=== PATIENT | male | born 1935 | race Caucasian/White ===

== ENCOUNTER 2021-12-12 21:02 | Emergency (ER) | payer OTHER, MEDICARE, SELFPAY ==
--- NOTE | 2021-12-12 21:16 | ED.RN ---
Pt stated he emergently needed to go to the bathroom for a BM. Up to bathroom w/steady gait. RN stayed with pt. Pt then got up and starting vomiting a large amount of brown emesis and having diarrhea. Pt able to cleanse self. Gown placed and pt back to ED room.
[2021-12-12 21:18] VITALS: BP 140/82; PULSE 76; RESP 18; TEMP 36; O2SAT 96; BMI 27.2
[2021-12-12 21:29] VITALS: BP 129/82; PULSE 72; RESP 18; O2SAT 97
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
[2021-12-12 22:37] VITALS: BP 129/70; PULSE 72; RESP 18; O2SAT 98
== END 2021-12-12 22:38 | disposition home or self-care (01) ==
PROVIDERS: Emergency Provider Emergency Medicine; PCP Family Medicine; Visit Provider Emergency Medicine
DX: S80.12XA Contusion of left lower leg, initial encounter (principal); N40.0 Benign prostatic hyperplasia without lower urinary tract symptoms; V48.5XXA Car driver injured in noncollision transport accident in traffic accident, initial encounter
CPT/HCPCS: 99285

== ENCOUNTER 2021-12-14 13:47 | Emergency (ER) | payer OTHER, MEDICARE, SELFPAY ==
[2021-12-14 13:48] VITALS: BP 109/77; PULSE 72; RESP 16; TEMP 36.4; O2SAT 98; BMI 25.1
--- NOTE | 2021-12-14 14:38 | CT_ITS ---
STUDY: CT BRAIN WITHOUT CONTRAST REASON FOR EXAM: Male, 86 years old. HEADACHE Trauma TECHNIQUE: Transaxial CT imaging of the brain was performed without administration of intravenous contrast material. Individualized dose optimization techniques were used for this CT. COMPARISON: 06-30-10 no images. report only. FINDINGS: Normal calvarium. Normal soft tissues. Normal size ventricles and extra-axial spaces for the patient''s age. Normal white matter tracts of the cerebral hemispheres. Normal basal ganglia and thalami. Normal brainstem. Normal cerebellum. There is no intracranial hemorrhage. There are no findings of an acute ischemic infarction. There are calcifications around the carotid artery. These are noted in the cavernous carotid arteries. Normal visualized paranasal sinuses. ASPECTS 10 CT/Brain/Head without Contrast IMPRESSION: There are no acute intracranial findings. Electronically Signed: Deny Hughes MD at 15:08 EDT ,
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
[2021-12-14 15:16] LABS: Absolute Lymphocyte Count 6.09 X10^3/uL (0.83-4.51); Basophil# 0.01 X10^3/uL; Basophil% 0.1 % (0-1); Eosinophil# 0.02 X10^3/uL; Eosinophils% 0.2 % (0-5); Hematocrit 40.8 % (40-54); Hemoglobin 13.4 g/dL (13.0-16.5); Lymphocyte # 6.09 X10^3/ul (0.83-4.51); Lymphocyte % 64.2 % (19-41); Mean Corp Hgb Conc 32.8 g/dL (32-36); Mean Corpuscular Hgb 32.1 pg (27.0-32.0); Mean Corpuscular Volume 97.8 fL (80-94); Mean Platelet Vol. 10.8 fl (6.2-12.0); Monocyte# 0.33 X10^3/uL; Monocyte% 3.5 % (0-10); NRBC Flagged by Analyzer 0 % (0-5); Neutrophil # 3.01 X10^3/uL (2.7-7.7); Neutrophil % 31.8 % (47-70); POSITIVE DIFFERENTIAL YES; POSITIVE MORPHOLOGY YES; Platelet Count 105 K/mm3 (150-450); RBC Distribution Width CV 13.1 % (11.6-14.6); RBC Distribution Width SD 46.6 fl (35.1-43.9); Red Blood Count 4.17 M/mm3 (4.6-6.2); White Blood Count 9.5 K/mm3 (4.4-11.0)
[2021-12-14 15:21] LABS: Differential Indicated SCAN CRITERIA MET
[2021-12-14 15:33] LABS: Anion Gap 4 (5-15); BUN 21 mg/dL (7-18); BUN/Creat Ratio 20.6 RATIO (10-20); Calcium,Total 9.4 mg/dL (8.5-10.1); Chloride 107 mmol/L (98-107); Creatinine, Serum 1.02 mg/dL (0.70-1.30); EST Glomerular Filtration Rate 74 mL/min (>60); Est Glom Filt Rate - Afr Amer 89 mL/min (>60); Estimated Creatinine Clearance 55.37 ml/min; Glucose 93 mg/dL (74-106); Potassium 4.3 mmol/L (3.5-5.1); Sodium Level 139 mmol/L (136-145)
[2021-12-14 15:36] LABS: Differential Comment SCANNED; Reactive Lymphocyte 2+
[2021-12-14 15:45] VITALS: BP 152/95; PULSE 64; RESP 16; O2SAT 96
== END 2021-12-14 15:48 | disposition home or self-care (01) ==
PROVIDERS: Emergency Provider Emergency Medicine; PCP Family Medicine; Visit Provider Emergency Medicine
DX: S80.10XA Contusion of unspecified lower leg, initial encounter (principal); V43.52XA Car driver injured in collision with other type car in traffic accident, initial encounter; H93.299 Other abnormal auditory perceptions, unspecified ear
CPT/HCPCS: 70450; 80048; 85025; 99282

== ENCOUNTER 2022-06-07 14:19 | Emergency (ER) | payer MEDICARE, OTHER, SELFPAY ==
[2022-06-07 14:21] VITALS: BP 116/87; PULSE 75; RESP 16; TEMP 35.9; O2SAT 96; BMI 27.3
--- NOTE | 2022-06-07 15:08 | EDS_ITS ---
HPI History of Present Illness Chief Complaint: Abd Pain Informant: patient and spouse/S.O. Narrative Narrative: Patient presents with significant other evaluation intermittent right-sided chest pains that would come and go states is superficial. Denies trauma denies any heavy lifting. Symptoms more significant earlier that resolved. Very mild symptoms currently. Denies recent cough denies dyspnea. Denies left-sided or substernal chest symptoms. Denies pain with movement. Triage reports abdominal pain however denies abdominal pain denies nausea or vomiting or any diarrhea. No history of shingles he has a vaccine, chickenpox as a child.Denies any ca rdiac history. Prior similar symptoms: No PFSH PFSH Medical History History of kidney stones Retraction of blood clot Home Medications pantoprazole 40 mg tablet,delayed release 40 mg PO DAILY 12/12/21 [History Last Taken Unknown] tamsulosin 0.4 mg capsule 0.4 mg PO DAILY 12/12/21 [History Last Taken Unknown] Allergy/AdvReac Type Severity Reaction Status Date / Time No Known Allergies Allergy Verified 12/14/21 13:48 Surgical History History of back surgery Hx of knee surgery Social History Smoking Status: Never smoker ROS ROS ED Constitutional Constitutional ED: Denies chills, fever(s) or sweats Eyes Eyes: Denies change in vision ENT ENT ED: Denies dysphagia or sore throat Cardiovascular Cardiovascular: Reports chest pain; Denies leg edema, palpitations or racing heartbeat Respiratory/Chest Respiratory/Chest: Denies cough, dyspnea or dyspnea on exertion Gastrointestinal Gastrointestinal: Denies abdominal pain, diarrhea, nausea or vomiting Genitourinary Genitourinary ED: Denies dysuria, hematuria or urinary frequency Musculoskeletal Musculoskeletal: Denies back pain, extremity pain or neck pain Integumentary Denies rash or wounds Neurologic Neurologic: Denies headache(s), paresthesias or weakness EXAM Physical Exam Const Vital Signs: 06/07/22 14:21 06/07/22 14:21 Temperature 96.7 F L 96.7 F L Temperature Source Temporal Temporal Pulse Rate 75 75 Respiratory Rate 16 16 Blood Pressure 116/87 H 116/87 H Blood Pressure Mean 96 96 Pulse Ox 96 96 Oxygen Delivery Method Room Air Room Air Positive well nourished and well developed General Appearance ED: well developed and NAD HEENT Reports moist mucous membranes normocephalic and atraumatic Eyes PERRL, EOMs intact bilaterally and conjunctivae normal General Eye ED: Yes normal appearance of both eyes Neck no lymphadenopathy and supple General: Negative for tenderness Chest Wall inspection of chest normal and palpation of chest normal Chest Narrative: Currently not reproduce pain symptoms, there is no current rash of the chest wall. Chest: Negative for tenderness Resp normal respiratory effort and normal air movement Resp Narrative: Symmetric breath sounds Effort and Inspection: symmetric chest movement; Negative for respiratory distress Cardio regular rate, regular rhythm and no murmurs Peripheral Pulses: pulses 2+ throughout GI normal to inspection, nondistended, normoactive bowel sounds and non-tender Palpation: Negative for guarding or rebound tenderness present Back/Spine no CVA tenderness and no thoracic nor lumbar tenderness Extremity normal to inspection General Extremety ED: Negative for edema or tenderness General Extremity: Negative for edema Neuro oriented x3 and no sensory deficits noted Sensorium / Orientation: awake and alert Skin no rashes or lesions noted and no wounds MDM MDM MDM Narrative Medical decision making narrative: Interventions / MDM: Differential diagnosis: Musculoskeletal chest wall pain, shingles Diagnosis considered but do not suspect: Pneumothorax however normal breath sounds bilaterally. ACS however EKG with no ischemic findings and right-sided chest pain. My EKG interpretation: Sinus rate of 69, no ST or T wave changes QTc 409 PVC noted. Imaging independently reviewed and interpreted by myself: N/A External documents reviewed: N/A Test considered but not ordered:N/A ED course: Nonreproducible symptoms this time. EKG normal. Atypical right- sided symptoms. Discussed monitoring for rash discussion contact PCP or return for treatment if develops. Also discussed if any recurrent worsening or new sy mptoms of the chest to return for reevaluation. All questions were answered. Re-evaluation: stable Disposition discussed with patient/family/significant other: Patient and significant other Case discussed with consulting clinician: N/A Discharge Plan Triage Chief Complaint: Abd Pain ED Provider: Chris Catherine Dx/Rx/DC Orders Clinical Impression: Atypical chest pain Instructions: ED Chest Pain, Uncertain Cause Prescriptions: No Action tamsulosin 0.4 mg capsule 0.4 mg PO DAILY pantoprazole 40 mg tablet,delayed release (DR/EC) 40 mg PO DAILY Primary Care Provider: Kishor Coleman Referrals: Kishor Coleman MD [Primary Care Provider] - 3-5 Days Activity Restrictions/Additional Instructions: Atypical right-sided chest pain. Normal EKG. Monitor for any rash with for possible shingles that may develop. If noted rash contact your PCP or return for treatment. If any recurrent or worsening symptoms return for reevaluation. Otherwise follow-up with your doctor. Disposition Disposition: Home, Self Care Discharge Date/Time: 06/07/22 15:59
--- NOTE | 2022-06-07 15:10 | NURSING ---
NO OLD EKGS
== END 2022-06-07 15:59 | disposition home or self-care (01) ==
PROVIDERS: Emergency Provider Emergency Medicine; PCP Family Medicine; Visit Provider Emergency Medicine
DX: R10.9 Unspecified abdominal pain (principal); R07.89 Other chest pain
CPT/HCPCS: 93005; 99282

== ENCOUNTER → 2022-06-23 | Outpatient (CLI) | payer MEDICARE, SELFPAY ==
--- NOTE | 2022-06-23 11:00 | PET_ITS ---
EXAMINATION: FDG PET/CT INDICATIONS: 87-year-old male with a history of carcinoma of the lung, presenting for restaging examination. COMPARISON EXAMINATION: None available. INDEX LESION SIZE SUV INTERPRETATION Right lower thyroid gland, right anterior neck, level retroclavicular region 30.1 mm, largest 4.1 max Fulfills quantitative criteria for viable neoplasm ? Right hemithorax pulmonary parenchyma, multiple 74.8 mm 6.0 Fulfills quantitative criteria for viable neoplasm ? Right axilla 23.1 mm 3.9 Fulfills quantitative criteria for viable neoplasm ? Abdominal-pelvic mesentery 9.2 cm 5.5 Fulfills quantitative criteria for viable neoplasm ? Spleen-splenic parenchyma 13.3 mm 3.2 Fulfills quantitative criteria for viable neoplasm ? Subcutaneous nodules 44.1 mm 5.3 max Fulfills quantitative criteria for viable neoplasm ? Right posterior ninth-eleventh ribs ? 4.8 max Most consistent with trauma-fracture ? NON-INDEX LESION ? ? ? Anterior, middle mediastinum ? 2.9 max Quantitative criteria for viable neoplasm are not fulfilled ? TECHNIQUE: Following the intravenous administration of 14.98 mCi of F-18 deoxyglucose via the right antecubital fossa, multiplanar image acquisitions of the head, neck, chest, abdomen and pelvis to the level of the midthigh, obtained at one-hour post radiopharmaceutical administration contemporaneously interpreted with the current CT of the head, neck, chest, abdomen and pelvis dated 06/23/2022 via coregistration reveal: SERUM GLUCOSE LEVEL: 126 mg/dL HEIGHT: 71 inches WEIGHT: 196 pounds FINDINGS: HEAD/NECK: Increased radiopharmaceutical concentration is defined in the right anterior neck involving level , right lower thyroid colloid, the right retroclavicular region. The calculated maximum standard uptake value 4.1. The maximum axial diameter of the largest metabolic, morphologic abnormality is 30.1 mm. The visualized portion of the cerebral cortical-subcortical structures demonstrate symmetric and preserved glucose metabolism. CHEST: Enhanced FDG concentration is defined in the right lower anterior and posterior lung zone, right upper, right lower and right middle lobes. The calculated standard uptake value is 6.0. The largest corresponding mass density is 74.8 mm. Facilitated radiopharmaceutical concentration is defined in the anterior mediastinum, the upper middle mediastinum involving lymph node station 2R-L. The calculated standard uptake value is 2.9. Strict quantitative criteria for viable neoplasm are not fulfilled. An increase in radiopharmaceutical concentration is noted in the right axilla in two separate locations with a calculated standard uptake value of 3.9, and the largest corresponding soft tissue density measuring 23.[address] of the chest demonstrates the following anatomic characteristics: A right hemithorax pleural effusion is nonglucose avid. Left and additional right axillary soft tissue densities are nonglucose avid. Calcified and non-calcified additional mediastinal and thoracic perihilar soft tissue densities reveal no evidence of increased tracer uptake. Atherosclerotic calcification is defined in the thoracic aorta without evidence of dilatation, aneurysm formation. Bilateral axillary soft tissue densities are nonglucose avid. ABDOMEN/PELVIS: Multifocal increased radiopharmaceutical concentration is manifest in the abdominal and pelvic mesentery, right abdominal retroperitoneum in the posterior pararenal space, corresponding to soft tissue mass density. The calculated maximum standard uptake value is 5.5. The maximum axial diameter of the largest corresponding metabolic, morphologic abnormality is 9.2 cm. Facilitated FDG uptake is noted within a single nodular focus within the splenic parenchyma, with a calculated standard uptake value of 3.2 > the hepatic reference. The maximum axial diameter of the metabolic, morphologic abnormality is 13.[address] of the abdomen and pelvis is remarkable for the following: Calcified granuloma formation is noted within the hepatic and splenic parenchyma. Multiple cyst formation is noted in the bilateral kidneys. Calcification is defined in the bilateral renal units. Retained oral contrast material is noted within the visualized intestinal tract. Calcified phlebolith formation is identified. Calcification is noted within an enlarged prostate gland. SKELETAL/INTEGUMENTARY: Multiple subcutaneous nodules are defined on inspection of whole-body acquisitions, generating a calculated standard uptake value of 5.3. The maximum axial diameter of the metabolic, morphologic abnormality is 44.1 mm. Increased tracer uptake appears evident in the region of the right posteromedial chest wall, the ninth-eleventh bridge. The calculated standard uptake value 4.8. PET/PET/CT Tumor Base -Thigh Init IMPRESSION: 1. ABNORMAL EXAMINATION INDICATIVE OF MALIGNANT-PROBABLY NEOPLASM. 2. Increased radiopharmaceutical concentration defined in the right lower thyroid gland, anterior neck involving level , and right retroclavicular lymph node distributions fulfills quantitative criteria for viable neoplasm. 3. Enhanced tracer uptake noted in the right hemithorax pulmonary parenchyma to include the right upper, right middle, and right lower lobes, fulfills quantitative criteria for malignant transformation. 3. Facilitated FDG visualized in the right axilla fulfills quantitative criteria for malignant transformation. 4. The abdominal and pelvic mesentery hypermetabolic foci fulfill quantitative criteria for neoplastic infiltration. 5. The splenic focus glucose hypermetabolism fulfills quantitative criteria for viable splenic neoplasm. (Anitha et al., Journal of Nuclear Medicine 44:1072, 2004). 6. Subcutaneous nodular hypermetabolic foci fulfill quantitative criteria for malignancy. 7. The increase in radiopharmaceutical concentration defined in the ninth-eleventh posterior ribs, linear in presentation, likely represents a component of trauma-fracture. Histopathologic analysis may be indicated. 8. Enhanced tracer uptake noted in the mediastinal structures do not fulfill quantitative criteria for viable neoplastic infiltration. (Edwin et al, Journal of Clinical Oncology, 16:2142, 1998). Electronic Signature Max Joseph D.O. Accurate Quantification of SUVs for this report are calculated using the exclusive [employer]. (U.S. Patent No. 10, 674, 983 B2 [phone] [place] patent [phone]). Standardization and correction of the FDG SUV metric via [employer] technology allow for vendor non-specific objective quantitative examination comparison and optimization of the sensitivity and specificity of the FDG PET-CT examination. . Electronically Signed: Max Joseph, at 7:28 EDT ,
== END | disposition home or self-care (01) ==
PROVIDERS: PCP Family Medicine
DX: D49.1 Neoplasm of unspecified behavior of respiratory system (principal)
CPT/HCPCS: 78815; A9552

== ENCOUNTER → 2022-06-29 | Outpatient (CLI) | payer MEDICARE, SELFPAY ==
--- NOTE | 2022-06-29 | FLU_PTH ---
PATIENT: PIOTR PARKS LOC: [facility] U#:[id number] AGE/SX: 87/M ROOM: RE06/29/[address]: Dr. Dustin Elizondo MD : 1935 BED: DIS: 06/29/2022 SPEC #: [id number] RECD: 06/29/22 17:14 STATUS: SHERWIN REChelly #: [id number] ANDIE: 06/29/22 00:[address]: Dustin Elizondo DEPT: CYTOLOGY RECD BY: Sabiha Byrnes ENTERED: 06/30/22 07:52 SP TYPE: Fluid OTHR DR: Dr. Kishor Coleman MD Tissues: A - Thyroid gland, NOS B - Thyroid gland, NOS C - Neck, NOS D - Neck, NOS Procedures: Special Stain Group II Surgery Specimen Level IV Cytospin Fluid Cytology Other HEADER OPERATION: Fine needle aspiration right thyroid PRE-OP DIAGNOSIS: Abnormal thyroid ultrasound/PET scan TISSUE SUBMITTED: A - FNA right thyroid fluid, B - FNA right thyroid x12 slides, C - FNA right neck mass fluid, D - FNA right neck mass x12 slides DIAGNOSIS CYTOLOGY A. Fine needle aspiration, right thyroid nodule (cytospin and cell block): Consistent with B-cell lymphoma of centrocytic origin. See comment. B. Fine needle aspiration, right thyroid nodule (smears): Consistent with lymphoproliferative disorder/lymphoma. See Comment. C. Fine needle aspiration, right neck mass (cytospin and cell block): Consistent with B-cell lymphoma of centrocytic origin. See comment. D. Fine needle aspiration, right neck mass (smears): Consistent with lymphoproliferative disorder/lymphoma. See comment. AM:temo 07/01/2022 COMMENT A & C. Immunohistochemistry ([id number]) supports the above diagnosis and reveals a B-cell lymphocyte population of centrocytic origin with high proliferation index (Ki67 (80%). A biopsy is recommended for definitive classification. B & D. Smears show a mixed small, medium sized and large cell lymphocyte population consistent with a lymphoproliferative disorder. Follicle cells of thyroid origin are not identified. Clinical correlation is suggested. Case has been reviewed in consultation with Dr. Powell who concurs with the above diagnosis. IDC:SJ CYTOLOGY STUDY Slides are reviewed. CYTOLOGY GROSS A - Received is 30 ml of campoverde cloudy fluid labeled with the patient's name and and designated per the requisition as right thyroid. Submitted for cytology preparation including cell block. B - Received are 12 smears labeled with the patient's name and designated per the requisition as right thyroid. Submitted for staining. C - Received is 30 ml of light campoverde cloudy fluid labeled with the patient's name and and designated per the requisition as right neck mass. Submitted for cytology preparation including cell block. D - Received are 12 smears labeled with the patient's name and designated per the requisition as right neck mass. Submitted for staining. / temo 06/30/2022 TC:5 CPT: 99013 x4, 03858 x2
--- NOTE | 2022-06-29 | IMM_PTH ---
PATIENT: PIOTR PARKS LOC: [facility] U#:[id number] AGE/SX: 87/M ROOM: RE06/29/[address]: Dr. Dustin Elizondo MD : 1935 BED: DIS: 06/29/2022 SPEC #: [id number] RECD: 07/01/22 12:59 STATUS: SHERWIN REQ #: [id number] ANDIE: 06/29/22 00:[address]: Dustin Elizondo DEPT: IMMUNOHISTOCHEMISTRY RECD BY: Lindsey Mccullough ENTERED: 07/01/22 13:02 SP TYPE: IMMUNO OTHR DR: Dr. Kishor Coleman MD Tissues: A - Thyroid gland, NOS C - Thyroid gland, NOS Procedures: BCL-2 (add) BCL-6 (add) CD10 (add) CD15 (add) CD20 (add) CD23 (add) CD30 (add) CD43 (add) CD45 (add) CD5 (add) CD79A (add) CYCLIN (add) KI-67 (add) P53 (add) TTF1 (add) MUM1 (add) C-MYC (add) CD3 (initial) PHYSICIAN & INSTITUTION [facility] [id number] SPECIMEN INFORMATION: Tissue Source: A ? FNA, right thyroid, C ? FNA right neck mass Clinical Info: Abnormal thyroid ultrasound/PET scan Specimen Number: [id number] A & C CPT code: 36361 x2, 32132 x34 METHODOLOGY: Deparaffinized sections of prefer/formalin-fixed tissue or PAP/DQ stained slides are incubated with monoclonal/polyclonal antibodies/oligonucleotide probes. Localization is made via biotin free immunoperoxidase method. Appropriate controls are performed and reacted as expected. Results on target cell population are indicated in the following table: RESULTS: ANTIBODY / CLONE RESULT Block A CD3 (PS1) positive, small population of T-cells CD5 (SP10) positive, small population of T-cells CD20 (L26) positive CD45 (RP2/18) positive CD79a (11E3) positive BCL-2 (bcl-2/100/D5) positive TTF-1 (8G7G3/1) negative P53 (DO-7) positive, rare Ki-67 (30-9) positive, high CD10 (56C6) positive CD43 (L60) positive CD23 (1B12) negative CD15 (MMA) negative CD30 (Andreas-H2) negative BCL-6 (JV098Y/A8) positive Cyclin D1/BCL-1 (SP4) negative MUM1 (MRQ-43) * C-MYC (Y69) negative Block C CD3 (PS1) positive CD5 (SP10) positive CD20 (L26) positive CD45 (RP2/18) positive CD79a (11E3) positive BCL-2 (bcl-2/100/D5) positive TTF-1 (8G7G3/1) negative P53 (DO-7) positive, rare Ki-67 (30-9) positive, high CD10 (56C6) positive CD43 (L60) positive CD23 (1B12) negative CD15 (MMA) negative CD30 (Andreas-H2) negative BCL-6 (YU726X/A8) positive Cyclin D1/BCL-1 (SP4) negative MUM1 (MRQ-43) * C-MYC (Y69) negative *?equivocal These tests were developed and their performance characteristics determined by [facility]. They may not have been cleared or approved by the U.S. Food and Drug Administration. The FDA has determined that such clearance or approval is not necessary. The above immunohistochemical/dualISH markers are ordered and reviewed by the Pathologist. INTERPRETATION: A. Fine needle aspiration, right thyroid (cell block): Consistent with B-cell lymphoma of centrocytic origin. C. Fine needle aspiration, right neck mass (cell block): Consistent with B-cell lymphoma of centrocytic origin. AM:temo 07/03/2022 Case has been reviewed in consultation with Dr. Powell who concurs with the above diagnosis. IDC:KEYON
== END | disposition home or self-care (01) ==
PROVIDERS: PCP Family Medicine; Visit Provider Surgery
DX: R93.89 Abnormal findings on diagnostic imaging of other specified body structures (principal)
CPT/HCPCS: 88108; 88161; 88305; 88313; 88341; 88342

== ENCOUNTER → 2022-11-03 | Outpatient (CLI) | payer MEDICARE, SELFPAY ==
--- NOTE | 2022-11-03 09:30 | PET_ITS ---
EXAMINATION: FDG PET-CT INDICATIONS: An 87-year-old male with a history of lymphoma presenting for restaging examination. COMPARISON EXAMINATION: Prior FDG PET CT study dated 06/23/22. INDEX LESION SIZE SUV LUGANO SCORE INTERPRETATION PERSISTENT: Right axilla 2.3 comp to 3.9, 06/23/22 3 comp to 5 Quantitative criteria for viable neoplasm are not fulfilled, interim metabolic improvement-quantitative complete metabolic response. PREVIOUS: all additional prior defined hypermetabolic foci Demonstrate metabolic resolution on the current examination. TECHNIQUE: Following the intravenous administration of 13.53 mCi of F-18 deoxyglucose via the right hand, multiplanar image acquisitions of the head, neck, chest, abdomen and pelvis to level of mid-thigh, lower extremities obtained at one hour post radiopharmaceutical administration contemporaneously interpreted with the current CT of the head, neck, chest, abdomen and pelvis to level of mid-thigh, lower extremities dated 11/03/22 via coregistration and prior FDG PET CT study dated 06/23/22 reveal: SERUM GLUCOSE LEVEL: 123 mg/dl. HEIGHT: 71 inches. WEIGHT: 201 lbs. FINDINGS: Head/Neck: There is no evidence of abnormal increased glucose metabolism in the pharyngeal mucosal space, parapharyngeal space, bilateral-lateral and anterior neck, hypopharynx and distribution of the laryngeal structures. The visualized portion of the cerebral cortical-subcortical structures demonstrate symmetric and preserved glucose metabolism. CHEST: Facilitated uptake is noted in the right axilla in a single nodular focus. The calculated maximum standard uptake value is 2.3 compared to 3.9 defined on the examination dated 06/23/22. The Lugano-Deauville score is 3 compared to 5. There is no quantitative scintigraphic evidence of abnormal increased glucose metabolism within the context of the bilateral hemithorax pulmonary parenchyma, right and left hemithoracic pleural interface, mediastinal structures and thoracic perihilum.? There is visualization of the Eiyjsnft-Nzpp-W-Cath. The previously defined morphologic-anatomic changes described on the prior FDG PET-CT report dated 06/23/22, are essentially unchanged on the current examination. Abdomen/Pelvis: Normal physiologic distribution of the radiopharmaceutical is apparent in the hepatic (4.2) and splenic parenchyma, both renal units, bladder and visualized intestinal tract. Diffuse radiopharmaceutical concentration is noted in all four quadrants of the abdomen and pelvis. Anatomic changes described on the prior FDG PET-CT report dated 06/23/22, are unchanged on the current examination. The previously identified abdominal-pelvic mesenteric-splenic parenchymal hypermetabolic foci are not apparent on the current examination. Skeletal/INTEGUMENTARY: Degenerative changes are noted in the cervical, thoracic and lumbar spine. There is interval resolution of the ninth-eleventh rib and subcutaneous nodularity previously described. PET/PET/CT Tumor Base -Thigh Subs IMPRESSION: 1. NEGATIVE EXAMINATION. There is no definitive quantitative scintigraphic evidence of recurrent-viable neoplasm. 2. Mild increased radiopharmaceutical concentration presumably redefined in the right axilla does not fulfill quantitative criteria for malignant transformation. 3. There is interim resolution of all prior defined hypermetabolic foci as defined above. 4. Overall, compared to the prior FDG PET CT study dated 06/23/22, there is current absence of defined viable neoplastic disease. Electronic Signature Max Joseph D.O. Accurate Quantification of SUVs and standardized [place] scores for this report are calculated using the exclusive [employer] Technology, (U.S. Patent No. 10, 674, 983 B2 [phone] [place] patent [phone] ). Standardization and correction of the FDG SUV metric exclusively available with [employer] intellectual property, allow for vendor non-specific objective quantitative sequential FDG PET-CT comparison and otherwise unobtainable optimization of the sensitivity and specificity of the examination. [email or web address] Electronically Signed: Max Joseph DO at 9:09 EDT ,
== END | disposition home or self-care (01) ==
LOC: ONC 09:20
PROVIDERS: PCP Family Medicine; Referring Provider Internal Medicine Hematology & Oncology; Visit Provider Internal Medicine Hematology & Oncology
DX: C83.38 Diffuse large B-cell lymphoma, lymph nodes of multiple sites (principal); K92.2 Gastrointestinal hemorrhage, unspecified; D64.9 Anemia, unspecified; R06.09 Other forms of dyspnea
CPT/HCPCS: 78815; A9552

== ENCOUNTER 2022-11-27 19:17 | Observation (INO) | payer MEDICARE, SELFPAY ==
[2022-11-27 19:18] VITALS: BP 124/109; PULSE 81; RESP 18; TEMP 36.5; O2SAT 94; BMI 29.7
--- NOTE | 2022-11-27 19:45 | RAD_ITS ---
EXAM: XR CHEST, 1 VIEW CLINICAL INDICATION: chest pain TECHNIQUE: Frontal view of the chest. COMPARISON: No relevant prior studies available. FINDINGS: LUNGS AND PLEURAL SPACES: Unremarkable. No consolidation or edema. No pneumothorax. No effusion. HEART: Unremarkable. Cardiac silhouette not enlarged. MEDIASTINUM: Central airways and mediastinal contour are unremarkable. BONES/JOINTS: Unremarkable. SOFT TISSUES: Unremarkable. TUBES, LINES AND DEVICES: Right-sided Port-A-Cath is in place with the distal tip overlying the superior vena cava. RAD/Chest 1 View (Portable) IMPRESSION: No acute findings in the chest. Electronically Signed: Barry Rojas MD at 20:11 EDT ,
[2022-11-27 19:56] LABS: Absolute Lymphocyte Count 0.89 X10^3/uL (0.83-4.51); Absolute Neutrophil Count 3.2 X10^3/uL (2.0-7.7); Basophil# 0.01 X10^3/uL; Basophil% 0.2 % (0-1); Eosinophil# 0.05 X10^3/uL; Eosinophils% 1.1 % (0-5); Hematocrit 33.3 % (40-54); Hemoglobin 10.1 g/dL (13.0-16.5); Lymphocyte # 0.89 X10^3/ul (0.83-4.51); Lymphocyte % 19.6 % (19-41); Mean Corp Hgb Conc 30.3 g/dL (32-36); Mean Corpuscular Hgb 26.1 pg (27.0-32.0); Mean Platelet Vol. 11.1 fl (6.2-12.0); Monocyte# 0.41 X10^3/uL; Monocyte% 9.1 % (0-10); NRBC Flagged by Analyzer 0 % (0-5); Neutrophil # 3.15 X10^3/uL (2.7-7.7); Neutrophil % 69.6 % (47-70); Platelet Count 134 K/mm3 (150-450); RBC Distribution Width SD 59.8 fl (35.1-43.9); Red Blood Count 3.87 M/mm3 (4.6-6.2); White Blood Count 4.5 K/mm3 (4.4-11.0)
--- NOTE | 2022-11-27 20:12 | EDS_ITS ---
HPI History of Present Illness Chief Complaint: Syncope Narrative Narrative: 87-year-old male presenting with his daughter for evaluation. Apparently they were at [employer] and had just eaten and he sat on a bench and the patient started holding his head and slumped over forward. His daughter states he did not fall and she caught him and set him back. He states he recalls most of this but thinks he might of been unconscious for a little while. Daughter states is at least 5 minutes. EMS was called. By the time EMS arrived the patient was at his baseline. Denies any chest pain or shortness of breath. He states that during the episode he felt blah. He had been otherwise healthy prior to this. 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 He states that he is in remission currently after a negative PET scan. 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% History of kidney stones Pulmonary embolism Retraction of blood clot Home Medications pantoprazole 40 mg tablet,delayed release 40 mg PO DAILY 12/12/21 [History Last Taken Unknown] tamsulosin 0.4 mg capsule 0.4 mg PO DAILY 12/12/21 [History Last Taken Unknown] Allergy/AdvReac Type Severity Reaction Status Date / Time No Known Allergies Allergy Verified 11/27/22 19:21 Surgical History History of back surgery Hx of knee surgery Social History Smoking Status: Never smoker ROS ROS ED Constitutional Constitutional ED: Denies chills, fever(s) or sweats Eyes Eyes: Denies blurry vision or change in vision ENT ENT ED: Denies ear pain or sore throat Cardiovascular Cardiovascular: Denies chest pain, palpitations or racing heartbeat Respiratory/Chest Respiratory/Chest: Denies cough, dyspnea or sputum Gastrointestinal Gastrointestinal: Denies abdominal pain, constipation, diarrhea, nausea or vomiting Genitourinary Genitourinary ED: Denies dysuria, hematuria or urinary frequency Musculoskeletal Musculoskeletal: Denies arthralgias, myalgias or neck pain Integumentary Denies abscess, Abrasions or rash Neurologic Neurologic: Denies headache(s), paresthesias or weakness Psychiatric Psychiatric: Denies anxiety, depression, suicidal ideation or suicidal thoughts Endocrine Endocrinology: Denies polydipsia or polyuria EXAM Physical Exam Const Vital Signs: 11/27/22 19:18 11/27/22 20:12 11/27/22 21:03 Temperature 97.7 F L Temperature Source Oral Pulse Rate 81 Pulse Rate [Lying] 78 Pulse Rate [Sitting (for 1 minute prior to obtaining)] 79 Pulse Rate [Standing (for 1 minute prior to obtaining)] 93 Respiratory Rate 18 Blood Pressure 124/109 H Blood Pressure [Lying] 136/79 H Blood Pressure [Sitting (for 1 minute prior to obtaining)] 135/84 H Blood Pressure [Standing (for 1 minute prior to obtaining)] 141/79 H Blood Pressure Mean 114 Blood Pressure Mean [Lying] 98 Blood Pressure Mean [Sitting (for 1 minute prior to obtaining)] 101 Blood Pressure Mean [Standing (for 1 minute prior to obtaining)] 99 Pulse Ox 94 Oxygen Delivery Method Room Air Room Air 11/27/22 21:31 Temperature Temperature Source Pulse Rate 77 Pulse Rate [Lying] Pulse Rate [Sitting (for 1 minute prior to obtaining)] Pulse Rate [Standing (for 1 minute prior to obtaining)] Respiratory Rate 18 Blood Pressure 131/82 H Blood Pressure [Lying] Blood Pressure [Sitting (for 1 minute prior to obtaining)] Blood Pressure [Standing (for 1 minute prior to obtaining)] Blood Pressure Mean 98 Blood Pressure Mean [Lying] Blood Pressure Mean [Sitting (for 1 minute prior to obtaining)] Blood Pressure Mean [Standing (for 1 minute prior to obtaining)] Pulse Ox 95 Oxygen Delivery Method Room Air Positive well nourished General Appearance ED: NAD; Negative for pallor HEENT Reports moist mucous membranes Eyes PERRL and EOMs intact bilaterally General Eye ED: Negative for pale conjunctiva Chest Wall inspection of chest normal Resp normal respiratory effort and clear to auscultation bilaterally Auscultation: Negative for rales, rhonchi or wheezes Cardio regular rate and regular rhythm GI normal to inspection, nondistended, normoactive bowel sounds Neuro oriented x3 and CN's II-XII intact bilaterally Sensorium / Orientation: alert Motor Exam: strength 5/5 throughout Psych mental status grossly normal Skin no rashes or lesions noted General Skin Exam: Negative for jaundice or pallor MDM MDM MDM Narrative Medical decision making narrative: Patient presenting with an episode of altered mental status. His daughter feels like he might have fainted. He does not recall that he probably lost consciousness. He feels like he is at his baseline now. No history of fainting. He did not have any chest pain or shortness of breath. Patient is in remission from B-cell lymphoma. Differential includes acute coronary syndrome, syncope, CHF, dehydration, electrode normalities, anemia, GI bleed, arrhythmia. Patient is on Eliquis with history of PEs. He does deny black or bloody stools. He has not been ill recently. BC will be obtained to assess white blood cell count hemoglobin, platelets. BMP to assess renal function electrolytes. EKG and high-sensitivity troponin to assess for ischemia and dysrhythmia. Chest pain rule out pneumonia or CHF. Is normal with a white blood cell count of 4.5. Hemoglobin 10.1. Recently this was checked it was 10.5. The daughter knows that his hemoglobin has been low. No black or bloody stools. Renal function and electrolytes within normal limits. High-sensitivity troponin initially 79. Troponin 83. Orthostatic vital signs show normal blood pressures however his heart rate goes from the 70s to the 90s. EKG shows a normal sinus rhythm with a ventricular rate 98 bpm without sign of ischemic change or ectopy. Patient been stable on the heart monitor. Chest x-ray on my interpretation shows no acute process. Radiologist interprets this and agrees. Discussed with hospitalist for admission given the extensive length of syncope and unprovoked syncopal episode. Patient minimal to admission. Impression: 1. Syncope 2. Elevated troponin Lab Data Labs: Laboratory Results - last 24 hr 11/27/22 11/27/22 19:50 21:55 WBC 4.5 RBC 3.87 L Hgb 10.1 L Hct 33.3 L MCV 86.0 MCH 26.1 L MCHC 30.3 L RDW Std Deviation 59.8 H RDW Coeff of Omer 19.0 H Plt Count 134 L MPV 11.1 Immature Gran % (Auto) 0.400 Neut % (Auto) 69.6 Lymph % (Auto) 19.6 [place] % (Auto) 9.1 Eos % (Auto) 1.1 Baso % (Auto) 0.2 Absolute Neuts (auto) 3.2 Absolute Lymphs (auto) 0.89 Nucleated RBC % 0 Sodium 139 Potassium 3.6 Chloride 110 H Carbon Dioxide 25.0 Anion Gap 4 L BUN 23 H Creatinine 1.13 Estim Creat Clear Calc 49.05 Est GFR (MDRD) Af Amer 79 Est GFR (MDRD) Non-Af 65 BUN/Creatinine Ratio 20.4 H Glucose 126 H Calcium 8.9 Troponin I High Sens 79 H 83 H Radiography Diagnostic Testing: Clinical Impression(s) from Imaging Studies Chest X-Ray 11/27/22 19:45 IMPRESSION: No acute findings in the chest. Electronically Signed: Barry Rojas MD at 20:11 EDT , Discharge Plan Triage Chief Complaint: Syncope ED Provider: Everton Boo Dx/Rx/DC Orders Prescriptions: No Action tamsulosin 0.4 mg capsule 0.4 mg PO DAILY pantoprazole 40 mg tablet,delayed release (DR/EC) 40 mg PO DAILY Primary Care Provider: Kishor Coleman Referrals: Kishor Coleman MD [Primary Care Provider] -
[2022-11-27 20:59] LABS: Anion Gap 4 (5-15); BUN 23 mg/dL (7-18); BUN/Creat Ratio 20.4 RATIO (10-20); Calcium,Total 8.9 mg/dL (8.5-10.1); Chloride 110 mmol/L (98-107); Creatinine, Serum 1.13 mg/dL (0.70-1.30); EST Glomerular Filtration Rate 65 mL/min (>60); Est Glom Filt Rate - Afr Amer 79 mL/min (>60); Estimated Creatinine Clearance 49.05 ml/min; Glucose 126 mg/dL (74-106); Potassium 3.6 mmol/L (3.5-5.1); Sodium Level 139 mmol/L (136-145); Troponin-I HS (w/2H Reflex) 79 pg/mL (3.0-78.0)
[2022-11-27 21:03] VITALS: BP 135/84; BP 136/79; BP 141/79; PULSE 78; PULSE 79; PULSE 93
[2022-11-27 21:31] VITALS: BP 131/82; PULSE 77; RESP 18; O2SAT 95
[2022-11-27 21:52] LABS: Reflex Troponin-HS? (from REC) Y
[2022-11-27 22:21] LABS: Troponin-I HS 83 pg/mL (3.0-78.0)
--- NOTE | 2022-11-27 22:59 | HP.PCM.HOS_ITS ---
HPI - General General Date of Admission: 11/27/22 Date of Service: 11/27/22 Chief Complaint: Syncope HPI Narrative PIOTR PARKS, is a 87 M with a significant history of B cell lymphoma in remission with last chemotherapy in September 2022 presents emergency department with syncope. Patient and her daughter went to [facility] [place]. They brought some food and sat down to eat it. Patient was in the sitting position after eating. He bent over. He then became unresponsive and started to lose his postural tone. His daughter held him and prevented him from falling. Patient was then brought to the emergency department. Syncopal episode lasted for about 5 minutes. Of note patient had a chemotherapy on November 06, 2022. The chemotherapy showed mildly reduced ejection fraction. 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% History of kidney stones Pulmonary embolism Retraction of blood clot Home Medications pantoprazole 40 mg tablet,delayed release 40 mg PO DAILY 12/12/21 [History Last Taken Unknown] tamsulosin 0.4 mg capsule 0.4 mg PO DAILY 12/12/21 [History Last Taken Unknown] acyclovir 400 mg tablet 400 mg PO Q12H 11/27/22 [History Last Taken Unknown] allopurinol 100 mg tablet 100 mg PO DAILY 11/27/22 [History Last Taken Unknown] apixaban 5 mg tablet (Eliquis) 5 mg PO Q12H 11/27/22 [History Last Taken Unknown] Allergy/AdvReac Type Severity Reaction Status Date / Time No Known Allergies Allergy Verified 11/27/22 19:21 Family History Other Heart disease Surgical History History of back surgery Hx of knee surgery Social History Smoking Status: Never smoker ROS ROS Narrative Pertinent positives and pertinent negatives as noted in HPI. All other systems were reviewed and are negative Vital Signs Vital Signs Vital Signs: 11/27/22 19:18 11/27/22 20:12 11/27/22 21:03 Temperature 97.7 F L Temperature Source Oral Pulse Rate 81 Pulse Rate [Lying] 78 Pulse Rate [Sitting (for 1 minute prior to obtaining)] 79 Pulse Rate [Standing (for 1 minute prior to obtaining)] 93 Respiratory Rate 18 Blood Pressure 124/109 H Blood Pressure [Lying] 136/79 H Blood Pressure [Sitting (for 1 minute prior to obtaining)] 135/84 H Blood Pressure [Standing (for 1 minute prior to obtaining)] 141/79 H Blood Pressure Mean 114 Blood Pressure Mean [Lying] 98 Blood Pressure Mean [Sitting (for 1 minute prior to obtaining)] 101 Blood Pressure Mean [Standing (for 1 minute prior to obtaining)] 99 Pulse Ox 94 Oxygen Delivery Method Room Air Room Air 11/27/22 21:31 Temperature Temperature Source Pulse Rate 77 Pulse Rate [Lying] Pulse Rate [Sitting (for 1 minute prior to obtaining)] Pulse Rate [Standing (for 1 minute prior to obtaining)] Respiratory Rate 18 Blood Pressure 131/82 H Blood Pressure [Lying] Blood Pressure [Sitting (for 1 minute prior to obtaining)] Blood Pressure [Standing (for 1 minute prior to obtaining)] Blood Pressure Mean 98 Blood Pressure Mean [Lying] Blood Pressure Mean [Sitting (for 1 minute prior to obtaining)] Blood Pressure Mean [Standing (for 1 minute prior to obtaining)] Pulse Ox 95 Oxygen Delivery Method Room Air Weight Weight: 96.5 kg Body Mass Index (BMI) 29.7 Physical Exam Narrative Physical exam: General: Well-nourished, well-developed. Head: Normocephalic, atraumatic, no tenderness Eyes: Vision is grossly intact. EOMI ENT, no trauma, moist mucous membranes, no rhinorrhea Neck: Nontender, No thyromegaly. CVS: Regular rate and rhythm. S1-S2 present. No murmur, gallop or rub. Respiratory : clear to auscultation bilaterally, chest wall nontender Abdomen: Soft, nontender, nondistended, normal bowel sounds, no masses : Deferred Back: Nontender, no CVA tenderness, Extremities: Nontender full range of motion, no trauma Skin: Normal color, no trauma, abrasions Neuro: Alert, oriented, cranial nerves II through XII grossly intact. Psychiatry: Normal mood. Normal affect. Not depressed. Not anxious. Results Lab / Micro Data 11/28/22 02:18 11/28/22 02:18 Labs: Laboratory Results - last 24 hr 11/27/22 19:50: WBC 4.5, RBC 3.87 L, Hgb 10.1 L, Hct 33.3 L, MCV 86.0, MCH 26.1 L, MCHC 30.3 L, RDW Std Deviation 59.8 H, RDW Coeff of Omer 19.0 H, Plt Count 134 L, MPV 11.1, Immature Gran % (Auto) 0.400, Neut % (Auto) 69.6, Lymph % (Auto) 19.6, [place] % (Auto) 9.1, Eos % (Auto) 1.1, Baso % (Auto) 0.2, Absolute Neuts (auto) 3.2, Absolute Lymphs (auto) 0.89, Nucleated RBC % 0, Sodium 139, Potassium 3.6, Chloride 110 H, Carbon Dioxide 25.0, Anion Gap 4 L, BUN 23 H, Creatinine 1.13, Estim Creat Clear Calc 49.05, Est GFR (MDRD) Af Amer 79, Est GFR (MDRD) Non-Af 65, BUN/Creatinine Ratio 20.4 H, Glucose 126 H, Calcium 8.9, Troponin I High Sens 79 H 11/27/22 21:55: Troponin I High Sens 83 H Radiology Impression Chest X-Ray 11/27/22 19:45 IMPRESSION: No acute findings in the chest. Electronically Signed: Barry Rojas MD at 20:11 EDT Reading Location ID and State: [address] [place] [address] Tel , Service support , Assessment & Plan Assessment/Plan (1) Syncope and collapse: PLAN: Plan Syncope and collapse EKG independently reviewed and it was unremarkable. Impression of chest x-ray by radiologist: No acute findings in the chest. Actual chest x-ray image was independently interpreted. I agree with the radiol ogist interpretation. Initial high sensitive troponin was 79. Trended to 83. Continue to trend. Trend troponin Orthostatic vitals per protocol DVT prophylaxis: Not indicated as patient is on Eliquis for history of PE and that has been continued. Time spent in the patient's overall evaluation,decision-making process, review of diagnostic data, adjustment of management, discussion with other providers, nursing nursing and ancillary staff involved in patient's care documentation, 50 minutes. Charges/Coding Visit Charges Inpatient E&M: 75340 Init Hosp L2
[2022-11-28] VITALS (7 sets, daily range): BP systolic 118–149; BP diastolic 75–99; PULSE 69–94; RESP 16–18; TEMP 36.3–36.6; O2SAT 90–98; BMI 28.6
[2022-11-28 02:43] LABS: Absolute Lymphocyte Count 0.74 X10^3/uL (0.83-4.51); Absolute Neutrophil Count 2.9 X10^3/uL (2.0-7.7); Basophil# 0.02 X10^3/uL; Basophil% 0.5 % (0-1); Eosinophil# 0.01 X10^3/uL; Eosinophils% 0.2 % (0-5); Hematocrit 33.4 % (40-54); Lymphocyte # 0.74 X10^3/ul (0.83-4.51); Lymphocyte % 18.3 % (19-41); Mean Corp Hgb Conc 29.9 g/dL (32-36); Mean Corpuscular Hgb 25.9 pg (27.0-32.0); Mean Corpuscular Volume 86.5 fL (80-94); Mean Platelet Vol. 11.1 fl (6.2-12.0); Monocyte# 0.34 X10^3/uL; Monocyte% 8.4 % (0-10); NRBC Flagged by Analyzer 0 % (0-5); Neutrophil # 2.92 X10^3/uL (2.7-7.7); Neutrophil % 72.4 % (47-70); Platelet Count 120 K/mm3 (150-450); RBC Distribution Width CV 18.9 % (11.6-14.6); RBC Distribution Width SD 59.7 fl (35.1-43.9); Red Blood Count 3.86 M/mm3 (4.6-6.2)
[2022-11-28 02:50] LABS: Anion Gap 2 (5-15); BUN 21 mg/dL (7-18); BUN/Creat Ratio 19.4 RATIO (10-20); Calcium,Total 8.7 mg/dL (8.5-10.1); Chloride 112 mmol/L (98-107); Creatinine, Serum 1.08 mg/dL (0.70-1.30); EST Glomerular Filtration Rate 69 mL/min (>60); Est Glom Filt Rate - Afr Amer 83 mL/min (>60); Estimated Creatinine Clearance 51.32 ml/min; Glucose 130 mg/dL (74-106); Potassium 3.9 mmol/L (3.5-5.1); Sodium Level 140 mmol/L (136-145)
[2022-11-28 02:51] LABS: Troponin-I HS 76 pg/mL (3.0-78.0)
[2022-11-28] MEDS: 0.9% Normal Saline (1000mL) 1,000 ML 100 ML IV (06:44)
--- NOTE | 2022-11-28 07:52 | PN.HOSP_ITS ---
Reason for Visit Reason for Visit: Diagnoses Syncope and collapse (11/27/22) Subjective Subjective Feels well. Denies complaints. Objective Data Objective Data Vital Signs: Vital Signs Temp Pulse Resp BP Pulse Ox O2 Del Method 36.6 C 80 18 118/75 95 Room Air 11/28/22 05:50 11/28/22 06:09 11/28/22 05:50 11/28/22 06:09 11/28/22 05:50 11/28/22 05:50 Oxygen Delivery Method Room Air Weight: 93.1 kg Body Mass Index (BMI) 28.6 Lab / Micro Data 11/28/22 02:18 11/28/22 02:18 Labs: Laboratory Results - last 24 hr 11/27/22 19:50: WBC 4.5, RBC 3.87 L, Hgb 10.1 L, Hct 33.3 L, MCV 86.0, MCH 26.1 L, MCHC 30.3 L, RDW Std Deviation 59.8 H, RDW Coeff of Omer 19.0 H, Plt Count 134 L, MPV 11.1, Immature Gran % (Auto) 0.400, Neut % (Auto) 69.6, Lymph % (Auto) 19.6, [place] % (Auto) 9.1, Eos % (Auto) 1.1, Baso % (Auto) 0.2, Absolute Neuts (auto) 3.2, Absolute Lymphs (auto) 0.89, Nucleated RBC % 0, Sodium 139, Potassium 3.6, Chloride 110 H, Carbon Dioxide 25.0, Anion Gap 4 L, BUN 23 H, Creatinine 1.13, Estim Creat Clear Calc 49.05, Est GFR (MDRD) Af Amer 79, Est GFR (MDRD) Non-Af 65, BUN/Creatinine Ratio 20.4 H, Glucose 126 H, Calcium 8.9, T roponin I High Sens 79 H 11/27/22 21:55: Troponin I High Sens 83 H 11/28/22 02:18: WBC 4.0 L, RBC 3.86 L, Hgb 10.0 L, Hct 33.4 L, MCV 86.5, MCH 25.9 L, MCHC 29.9 L, RDW Std Deviation 59.7 H, RDW Coeff of Omer 18.9 H, Plt Coun t 120 L, MPV 11.1, Immature Gran % (Auto) 0.200, Neut % (Auto) 72.4 H, Lymph % (Auto) 18.3 L, [place] % (Auto) 8.4, Eos % (Auto) 0.2, Baso % (Auto) 0.5, Absolute Neuts (auto) 2.9, Absolute Lymphs (auto) 0.74 L, Nucleated RBC % 0, Sodium 140, Potassium 3.9, Chloride 112 H, Carbon Dioxide 26.0, Anion Gap 2 L, BUN 21 H, Creatinine 1.08, Estim Creat Clear Calc 51.32, Est GFR (MDRD) Af Amer 83, Est GFR (MDRD) Non-Af 69, BUN/Creatinine Ratio 19.4, Glucose 130 H, Calcium 8.7, Troponin I High Sens 76 Radiography Diagnostic Testing: Radiology Impression Chest X-Ray 11/27/22 19:45 IMPRESSION: No acute findings in the chest. Electronically Signed: Barry Rojas MD at 20:11 EDT , Physical Exam Const alert and no apparent distress HEENT head/scalp atraumatic and moist oral mucous membranes Resp normal respiratory effort, no retractions, no use of accessory muscles and clear to auscultation bilaterally Cardio regular rate, regular rhythm, S1 normal heart sound and S2 normal heart sound GI normal to inspection, nondistended, normoactive bowel sounds, soft to palpation, non-tender and non-distended Neuro Sensorium / Orientation: awake and alert Assessment & Plan Assessment/Plan (1) Syncope and collapse: PLAN: Initial high sensitive troponin was 79. Trended to 83. Continue to trend. Troponins trending down Echo shows an LVEF of 55%. Stage II diastolic dysfunction. Mildly dilated right ventricle. Mild to moderate global right ventricular systolic dysfunction. Right ventricular systolic pressure at 45 mmHg. D-dimer is pending but likely elevated given the patient's known history of cancer We will check a CTA with PE protocol to see if there is new clot burden Patient likely just needs to be compliant with his apixaban. Patient did have some slightly elevated troponins. Cardiology recommending a 15-day event monitor. PLAN: Plan Chronic conditions * B-cell leukemia: Follow-up with oncology * History of pulmonary embolism: Continue with apixaban DVT prophylaxis: Not indicated as patient is on Eliquis for history of PE and t hat has been continued. Charges/Coding Visit Charges Inpatient E&M: 36836 Subs Hosp L2
--- NOTE | 2022-11-28 07:56 | ECHOD_ITS ---
Reason For Study: Syncope/Near Syncope Procedure This was a 2D Doppler, Color Flow transthoracic echocardiogram. Exam performed portable in patient room. Left Ventricle Normal LV size. Mild concentric left ventricular hypertrophy. The left ventricular ejection fraction is 55 %. Stage 2 diastolic dysfunction. Right Ventricle Moderately dilated right ventricle. Mild to moderate global right ventricular systolic dysfunction. Atria The left and right atria are normal. Mitral Valve Mild (1+) mitral valve insufficiency. Tricuspid Valve Mild tricuspid valve insufficiency. Right ventricular systolic pressure estimated to be 45 mmHg. Aortic Valve Trisinus/trileaflet aortic valve. Pulmonic Valve The pulmonic valve is not well visualized. Great Vessels Mildly dilated aortic root. Pericardium/Pleural Trivial pericardial effusion. MMode/2D Measurements & Calculations LVIDd: 5.0 cm IVSd: 1.4 cm Ao root diam: 3.8 cm LVIDs: 4.1 cm LVPWd: 1.4 cm RVDd: 4.9 cm FS: 18.3 % LAV(MOD-bp): 46.7 ml LVAd ap4: 33.4 cm2 SV(MOD-sp4): 51.4 ml LAV(MOD-bp) Indexed: 22.1 ml/m2 LVLd ap4: 9.0 cm LAV(MOD-sp2): 65.8 ml EDV(MOD-sp4): 103.0 ml LAV(MOD-sp4): 32.6 ml EDV(sp4-el): 104.7 ml LVAs ap4: 20.8 cm2 LVLs ap4: 7.4 cm ESV(MOD-sp4): 51.6 ml ESV(sp4-el): 49.9 ml EF(MOD-sp4): 49.9 % EF(sp4-el): 52.4 % SV(sp4-el): 54.9 ml LA A4 area: 14.9 cm2 LA dimension(2D): 4.0 cm RA A4 area: 20.9 cm2 TAPSE: 2.2 cm Time Measurements MV dec time: 0.09 sec Doppler Measurements & Calculations MV E max keo: 60.1 cm/sec Lat Peak E' Keo: 3.2 cm/sec Med Peak E' Keo: 2.2 cm/sec MV A max keo: 68.3 cm/sec E/E' lat: 19.0 E/E' med: 27.9 MV E/A: 0.88 Ao V2 max: 98.1 cm/sec LV V1 max: 79.1 cm/sec MV dec slope: 647.6 cm/sec2 Ao max P.9 mmHg LV V1 max P.5 mmHg Ao V2 mean: 80.4 cm/sec Ao mean P.7 mmHg Ao V2 VTI: 21.7 cm PA V2 max: 60.9 cm/sec TR max keo: 313.3 cm/sec TR max P.3 mmHg ECHO/Echo Complete Interpretation Summary Mild concentric left ventricular hypertrophy. The left ventricular ejection fraction is 55 %. Stage 2 diastolic dysfunction. Moderately dilated right ventricle. Mild to moderate global right ventricular systolic dysfunction. Mild (1+) mitral valve insufficiency. Mild tricuspid valve insufficiency. Right ventricular systolic pressure estimated to be 45 mmHg. Ordering Physician: Guillermo Ortega Referring Physician: Kishor Coleman Performed By: Rajni Cheema, ESPERANZACS, RVT
[2022-11-28] MEDS: Allopurinol 100 MG Tablet PO (10:01)
[2022-11-28] MEDS: APIXABAN 5 MG TABLET PO (10:01)
[2022-11-28] MEDS: Acyclovir 200 MG Capsule 400 MG PO (10:01)
--- NOTE | 2022-11-28 11:30 | CT_ITS ---
STUDY: CT BRAIN WITHOUT CONTRAST REASON FOR EXAM: Male, 87 years old. Syncope yesterday RADIATION DOSAGE (If Supplied By Facility): CTDIvol = ( 44.99 ) mGy, DLP = ( 863.60 ) mGycm TECHNIQUE: Transaxial CT imaging of the brain was performed without administration of intravenous contrast material. Individualized dose optimization techniques were used for this CT. COMPARISON: No relevant priors. FINDINGS: Normal soft tissue structures. Normal calvarium. There is mild cerebral atrophy with widening of the extra-axial spaces and ventricular dilatation. Normal white matter tracts of the cerebral hemispheres. Normal basal ganglia and thalami. Normal brainstem. Normal cerebellum. There is no intracranial hemorrhage. There are no findings of an acute ischemic infarction. Normal visualized paranasal sinuses. CT/Brain/Head without Contrast IMPRESSION: Chronic involutional changes of the brain. Electronically Signed: Amador Watkins MD at 13:15 EDT ,
--- NOTE | 2022-11-28 11:32 | CON.PCM.CA_ITS ---
Assessment & Plan Assessment/Plan (1) Syncope and collapse: PLAN: Etiology unclear at this point. Possibly vasovagal. Normal left ventr icular systolic function on echocardiogram. Moderate right ventricular dilatation with mild to moderate RV systolic dysfunction. Patient has history of pulmonary embolism. He has been prescribed apixaban but according to his daughter, he is not very regular with taking his apixaban. Check D-dimers. Check CT scan of the head. Recommend 15-day event monitoring upon discharge home. (2) History of pulmonary embolism: PLAN: Patient on apixaban. Mild pulmonary hypertension. Mild to moderate right ventricular dilatation with systolic dysfunction. (3) Right ventricular dilation: PLAN: Most likely secondary with history of pulmonary embolism. 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 HPI Consult Data Date of Consult: 11/28/22 HPI Narrative Reason for Consultation: Syncope HPI Narrative: This patient has past medical history significant for B-cell lymphoma, in remission on chemotherapy. Also history of pulmonary embolism on apixaban. He was with his daughter at the [facility] yesterday. He ate lunch. While sitting on the bench, he slumped forward. Per his daughter, he became unresponsive. He was prevented from falling down initially by his daughter and then by bystanders. Per his daughter, the patient became diaphoretic. He was unresponsive for about 5 minutes and then recovered. No seizure activity noted. No bladder or bowel incontinence. Patient denies any palpitations before or after the event. No chest pains. No shortness of breath. No history of syncope in the past. Per the patient's daughter, patient's last echocardiogram done showed ejection fraction of 47%. No history of coronary artery disease. [facility] Medical History (Updated 11/28/22 @ 11:[address] Morgan Neri MD) B-cell lymphoblastic leukemia Ejection fraction < 50% History of kidney stones Pulmonary embolism Retraction of blood clot Home Medications pantoprazole 40 mg tablet,delayed release 40 mg PO DAILY 12/12/21 [History Last Taken Unknown] tamsulosin 0.4 mg capsule 0.4 mg PO DAILY 12/12/21 [History Last Taken Unknown] acyclovir 400 mg tablet 400 mg PO Q12H 11/27/22 [History Last Taken Unknown] allopurinol 100 mg tablet 100 mg PO DAILY 11/27/22 [History Last Taken Unknown] apixaban 5 mg tablet (Eliquis) 5 mg PO Q12H 11/27/22 [History Last Taken Unknown] Allergy/AdvReac Type Severity Reaction Status Date / Time No Known Allergies Allergy Verified 11/27/22 19:21 Family History Other Heart disease Surgical History History of back surgery Hx of knee surgery Social History Smoking Status: Never smoker Physical Exam Narrative Comfortable. No apparent distress. Heart sounds 1 and 2 are normal. No murmurs or rubs are noted. Chest clear to auscultation bilaterally. Abdomen soft bowel sounds positive. Alert oriented x3. Trace bilateral ankle edema noted. Risk Stratification Risk Stratification Applicable: No Objective Data Vital Signs: Vital Signs Temp Pulse Resp BP Pulse Ox O2 Del Method 97.3 F L 70 16 131/96 H 97 Room Air 11/28/22 09:50 11/28/22 09:50 11/28/22 09:50 11/28/22 09:50 11/28/22 09:50 11/28/22 09:50 Oxygen Delivery Method Room Air Weight: 205 lb 4.006 oz Body Mass Index (BMI) 28.6 Lab / Micro Data Attestation: I reviewed the patient's lab results. 11/28/22 02:18 11/28/22 02:18 Labs: Laboratory Results - last 24 hr 11/27/22 19:50: WBC 4.5, RBC 3.87 L, Hgb 10.1 L, Hct 33.3 L, MCV 86.0, MCH 26.1 L, MCHC 30.3 L, RDW Std Deviation 59.8 H, RDW Coeff of Omer 19.0 H, Plt Count 134 L, MPV 11.1, Immature Gran % (Auto) 0.400, Neut % (Auto) 69.6, Lymph % (Auto) 19.6, Woods % (Auto) 9.1, Eos % (Auto) 1.1, Baso % (Auto) 0.2, Absolute Neuts (auto) 3.2, Absolute Lymphs (auto) 0.89, Nucleated RBC % 0, Sodium 139, Potas sium 3.6, Chloride 110 H, Carbon Dioxide 25.0, Anion Gap 4 L, BUN 23 H, Creatinine 1.13, Estim Creat Clear Calc 49.05, Est GFR (MDRD) Af Amer 79, Est GFR (MDRD) Non-Af 65, BUN/Creatinine Ratio 20.4 H, Glucose 126 H, Calcium 8.9, Troponin I High Sens 79 H 11/27/22 21:55: Troponin I High Sens 83 H 11/28/22 02:18: WBC 4.0 L, RBC 3.86 L, Hgb 10.0 L, Hct 33.4 L, MCV 86.5, MCH 25.9 L, MCHC 29.9 L, RDW Std Deviation 59.7 H, RDW Coeff of Omer 18.9 H, Plt Count 120 L, MPV 11.1, Immature Gran % (Auto) 0.200, Neut % (Auto) 72.4 H, Lymph % (Auto) 18.3 L, Woods % (Auto) 8.4, Eos % (Auto) 0.2, Baso % (Auto) 0.5, Absolute Neuts (auto) 2.9, Absolute Lymphs (auto) 0.74 L, Nucleated RBC % 0, Sodium 140, Potassium 3.9, Chloride 112 H, Carbon Dioxide 26.0, Anion Gap 2 L, BUN 21 H, Creatinine 1.08, Estim Creat Clear Calc 51.32, Est GFR (MDRD) Af Amer 83, Est GFR (MDRD) Non-Af 69, BUN/Creatinine Ratio 19.4, Glucose 130 H, Calcium 8.7, Troponin I High Sens 76 Rhythm Strip Rhythm Strip: Sinus Rhythm Cardiology Labs/Tests 11/27/22 19:50: WBC 4.5, RBC 3.87 L, Hgb 10.1 L, Hct 33.3 L, MCV 86.0, MCH 26.1 L, MCHC 30.3 L, Plt Count 134 L, MPV 11.1, Immature Gran % (Auto) 0.400, Neut % (Auto) 69.6, Lymph % (Auto) 19.6, Woods % (Auto) 9.1, Eos % (Auto) 1.1, Baso % (Auto) 0.2, Absolute Neuts (auto) 3.2, Nucleated RBC % 0, Sodium 139, Potassium 3.6, Chloride 110 H, Carbon Dioxide 25.0, Anion Gap 4 L, BUN 23 H, Creatinine 1.13, Est GFR (MDRD) Af Amer 79, Est GFR (MDRD) Non-Af 65, BUN/Creatinine Ratio 20.4 H, Glucose 126 H, Calcium 8.9 11/28/22 02:18: WBC 4.0 L, RBC 3.86 L, Hgb 10.0 L, Hct 33.4 L, MCV 86.5, MCH 25.9 L, MCHC 29.9 L, Plt Count 120 L, MPV 11.1, Immature Gran % (Auto) 0.200, Neut % (Auto) 72.4 H, Lymph % (Auto) 18.3 L, Woods % (Auto) 8.4, Eos % (Auto) 0.2, Baso % (Auto) 0.5, Absolute Neuts (auto) 2.9, Nucleated RBC % 0, Sodium 140, Potassium 3.9, Chloride 112 H, Carbon Dioxide 26.0, Anion Gap 2 L, BUN 21 H , Creatinine 1.08, Est GFR (MDRD) Af Amer 83, Est GFR (MDRD) Non-Af 69, BUN/Creatinine Ratio 19.4, Glucose 130 H, Calcium 8.7 Rhythm: EKG: Sinus rhythm with PACs. No ST-T wave changes. ECHO: Ejection fraction 55%. Moderate RV dilatation. Mild to moderate RV systolic dysfunction. Grade 2 left ventricular diastolic dysfunction. Stress Test: Cardiac Cath: PCI: CT Surgery: Holter monitor: EPS: PPM: CXR: Chest CT Scan: Radiography Diagnostic Testing: Radiology Impression Chest X-Ray 11/27/22 19:45 IMPRESSION: No acute findings in the chest. Electronically Signed: Barry Rojas MD at 20:11 EDT , Echocardiogram 11/28/22 07:56 Interpretation Summary Mild concentric left ventricular hypertrophy. The left ventricular ejection fraction is 55 %. Stage 2 diastolic dysfunction. Moderately dilated right ventricle. Mild to moderate global right ventricular systolic dysfunction. Mild (1+) mitral valve insufficiency. Mild tricuspid valve insufficiency. Right ventricular systolic pressure estimated to be 45 mmHg. Ordering Physician: Guillermo Ortega Referring Physician: Kishor Coleman Performed By: Rajni Cheema, LUIS, RVT
--- NOTE | 2022-11-28 12:18 | CT_ITS ---
STUDY: CTA CHEST REASON FOR EXAM: Male, 87 years old. Syncope yesterday RADIATION DOSAGE (If Supplied By Facility): CTDIvol = ( 15.14 ) mGy, DLP = ( 493.90 ) mGycm TECHNIQUE: The examination was performed with the intravenous administration of IV 100mL Isovue-370. Post-processing of the angiographic images was performed, with multiplanar reformation and 3D reconstruction. Individualized dose optimization techniques were used for this CT. COMPARISON: Chest x-ray November 27, 2022 FINDINGS: Normal enhancement of the main pulmonary artery and right and left pulmonary arteries. There is focal diminished enhancement involving peripheral (fifth order) left lower lung pulmonary artery consistent with embolism, series 2 images 116/265 through 131/265. There is atherosclerotic calcification of the aortic arch with tortuosity. There is no demonstrated aortic dissection. There are calcifications of the coronary arteries. There are calcified mediastinal lymph nodes. There are calcified left hilar lymph nodes. Normal visualized trachea and bronchi. The lungs are well expanded. There are fibrotic changes of the lower lungs. There are granulomatous calcifications. Normal pleura. Normal chest wall structures. Normal osseous structures. Normal visualized upper abdomen. CT/CTA Chest W/WO Contrast IMPRESSION: Abnormal CTA chest examination, with left lower lung pulmonary embolism. Electronically Signed: Amador Watkins MD at 13:29 EDT ,
[2022-11-28 12:38] LABS: D-Dimer Quantitative (DVT/PE) < 0.27 FEU/ug/m (0.27-0.49)
--- NOTE | 2022-11-28 13:12 | PCM.DC ---
Discharge Instructions Diet Discharge Diet: Low fat / Low cholesterol Dressing / Incision Call your doctor if you observe: Shortness of breath, Dizziness and Fainting spells Follow Up Care Test Results: Test results from this visit will be discussed in further detail at your follow-up appointment, if applicable. Discharge Plan Admission Admit Date/Time: 11/27/22 22:49 Primary Reason for Your Visit: Syncope Attending Provider: Guillermo Ortega Primary Care Provider: Kishor Coleman Consulting Providers: Angel Owusu; Morgan Neri Instructions Additional Instructions / Restrictions: You had a syncopal episode. You had a mild elevation of your cardiac markers. You will need to have a youth nutritional monitor. Also, follow up with cardiology. Please take your apixaban (Eliquis) twice daily, roughly 12 hours apart. Discharge Orders/Prescriptions Prescriptions: Continued tamsulosin 0.4 mg capsule 0.4 mg PO DAILY pantoprazole 40 mg tablet,delayed release (DR/EC) 40 mg PO DAILY allopurinol 100 mg tablet 100 mg PO DAILY Patient Comments: TAKE 1 TABLET BY MOUTH EVERY DAY Eliquis 5 mg tablet 5 mg PO Q12H Patient Comments: TAKE 1 TABLET BY MOUTH TWICE A DAY acyclovir 400 mg tablet 400 mg PO Q12H Patient Comments: TAKE 1 TABLET BY MOUTH TWICE A DAY Other Ambulatory Orders: 14 Day Event Recorder Preventi (Urgent) Timeframe: 1 Day Facility: [facility] - Location: Cardiovascular Services Ordered By: Dr. Guillermo Ortega Referrals / Follow Up: Kishor Coleman MD [Primary Care Provider] - Within 2 Weeks [facility] [Provider Group] - Within 2 Weeks Disposition Disposition (needs filled in before D/C Order can be placed): Home, Self Care
== END 2022-11-28 15:44 | disposition home or self-care (01) ==
LOC: ED 23:01 → PCU 23:52
PROVIDERS: Internal Medicine Cardiovascular Disease; Admitting Provider Hospitalist; Emergency Provider Student in an Organized Health Care Education/Training Program; PCP Family Medicine
DX: R55 Syncope and collapse (principal); C85.10 Unspecified B-cell lymphoma, unspecified site; Z92.21 Personal history of antineoplastic chemotherapy; R77.8 Other specified abnormalities of plasma proteins; Z86.711 Personal history of pulmonary embolism; Z79.01 Long term (current) use of anticoagulants; Z79.899 Other long term (current) drug therapy
CPT/HCPCS: 36415; 70450; 71045; 71275; 80048; 84484; 85025; 85379; 93005; 93306; 99221; 99285; J7030; Q9967; A4216; G0378

== ENCOUNTER → 2022-12-16 | Outpatient (CLI) | payer MEDICARE, SELFPAY | END | disposition home or self-care (01) | LOC: PSN 08:48 | PROVIDERS: PCP Family Medicine; Referring Provider Internal Medicine Cardiovascular Disease; Visit Provider Internal Medicine Cardiovascular Disease | DX: R55 Syncope and collapse (principal) | CPT/HCPCS: 93225; 93226 ==

== ENCOUNTER 2022-12-28 08:28 | Day surgery (SDC) | payer MEDICARE, SELFPAY ==
[2022-12-25 08:22] VITALS: BMI 29.4
--- NOTE | 2022-12-28 09:13 | CL.IE_ITS ---
Patient: PIOTR PARKS Study Date: 12/28/2022 Performing: Chung Ravi MD : 1935 Age: 87 Gender: male PROCEDURES PERFORMED [id number])INSERTION OF LOOP RECORDER INDICATIONS Syncope PROCEDURE DETAILS The patient was brought to the Catheterization Lab in the postabsorptive nonsedated state. Informed consent was obtained prior to the procedure. Local anesthetic was given subcutaneously to the left upper chest area with Lidocaine 2%. ICM Loop Recorder was inserted. Steri-strips applied to Lt chest area. The patient tolerated the procedure well. Estimated Blood Loss: < 10 mls IMPLANTED / EX-PLANTED DEVICES DEVICE PARAMETERS CONCLUSIONS / RECOMMENDATIONS PROCEDURE MEDICATIONS Versed 1 mg IV Oxygen: 2 L/min via nasal cannula Ancef 2 Gm IV @ 12/28/2022 08:52:58 Signed By Chung Ravi MD On 12/28/2022 09:13:16 Chung Ravi MD
== END 2022-12-28 10:30 | disposition home or self-care (01) ==
LOC: CLSP 08:29
PROVIDERS: PCP Family Medicine; Referring Provider Internal Medicine Cardiovascular Disease; Visit Provider Internal Medicine Cardiovascular Disease
DX: R55 Syncope and collapse (principal); I26.99 Other pulmonary embolism without acute cor pulmonale; I27.20 Pulmonary hypertension, unspecified; I51.89 Other ill-defined heart diseases
CPT/HCPCS: 33285; 99152; J7040

== ENCOUNTER → 2023-07-20 | Outpatient (CLI) | payer MEDICARE, SELFPAY ==
[2023-07-20 13:07] LABS: Absolute Lymphocyte Count 0.79 X10^3/uL (0.83-4.51); Absolute Neutrophil Count 2.2 X10^3/uL (2.0-7.7); Basophil# 0.01 X10^3/uL; Basophil% 0.3 % (0-1); Eosinophil# 0.02 X10^3/uL; Eosinophils% 0.6 % (0-5); Hematocrit 40.5 % (40-54); Hemoglobin 12.9 g/dL (13.0-16.5); Lymphocyte # 0.79 X10^3/ul (0.83-4.51); Lymphocyte % 24.2 % (19-41); Mean Corp Hgb Conc 31.9 g/dL (32-36); Mean Corpuscular Hgb 28.8 pg (27.0-32.0); Mean Corpuscular Volume 90.4 fL (80-94); Mean Platelet Vol. 11.5 fl (6.2-12.0); Monocyte# 0.25 X10^3/uL; Monocyte% 7.6 % (0-10); NRBC Flagged by Analyzer 0 % (0-5); Neutrophil # 2.19 X10^3/uL (2.7-7.7); Platelet Count 117 K/mm3 (150-450); RBC Distribution Width CV 16.8 % (11.6-14.6); RBC Distribution Width SD 54.6 fl (35.1-43.9); Red Blood Count 4.48 M/mm3 (4.6-6.2); White Blood Count 3.3 K/mm3 (4.4-11.0)
[2023-07-20 13:50] LABS: Anion Gap 6 (5-15); BUN 17 mg/dL (7-18); BUN/Creat Ratio 14.8 RATIO (10-20); Calcium,Total 9.3 mg/dL (8.5-10.1); Chloride 107 mmol/L (98-107); Creatinine, Serum 1.15 mg/dL (0.70-1.30); EST Glomerular Filtration Rate 64 mL/min (>60); Est Glom Filt Rate - Afr Amer 77 mL/min (>60); Glucose 112 mg/dL (74-106); Magnesium 2.1 mg/dL (1.6-2.6); Potassium 3.9 mmol/L (3.5-5.1); Sodium Level 139 mmol/L (136-145); Thyroid Stim Hormone (TSH) 0.92 uIU/mL (0.358-3.74)
== END | disposition home or self-care (01) ==
LOC: LAB 12:13
PROVIDERS: PCP Family Medicine; Referring Provider Nurse Practitioner Gerontology; Visit Provider Nurse Practitioner Gerontology
DX: R55 Syncope and collapse (principal); I48.91 Unspecified atrial fibrillation; I26.99 Other pulmonary embolism without acute cor pulmonale; I51.89 Other ill-defined heart diseases; Z79.01 Long term (current) use of anticoagulants
CPT/HCPCS: 36415; 80048; 83735; 84443; 85025

== ENCOUNTER 2023-08-27 20:00 | Emergency (ER) | payer MEDICARE, SELFPAY ==
[2023-08-27 20:01] VITALS: BP 137/88; PULSE 87; RESP 16; TEMP 36.7; O2SAT 96; BMI 28.0
--- NOTE | 2023-08-27 21:42 | EKG12_ITS ---
Test Reason : DIZZY Blood Pressure : / mmHG Vent. Rate : 064 BPM Atrial Rate : 064 BPM P-R Int : 194 ms QRS Dur : 086 ms QT Int : 396 ms P-R-T Axes : 049 -30 071 degrees QTc Int : 408 ms Normal sinus rhythm Left axis deviation Minimal voltage criteria for LVH, may be normal variant ( R in aVL ) Nonspecific T wave abnormality Abnormal ECG Confirmed by Joey Cerrato ([id number]), scientific publications editor MARTIN LESTER ([id number]) on 08/30/2023 8:15:06 AM Referred By: Confirmed By:Joey Cerrato
--- NOTE | 2023-08-27 21:43 | EX.ED.DYSGE1 ---
HPI History of Present Illness Chief Complaint: Syncope Detail of Chief Complaint: Syncope and collapse Informant: patient and spouse/S.O. Onset/Context/Timing Onset: Today and Hours Context: Sudden Onset Timing: Intermittent Quality: Syncope and collapse [place] Current Severity: Gone Maximum Severity: Severe Worsened by: Uncertain Relieved by: Not applicable Associated Symptoms Associated Symptoms: Nausea vomiting, diaphoresis and pallor Narrative Narrative: Patient is an 88-year-old male. Patient has prior history of syncope x 2. He also has history of atrial fibrillation on long-term anticoagulant Xarelto. 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 Patient was at a restaurant. He was eating a steak. He had nausea with vomiting followed by pallor, diaphoresis and collapse. There was no seizure activity per . Patient denied shortness of breath or chest pain prior to the nausea and vomiting. He denied abdominal pain. informed that this has happened 2 times in the past. He has not had a recent syncopal episode. He does have an implanted loop recorder. He denies black or maroon-colored stool. He denies diarrhea. Emesis was not bloody or coffee-ground in appearance. Prior similar symptoms: Yes Recent Illness/Hospitalization: No PFSH PFS Medical History Diastolic dysfunction without heart failure Pulmonary hypertension Syncope Ejection fraction < 50% Pulmonary embolism B-cell lymphoblastic leukemia Retraction of blood clot History of kidney stones Home Medications ?Medication ?Instructions ?Recorded ?Last Taken ?Type pantoprazole 40 mg tablet,delayed 40 mg PO DAILY 12/12/21 Unknown History release tamsulosin 0.4 mg capsule 0.4 mg PO DAILY 12/12/21 Unknown History acyclovir 400 mg tablet 400 mg PO Q12H 11/27/22 Unknown History rivaroxaban 20 mg tablet (Xarelto) 20 mg PO DAILY #90 tabs 02/03/23 Unknown Rx sertraline 25 mg tablet 25 mg PO DAILY 03/24/23 Unknown History Allergy/AdvReac Type Severity Reaction Status Date / Time No Known Allergies Allergy Verified 08/27/23 20:04 Family History Other Heart disease Surgical History Hx of knee surgery History of back surgery Social History Smoking Status: Never smoker alcohol intake: current alcohol intake frequency: holidays/special occasions only substance use type: does not use caffeine: Yes ROS ROS ED Constitutional Constitutional ED: Denies chills, fever(s), subjective or sweats Eyes Eyes: Denies blurry vision, change in vision or diplopia ENT ENT ED: Denies ear pain, rhinorrhea or sore throat Cardiovascular Cardiovascular: Denies chest pain, palpitations or racing heartbeat Respiratory/Chest Respiratory/Chest: Denies cough, dyspnea or dyspnea on exertion Gastrointestinal Gastrointestinal: Reports nausea and vomiting; Denies abdominal pain, constipation, diarrhea or melena Musculoskeletal Musculoskeletal: Denies arthralgias, back pain or myalgias Integumentary Denies rash Neurologic Neurologic: Denies headache(s), paresthesias or weakness Endocrine Endocrinology: Denies cold intolerance or heat intolerance Hematologic/Lymphatic Hematologic/Lymphatic: Reports easy bruising EXAM Physical Exam Const Vital Signs: 08/27/23 20:01 Temperature 98.0 F Temperature Source Temporal Pulse Rate 87 Respiratory Rate 16 Blood Pressure 137/88 H Blood Pressure Mean 104 Pulse Ox 96 Oxygen Delivery Method Room Air Positive well nourished and well developed General Appearance ED: well developed and NAD; Negative for cyanotic, diaphoretic or pallor HEENT Reports moist mucous membranes HEENT Narrative: Ears normal. Nares patent. Posterior pharynx is normal. Uvula is midline. No deviation with protrusion. Eyes PERRL and EOMs intact bilaterally General Eye ED: Negative for pale conjunctiva or scleral icterus Neck no lymphadenopathy, supple and no JVD Chest Wall inspection of chest normal and palpation of chest normal Resp normal respiratory effort and clear to auscultation bilaterally Cardio regular rate, S1 normal heart sound, S2 normal heart sound and no murmurs GI normal to inspection, nondistended, normoactive bowel sounds, non-tender, non-distended and no masses; Negative for hepatosplenomegaly GI Narrative: There is no abdominal bruit. There is no pulsatile mass. Back/Spine no CVA tenderness Extremity normal to inspection General Extremety ED: Negative for edema or tenderness General Extremity: Negative for edema Neuro oriented x3, CN's II-XII intact bilaterally and no sensory deficits noted Sensorium / Orientation: alert Psych mental status grossly normal Skin no rashes or lesions noted, no wounds and skin turgor normal General Skin Exam: elasticity normal; Negative for jaundice or pallor MDM MDM MDM Narrative Medical decision making narrative: Patient's history and physical is consistent with vasovagal syncopal episode. Will obtain EKG to rule out inferior myocardial infarction. Prior records were reviewed. History & Record Review Additional record(s) reviewed:: Prior outpatient record, Prior ED visit and Prior labs EKG Initial EKG: Attestation: I personally reviewed and interpreted this EKG as follows: Interpretation: Sinus Rhythm (Rate is 64. [place] to left. [place] interval is 194 ms. QRS duration 86 ms. QT duration 296 ms. Computer is reading minimal voltage criteria for LVH. There is no ischemic changes.) Discharge Plan Triage Chief Complaint: Syncope ED Provider: Lexx Arellano Dx/Rx/DC Orders Clinical Impression: Syncope, vasovagal, Pulmonary hypertension, Diastolic dysfunction without heart failure, [facility] current use of anticoagulant Instructions: ED Fainting, Vagal Reaction Prescriptions: No Action sertraline 25 mg tablet 25 mg PO DAILY Patient Comments: TAKE 1 TABLET BY MOUTH EVERY DAY tamsulosin 0.4 mg capsule 0.4 mg PO DAILY pantoprazole 40 mg tablet,delayed release (DR/EC) 40 mg PO DAILY acyclovir 400 mg tablet 400 mg PO Q12H Patient Comments: TAKE 1 TABLET BY MOUTH TWICE A DAY Xarelto 20 mg tablet 20 mg PO DAILY Qty: 90 3RF Rx Instructions: must administer with evening meal Primary Care Provider: Kishor Coleman Referrals: Kishor Coleman MD [Primary Care Provider] - As Needed Print Language: Irish Disposition Disposition: Home, Self Care
[2023-08-27 21:57] VITALS: BP 121/73; PULSE 65; RESP 18; TEMP 36.6; O2SAT 98
== END 2023-08-27 21:58 | disposition home or self-care (01) ==
PROVIDERS: Emergency Provider Emergency Medicine; PCP Family Medicine; Visit Provider Emergency Medicine
DX: R55 Syncope and collapse (principal); I27.20 Pulmonary hypertension, unspecified; I48.91 Unspecified atrial fibrillation; Z79.01 Long term (current) use of anticoagulants
CPT/HCPCS: 93005; 99282

== ENCOUNTER 2023-09-04 14:28 | Emergency (ER) | payer MEDICARE, SELFPAY ==
[2023-09-04 14:28] VITALS: BP 142/92; PULSE 64; RESP 18; TEMP 36.2; O2SAT 95; BMI 27.9
--- NOTE | 2023-09-04 14:45 | ED.VIS.GI ---
HPI HPI - GI History of Present Illness Chief Complaint: GI Bleed Informant: patient and spouse/S.O. Narrative Narrative: 88-year-old male had a single bout of what appear to be melanotic stool today without any gross bleeding seen, earlier he felt nauseated and lightheaded at 1 point but that passed and has not recurred. He had a colonoscopy and EGD 3 days ago, when asked why they state lots of reasons but it does not sound like he had had any rectal bleeding just prior to that. He is on Xarelto, stopped it for the procedure, and started it back last night. This was all done at [facility] as an outpatient. He currently treated for lymphoma with chemotherapy. He also is getting iron transfusions for iron deficiency anemia according to the but is not taking iron orally. He denies any abdominal pain. He states he vomited up just a little today and it was not bloody, it was a pretzel that he ate and no coffee-ground emesis. [facility] Medical History Diastolic dysfunction without heart failure Pulmonary hypertension Syncope Ejection fraction < 50% Pulmonary embolism B-cell lymphoblastic leukemia Retraction of blood clot History of kidney stones Home Medications ?Medication ?Instructions ?Recorded ?Last Taken ?Type pantoprazole 40 mg tablet,delayed 40 mg PO DAILY 12/12/21 Unknown History release tamsulosin 0.4 mg capsule 0.4 mg PO DAILY 12/12/21 Unknown History acyclovir 400 mg tablet 400 mg PO Q12H 11/27/22 Unknown History rivaroxaban 20 mg tablet (Xarelto) 20 mg PO DAILY #90 tabs 02/03/23 Unknown Rx sertraline 25 mg tablet 25 mg PO DAILY 03/24/23 Unknown History Allergy/AdvReac Type Severity Reaction Status Date / Time No Known Allergies Allergy Verified 09/04/23 14:30 Family History Other Heart disease Surgical History Hx of knee surgery History of back surgery Social History Smoking Status: Never smoker alcohol intake: current alcohol intake frequency: holidays/special occasions only substance use type: does not use caffeine: Yes ROS ROS ED Constitutional Constitutional ED: Denies chills or fever(s) Eyes Eyes: Denies change in vision or diplopia ENT ENT ED: Denies rhinorrhea or sore throat Cardiovascular Cardiovascular: Denies chest pain or palpitations Respiratory/Chest Respiratory/Chest: Denies cough or dyspnea Gastrointestinal Gastrointestinal: Reports melena, nausea and vomiting; Denies abdominal pain, diarrhea or rectal bleeding Genitourinary Genitourinary ED: Denies dysuria or hematuria Musculoskeletal Musculoskeletal: Denies back pain or neck pain Integumentary Denies abscess or rash Neurologic Neurologic: Denies headache(s), paresthesias or weakness Psychiatric Psychiatric: Denies anxiety or suicidal thoughts EXAM Physical Exam Const Vital Signs: 09/04/23 14:28 Temperature 97.2 F L Temperature Source Temporal Pulse Rate 64 Respiratory Rate 18 Blood Pressure 142/92 H Blood Pressure Mean 108 Pulse Ox 95 Oxygen Delivery Method Room Air Positive well nourished and well developed General Appearance ED: well developed and NAD HEENT Reports moist mucous membranes normocephalic and atraumatic Eyes PERRL and EOMs intact bilaterally Neck full ROM and supple Resp normal respiratory effort and clear to auscultation bilaterally Cardio no murmurs Rhythm: abnormal rhythm irregularly irregular GI non-tender and non-distended GI Narrative: On rectal, stool is black without gross blood. Sent for Hemoccult. No rectal/anal tenderness. Auscultation: normoactive bowel sounds Palpation: soft Back/Spine no CVA tenderness General Back: other FROM Extremity normal to inspection General Extremety ED: Negative for edema, pulses abnormal or tenderness General Extremity: Negative for edema or pulses abnormal Neuro oriented x3, CN's II-XII intact bilaterally, no sensory deficits noted and gait normal Sensorium / Orientation: awake and alert Motor Exam: strength 5/5 throughout Skin no rashes or lesions noted and no wounds MDM MDM MDM Narrative Medical decision making narrative: Hemoccult is positive. Pt is already on PPI as an outpatient. Last dose of Xarelto was last night. I reviewed the results of the colonoscopy and EGD that the patient had 3 days ago. On colonoscopy he had what appeared to possibly be a recent bleed from a diverticulum, has had diverticular bleeds in the past. In the EGD, he had some polyps that were resected and hot snared but no lesions or sources of potential bleeding, including the polyps themselves. Also noted was a small hiatal hernia. Here his blood counts look excellent with a hemoglobin of 13, his BUN is elevated consistent with an upper GI bleed, and his Hemoccult is positive. What makes the most sense here is that one of the polyp resection sites bled and caused his melena today after starting his rivaroxaban last night. I discussed this with Dr. Barnett who did the procedure, she agrees. We both agree that given his stability and lack of symptoms along with walking now, he is stable for discharge home and outpatient follow-up. I advised him that he may continue to have melanotic stools for the next couple days, and we discussed reasons to return to the ER, basically signs or symptoms of significant bleeding or hemorrhage. Also were going to make his pantoprazole twice daily for the next 2-/ for 3 days. From speaking with him and significant other, he has a biopsy planned for Wednesday and he is supposed to stop his Xarelto 3 days before that; today is Wednesday. Dr. Barnett said on Wednesday they would call him and check on him and provide further instructions, I suggest discontinuing his Xarelto until at least after his biopsy next week. They agree. I discussed all this with the daughter on the phone and answered her questions as well. History & Record Review Discussion w/independent historian: Patient, Family and Significant other Additional record(s) reviewed:: Other (Colonoscopy and EGD at [facility] 3 days ago, see MDM) Lab Data Attestation: I reviewed the patient's lab results. Labs: Laboratory Results - last 24 hr 09/04/23 14:45 WBC 4.7 RBC 4.34 L Hgb 13.0 Hct 39.5 L MCV 91.0 MCH 30.0 MCHC 32.9 RDW Std Deviation 48.6 H RDW Coeff of Omer 14.5 Plt Count 94 L MPV 11.7 Immature Gran % (Auto) 0.400 Neut % (Auto) 80.2 H Lymph % (Auto) 12.7 L [place] % (Auto) 6.1 Eos % (Auto) 0.4 Baso % (Auto) 0.2 Absolute Neuts (auto) 3.8 Absolute Lymphs (auto) 0.60 L Nucleated RBC % 0 Sodium 140 Potassium 3.7 Chloride 107 Carbon Dioxide 27.0 Anion Gap 6 BUN 25 H Creatinine 0.94 Estim Creat Clear Calc 62.68 Est GFR (MDRD) Af Amer 97 Est GFR (MDRD) Non-Af 80 BUN/Creatinine Ratio 26.5 H Glucose 117 H Calcium 9.3 Management Discussion w/another healthcare provider: Respiratory Care Program Director (Surgery Dr. Barnett) Discharge Plan Triage Chief Complaint: GI Bleed ED Provider: Amador Chávez Dx/Rx/DC Orders Clinical Impression: Acute upper gastrointestinal bleeding Instructions: ED Upper GI Bleeding (Stable) Prescriptions: Continued pantoprazole 40 mg tablet,delayed release (DR/EC) 40 mg PO DAILY acyclovir 400 mg tablet 400 mg PO Q12H Patient Comments: TAKE 1 TABLET BY MOUTH TWICE A DAY Held Xarelto 20 mg tablet 20 mg PO DAILY Qty: 90 3RF Hold Instructions: until told to resume, no earlier than 09/08 Rx Instructions: must administer with evening meal No Action sertraline 25 mg tablet 25 mg PO DAILY Patient Comments: TAKE 1 TABLET BY MOUTH EVERY DAY tamsulosin 0.4 mg capsule 0.4 mg PO DAILY Primary Care Provider: Kishor Coleman Referrals: Amanda Barnett MD [Med Staff - Active Staff] - Kishor Coleman MD [Primary Care Provider] - Activity Restrictions/Additional Instructions: If you have already taken your pantoprazole today, take another 1 tonight and then take it 1 tablet 2 times per day for tomorrow and Wednesday. Expect to see more black tarry stools over the next couple days. It should improve gradually not worsen. If you have bright red blood in the toilet, return to the ER. If you are vomiting blood, return to the ER. If you pass out with standing up, return to the ER. Make sure you are drinking plenty of fluids. Avoid acidic, spicy foods for the next 4-5 days. This includes tomato based foods. Print Language: Serbian Disposition Disposition: Home, Self Care
[2023-09-04 15:17] LABS: Absolute Neutrophil Count 3.8 X10^3/uL (2.0-7.7); Basophil# 0.01 X10^3/uL; Basophil% 0.2 % (0-1); Eosinophil# 0.02 X10^3/uL; Eosinophils% 0.4 % (0-5); Hematocrit 39.5 % (40-54); Lymphocyte % 12.7 % (19-41); Mean Corp Hgb Conc 32.9 g/dL (32-36); Mean Platelet Vol. 11.7 fl (6.2-12.0); Monocyte# 0.29 X10^3/uL; Monocyte% 6.1 % (0-10); NRBC Flagged by Analyzer 0 % (0-5); Neutrophil % 80.2 % (47-70); POSITIVE COUNT YES; POSITIVE DIFFERENTIAL YES; Platelet Count 94 K/mm3 (150-450); RBC Distribution Width CV 14.5 % (11.6-14.6); RBC Distribution Width SD 48.6 fl (35.1-43.9); Red Blood Count 4.34 M/mm3 (4.6-6.2); White Blood Count 4.7 K/mm3 (4.4-11.0)
[2023-09-04 15:25] LABS: Anion Gap 6 (5-15); BUN 25 mg/dL (7-18); BUN/Creat Ratio 26.5 RATIO (10-20); Calcium,Total 9.3 mg/dL (8.5-10.1); Chloride 107 mmol/L (98-107); Creatinine, Serum 0.94 mg/dL (0.70-1.30); EST Glomerular Filtration Rate 80 mL/min (>60); Est Glom Filt Rate - Afr Amer 97 mL/min (>60); Estimated Creatinine Clearance 62.68 ml/min; Glucose 117 mg/dL (74-106); Potassium 3.7 mmol/L (3.5-5.1); Sodium Level 140 mmol/L (136-145)
--- NOTE | 2023-09-04 15:47 | ED.RN ---
[facility] DR[facility] HE[facility] PAGED AT [id number] MENDOZA.
[2023-09-04 16:28] VITALS: BP 141/83; PULSE 69; RESP 16; O2SAT 96
== END 2023-09-04 16:29 | disposition home or self-care (01) ==
PROVIDERS: Emergency Provider Emergency Medicine; PCP Family Medicine; Visit Provider Emergency Medicine
DX: K92.2 Gastrointestinal hemorrhage, unspecified (principal); C85.90 Non-Hodgkin lymphoma, unspecified, unspecified site; I50.30 Unspecified diastolic (congestive) heart failure; Z86.711 Personal history of pulmonary embolism; Z79.01 Long term (current) use of anticoagulants
CPT/HCPCS: 80048; 82274; 85025; 99283; A4216

== ENCOUNTER 2023-09-07 19:12 | Emergency (ER) | payer MEDICARE, SELFPAY ==
[2023-09-07] VITALS (7 sets, daily range): BP systolic 115–140; BP diastolic 67–82; PULSE 65–87; RESP 16–22; TEMP 36.8–36.9; O2SAT 92–97; BMI 28.3
--- NOTE | 2023-09-07 19:44 | EKG12_ITS ---
Test Reason : DYSRHYTHMIA Blood Pressure : / mmHG Vent. Rate : 072 BPM Atrial Rate : 072 BPM P-R Int : 190 ms QRS Dur : 086 ms QT Int : 314 ms P-R-T Axes : 058 -26 073 degrees QTc Int : 343 ms Normal sinus rhythm with sinus arrhythmia Minimal voltage criteria for LVH, may be normal variant ( R in aVL ) Nonspecific T wave abnormality Abnormal ECG Confirmed by Joey Cerrato ([id number]), market editor CADEN HOLCOMB ([id number]) on 09/08/2023 9:51:44 AM Referred By: YOBANI Confirmed By:Joey Cerrato
--- NOTE | 2023-09-07 19:50 | RAD_ITS ---
EXAM: XR CHEST, 1 VIEW CLINICAL INDICATION: chest pain TECHNIQUE: Frontal view of the chest. COMPARISON: No relevant prior studies available. FINDINGS: LUNGS AND PLEURAL SPACES: Unremarkable. No consolidation or edema. No pneumothorax. No effusion. HEART: Unremarkable. Cardiac silhouette not enlarged. MEDIASTINUM: Central airways and mediastinal contour are unremarkable. BONES/JOINTS: Unremarkable. No acute fracture. SOFT TISSUES: Unremarkable. RAD/Chest 1 View (Portable) IMPRESSION: No radiographic evidence of acute cardiopulmonary disease. Electronically Signed: Barry Rojas MD at 20:22 EDT ,
--- NOTE | 2023-09-07 20:10 | EX.ED.DYSGE1 ---
HPI History of Present Illness Chief Complaint: Syncope Informant: patient, spouse/S.O. and family (Daughter) Onset/Context/Timing Onset: Today Context: Sudden Onset Timing: Intermittent Current Severity: Gone Maximum Severity: Moderate Narrative Narrative: [id number] male history of intermittent A-fib, prior PE was on Xarelto is recently come off of it due to upper or lower endoscopies and black stool. 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 Has masses that they are going to biopsy coming up. 2 weeks ago had a syncopal episode after vomiting. Today he ate had nausea and threw up and then passed out. Denies any injuries. No chest pain. Totally has passed out about 5 times in the last several years. They never figured out a specific cause. He has a loop recorder they checked at the last time the have not been able to find any significant dysrhythmia. Currently states he feels well. Prior similar symptoms: Yes Recent Illness/Hospitalization: No PFSH PFSH Medical History Diastolic dysfunction without heart failure Pulmonary hypertension Syncope Ejection fraction < 50% Pulmonary embolism B-cell lymphoblastic leukemia Retraction of blood clot History of kidney stones Home Medications ?Medication ?Instructions ?Recorded ?Last Taken ?Type pantoprazole 40 mg tablet,delayed 40 mg PO DAILY 12/12/21 Unknown History release tamsulosin 0.4 mg capsule 0.4 mg PO DAILY 12/12/21 Unknown History acyclovir 400 mg tablet 400 mg PO Q12H 11/27/22 Unknown History rivaroxaban 20 mg tablet (Xarelto) 20 mg PO DAILY #90 tabs 02/03/23 Unknown Rx sertraline 25 mg tablet 25 mg PO DAILY 03/24/23 Unknown History Allergy/AdvReac Type Severity Reaction Status Date / Time No Known Allergies Allergy Verified 09/04/23 14:30 Family History Other Heart disease Surgical History Hx of knee surgery History of back surgery Social History Smoking Status: Never smoker alcohol intake: current alcohol intake frequency: holidays/special occasions only substance use type: does not use caffeine: Yes ROS ROS ED ROS Narrative Positive vomiting today. Denies recent diarrhea. Dysuria or fever. No chest pain. Review of Systems ROS Unobtainable: Denies due to encephalopathy Constitutional Constitutional ED: Denies chills or fever(s) Eyes Eyes: Denies blurry vision ENT ENT ED: Denies ear pain Cardiovascular Cardiovascular: Denies chest pain Respiratory/Chest Respiratory/Chest: Denies cough or dyspnea Gastrointestinal Gastrointestinal: Reports nausea and vomiting; Denies abdominal pain, constipation, diarrhea or melena Genitourinary Genitourinary ED: Denies dysuria or hematuria Musculoskeletal Musculoskeletal: Denies arthralgias or back pain Integumentary Denies abscess, Abrasions or rash Neurologic Neurologic: Denies headache(s) or paresthesias Psychiatric Psychiatric: Denies anxiety or depression Endocrine Endocrinology: Denies cold intolerance Hematologic/Lymphatic Hematologic/Lymphatic: Reports none Allergic/Immunologic Allergic/Immunologic ED: Denies mouth swelling, tongue swelling or urticaria EXAM Physical Exam Narrative Exam Narrative: 80-year-old male no acute distress vital signs stable afebrile. Pulse ox 95% on room air no signs hypoxia. He is sitting upright in bed. Clinically looks very well. and daughter at bedside. Patient is in no distress. H EENT exam unremarkable. Moist extremities. No trauma to his head or face. Neck nontender. Lungs clear. Heart regular rhythm rate about 70 no murmur. Chest wall and ribs nontender. Abdomen soft nontender. No peritoneal signs. Moving all 4 extremities. 5 out of 5 public service administrator strength. Dorsi plantarflexion intact. Neurologically is awake and alert. Answering questions following commands. Back nontender. Very benign appearing exam. Const Vital Signs: 09/07/23 19:12 09/07/23 19:17 09/07/23 19:51 Temperature 98.4 F Temperature Source Temporal Pulse Rate 72 Pulse Rate [Lying] Pulse Rate [Sitting (for 1 minute prior to obtaining)] Pulse Rate [Standing (for 1 minute prior to obtaining)] Respiratory Rate 16 Blood Pressure 123/69 H Blood Pressure [Lying] Blood Pressure [Sitting (for 1 minute prior to obtaining)] Blood Pressure [Standing (for 1 minute prior to obtaining)] Blood Pressure Mean 87 Blood Pressure Mean [Lying] Blood Pressure Mean [Sitting (for 1 minute prior to obtaining)] Blood Pressure Mean [Standing (for 1 minute prior to obtaining)] Pulse Ox 95 Oxygen Delivery Method Room Air Room Air 09/07/23 20:12 09/07/23 20:27 09/07/23 21:00 Temperature Temperature Source Pulse Rate 65 68 Pulse Rate [Lying] 67 Pulse Rate [Sitting (for 1 minute prior to obtaining)] 74 Pulse Rate [Standing (for 1 minute prior to obtaining)] 87 Respiratory Rate 19 H 22 H Blood Pressure 132/78 H 129/69 H Blood Pressure [Lying] 126/76 H Blood Pressure [Sitting (for 1 minute prior to obtaining)] 123/82 H Blood Pressure [Standing (for 1 minute prior to obtaining)] 115/67 Blood Pressure Mean 96 89 Blood Pressure Mean [Lying] 92 Blood Pressure Mean [Sitting (for 1 minute prior to obtaining)] 95 Blood Pressure Mean [Standing (for 1 minute prior to obtaining)] 83 Pulse Ox 95 92 Oxygen Delivery Method Room Air Room Air Positive well nourished and well developed; Negative for cachectic, contractures or unkempt General Appearance ED: well developed and NAD; Negative for unkempt, cachectic, contractures, cyanotic, diaphoretic or pallor Nutritional Appearance: Negative for cachectic HEENT Reports moist mucous membranes; Denies dry mucous membranes Negative for trauma or tenderness Mouth ED: No dry mucous membranes Mouth: No dry mucous membranes Eyes PERRL and EOMs intact bilaterally General Eye ED: Negative for pale conjunctiva or scleral icterus Neck no lymphadenopathy, supple and no JVD General: Negative for tenderness Lymph Lymphatic: Negative for other Chest Wall inspection of chest normal and palpation of chest normal Chest: Negative for other Resp normal respiratory effort and clear to auscultation bilaterally Effort and Inspection: Negative for retractions Auscultation: Negative for rales, rhonchi, wheezes or diminished lung sounds Cardio regular rate, regular rhythm, S1 normal heart sound, S2 normal heart sound and no murmurs Palpation: Negative for palpable S3 or palpable S4 Rate: Negative for bradycardia or tachycardic Rhythm: Negative for abnormal rhythm GI normal to inspection, nondistended, normoactive bowel sounds, non-tender, non-distended and no masses Inspection: Negative for abdominal distention Auscultation: normoactive bowel sounds Palpation: soft; Negative for tender or guarding Back/Spine no CVA tenderness General Back: Negative for CVA tenderness Cervical Spine: Negative for cervical spine tenderness Thoracic Spine / Upper Back: Negative for thoracic spinal tenderness or paraspinal muscle tenderness Lumbar Spine / Lower Back: Negative for lumbar spinal tenderness Extremity normal to inspection General Extremety ED: Negative for edema or tenderness General Extremity: Negative for edema Neuro CN's II-XII intact bilaterally Sensorium / Orientation: alert; Negative for orientation impaired, lethargic or stuporous Motor Exam: strength 5/5 throughout; Negative for general weakness Psych mental status grossly normal Appearance: Negative for unkempt Attitude: No agitated Mood & Affect: Negative for depressed, anxious or tearful Skin no rashes or lesions noted and no wounds General Skin Exam: Negative for jaundice or pallor Lesions: No lesion noted Rashes: No rashes noted Trauma: Negative for abrasion Wounds: Negative for wounds noted MDM MDM MDM Narrative Medical decision making narrative: 88-year-old male with multiple episodes over the last several years of syncope without specific cause. Today had nausea and vomiting after eating and had a syncopal episode. Denies any complaints at this time. Is benign exam. Undergo cardiac workup. He has a loop recorder in the evaluated the last time he passed out were not able to find anything. Repeat exam patient doing well at 9:49 PM he and I, his and daughter Long discussion at bedside. He has had this multiple times. They never find a specific cause. Today does feel like vasovagal syncope. After he threw up. He has a loop recorder. We attempted to call the [facility] but they are not available at this time to give us a loop recording interrogation. Patient wants to go home. Family is comfortable with him going home. Will follow-up with cardiology office tomorrow. History & Record Review Discussion w/independent historian: Patient Additional record(s) reviewed:: Prior inpatient record, Prior outpatient record, Prior ED visit and Prior labs Lab Data Attestation: I reviewed the patient's lab results. Lab results narrative: CBC shows a white count of 3.7. H&H 11.9 and 35.6. Platelets 101. He has a history of chronic anemia. Electrolytes show potassium 3.4 gap 4 normal BUN and creatinine of 18 and 1. Glucose 110. Troponin 22. Chest x-ray unremarkable. Orthostatic vital signs negative. Labs: Laboratory Results - last 24 hr 09/07/23 19:41 WBC 3.7 L RBC 3.86 L Hgb 11.9 L Hct 35.6 L MCV 92.2 MCH 30.8 MCHC 33.4 RDW Std Deviation 48.3 H RDW Coeff of Omer 14.4 Plt Count 101 L MPV 11.5 Immature Gran % (Auto) 0.800 Neut % (Auto) 70.2 H Lymph % (Auto) 19.3 [place] % (Auto) 9.1 Eos % (Auto) 0.3 Baso % (Auto) 0.3 Absolute Neuts (auto) 2.6 Absolute Lymphs (auto) 0.72 L Nucleated RBC % 0 Sodium 138 Potassium 3.4 L Chloride 107 Carbon Dioxide 27.0 Anion Gap 4 L BUN 18 Creatinine 1.16 Estim Creat Clear Calc 51.12 Est GFR (MDRD) Af Amer 76 Est GFR (MDRD) Non-Af 63 BUN/Creatinine Ratio 15.5 Glucose 110 H Calcium 9.2 Troponin I High Sens 22 Radiography Chest X-Ray - ED: 1 View, Read by ED Physician, Read by Radiologist, Normal, Heart, Lungs, Mediastinum, Bony Structures, No Acute Disease and Chronic Changes Diagnostic Testing: Clinical Impression(s) from Imaging Studies Chest X-Ray 09/07/23 19:50 IMPRESSION: No radiographic evidence of acute cardiopulmonary disease. Electronically Signed: Barry Rojas MD at 20:22 EDT , Chest x-ray, portable, 2 films, interpreted by myself and radiologist shows no acute abnormality. Normal cardiac silhouette. Left-sided loop recorder. Normal lung karimi. Rhythm Strip Rhythm Strip: Sinus Rhythm Rate: 72 Ectopy: None EKG Initial EKG: Attestation: I personally reviewed and interpreted this EKG as follows: Interpretation: Sinus Rhythm and No Acute Injury Pattern Comments: Normal sinus rhythm rate of 72 no acute signs of MS or ischemia. Discharge Plan Triage Chief Complaint: Syncope ED Provider: Eitan Carter Dx/Rx/DC Orders Clinical Impression: Syncope, Vasovagal near-syncope, Hx of pulmonary embolus Instructions: ED Fainting, Vagal Reaction Prescriptions: No Action sertraline 25 mg tablet 25 mg PO DAILY Patient Comments: TAKE 1 TABLET BY MOUTH EVERY DAY tamsulosin 0.4 mg capsule 0.4 mg PO DAILY pantoprazole 40 mg tablet,delayed release (DR/EC) 40 mg PO DAILY acyclovir 400 mg tablet 400 mg PO Q12H Patient Comments: TAKE 1 TABLET BY MOUTH TWICE A DAY Xarelto 20 mg tablet 20 mg PO DAILY Qty: 90 3RF Rx Instructions: must administer with evening meal Primary Care Provider: Kishor Coleman Referrals: Morgan Neri MD [Med Staff - Active Staff] - As soon as possible Kishor Coleman MD [Primary Care Provider] - Activity Restrictions/Additional Instructions: Call and follow-up with your central office frame wirer office tomorrow. Return if feeling worse. Print Language: Wolof Disposition Disposition: Home, Self Care
[2023-09-07 20:12] LABS: Anion Gap 4 (5-15); BUN 18 mg/dL (7-18); BUN/Creat Ratio 15.5 RATIO (10-20); Calcium,Total 9.2 mg/dL (8.5-10.1); Chloride 107 mmol/L (98-107); Creatinine, Serum 1.16 mg/dL (0.70-1.30); EST Glomerular Filtration Rate 63 mL/min (>60); Est Glom Filt Rate - Afr Amer 76 mL/min (>60); Estimated Creatinine Clearance 51.12 ml/min; Glucose 110 mg/dL (74-106); Potassium 3.4 mmol/L (3.5-5.1); Sodium Level 138 mmol/L (136-145); Troponin-I HS 22 pg/mL (3.0-78.0)
[2023-09-07 20:51] LABS: Absolute Lymphocyte Count 0.72 X10^3/uL (0.83-4.51); Absolute Neutrophil Count 2.6 X10^3/uL (2.0-7.7); Basophil# 0.01 X10^3/uL; Basophil% 0.3 % (0-1); Eosinophil# 0.01 X10^3/uL; Eosinophils% 0.3 % (0-5); Hematocrit 35.6 % (40-54); Hemoglobin 11.9 g/dL (13.0-16.5); Lymphocyte # 0.72 X10^3/ul (0.83-4.51); Lymphocyte % 19.3 % (19-41); Mean Corp Hgb Conc 33.4 g/dL (32-36); Mean Corpuscular Hgb 30.8 pg (27.0-32.0); Mean Corpuscular Volume 92.2 fL (80-94); Mean Platelet Vol. 11.5 fl (6.2-12.0); Monocyte# 0.34 X10^3/uL; Monocyte% 9.1 % (0-10); NRBC Flagged by Analyzer 0 % (0-5); Neutrophil # 2.62 X10^3/uL (2.7-7.7); Neutrophil % 70.2 % (47-70); Platelet Count 101 K/mm3 (150-450); RBC Distribution Width CV 14.4 % (11.6-14.6); RBC Distribution Width SD 48.3 fl (35.1-43.9); Red Blood Count 3.86 M/mm3 (4.6-6.2); White Blood Count 3.7 K/mm3 (4.4-11.0)
== END 2023-09-07 22:08 | disposition home or self-care (01) ==
PROVIDERS: Emergency Provider Emergency Medicine; PCP Family Medicine; Visit Provider Emergency Medicine
DX: R55 Syncope and collapse (principal); I50.30 Unspecified diastolic (congestive) heart failure; I48.91 Unspecified atrial fibrillation; Z79.01 Long term (current) use of anticoagulants; Z86.711 Personal history of pulmonary embolism
CPT/HCPCS: 71045; 80048; 84484; 85025; 93005; 99284

== ENCOUNTER → 2023-09-28 | Outpatient (CLI) | payer MEDICARE, SELFPAY ==
[2023-09-28 10:05] VITALS: BP 153/89; PULSE 65; RESP 18; TEMP 36.6; O2SAT 95; BMI 26.4
--- NOTE | 2023-09-28 11:38 | PCM.OP.PRO ---
Procedure Report Date of Procedure: 09/28/23 Assessment & Plan Assessment/Plan (1) Diffuse large b-cell lymphoma, lymph nodes of multiple sites: Procedures Radiology Radiology Access Procedures: [id number] Insertion of PICC w/out port or pump Procedure Time Out Time Out Informed consent given: Yes Consent signed: Yes Time out checklist: patient, procedure, site marked/identified, positioning of patient, supplies available and allergies confirmed Time out staff in room: Yes Time out verified: Yes Time out date: 09/28/23 Time out time: 10:25 PICC Line Consent Screening tool completed:: Yes Consent obtained:: Yes Consent given by (patient or responsible libertarian):: patient Line successful (if no, document why in comments):: Yes Insertion Reason for Insertion: Chemotherapy Date of Insertion: 09/28/23 Ok to use: Yes Type of PICC inserted: Single Power PICC PICC Lot #: [id number] PICC Reference #: [id number] Microintroducer Used: Yes (in kit) Ultrasound/Equipment Used: Probe Cover Kit Trimmed Length (cm): 45 Insertion Length (cm): 45 Exposed Length (cm): 0 Tip Placement: Caval Atrial Junction Placement Confirmation: 3CG Insertion Vein: Right Basilic Insertion Attempts: 1 Local Anesthesia Used: Lidocaine 1% (in kit) Dressing Applied: Statlock and Tegaderm CHG Arm Measurement above site (in cm): 30 Patient Tolerated Procedure: Well Threading Difficulties: No Comments Comment: Patient identity was verified with two patient identifiers. Informed consent was obtained and time-out was completed. Hands were sanitized. The patient was positioned supine with right arm at 90 degrees. The patient's upper arm vasculature was assessed using ultrasound. Patency of the right basilic vein was confirmed and the vein was externally marked. An external measurement was obtained of 45 cm. External leads were applied to the patient's right upper chest and laterally and inferior of the umbilicus on the mid axillary line. Cap, mask, and prep gloves were donned. The underdrape was placed under the patient's arm. The site was prepped with chlorhexidine, and tourniquet was loosely applied. Prep gloves were discarded, and hands were sanitized. The sterile kit was opened with additional supplies dropped in. Sterile gown and gloves were donned, and the patient was draped. The sterile kit was assembled with needle, introducer, needless connector, and catheter lumen flushed with sterile normal saline. The marked site of insertion was anesthetized with 1% lidocaine from the kit. Patient tolerated well. The right basilic vein was then accessed using ultrasound guidance and guidewire was inserted to safety paulette. The tourniquet was released. The access needle was removed while securing the guidewire in place. The site was again anesthetized with 1% lidocaine, prior to insertion of introducer sheath and dilator. Patient tolerated the insertion well. The catheter was trimmed to a length of 45 cm. Using 3C guidance, the catheter was then inserted through the introducer sheath, slowly. There was no resistance on insertion. The catheter followed the expected course of the vessel using 3CG tracking. The introducer sheath was retracted and peeled away, incrementally, while keeping the catheter secured. Maximal p-wave, without deflection, confirming placement in the cavoatrial junction, was obtained at an insertion length of 45 cm, leaving 0 cm external. The stylet was removed. A flushed needleless connector was attached to the lumen. Aspiration of the lumen was performed to remove any air and confirm blood return. Blood return was verified and the lumen was flushed with 10 ml of sterile normal saline in a pulsatile fashion. The lumen was clamped with the last pulsed flush. Total sterile flushes used for the insertion was 5 10 ml syringes, 1 from the kit. Finally, the insertion site was cleaned with chlorhexidine, and the catheter was secured using a StatLock. The site was covered with a Tegaderm CHG Dressing and disinfecting caps were applied. Baseline arm circumference was obtained at the insertion site and measured 30 cm. The patient was provided with a patient education handout on PICC line care of infection prevention, heavy lifting restriction, maintaining mobility, and watching for any signs of infection. The patient is aware that the PICC line is ready for use.
== END | disposition home or self-care (01) ==
PROVIDERS: PCP Family Medicine; Referring Provider Internal Medicine Hematology & Oncology; Visit Provider Internal Medicine Hematology & Oncology
DX: C83.38 Diffuse large B-cell lymphoma, lymph nodes of multiple sites (principal)
CPT/HCPCS: 36569

== ENCOUNTER 2023-10-04 09:01 | Inpatient (IN) | payer MEDICARE, SELFPAY ==
[2023-10-04] VITALS (13 sets, daily range): BP systolic 122–189; BP diastolic 76–106; PULSE 65–78; RESP 16–24; TEMP 36.2–36.6; O2SAT 92–99; BMI 27.3; BMI 26.9
--- NOTE | 2023-10-04 09:15 | EKG12_ITS ---
Test Reason : Blood Pressure : / mmHG Vent. Rate : 071 BPM Atrial Rate : 071 BPM P-R Int : 184 ms QRS Dur : 090 ms QT Int : 390 ms P-R-T Axes : 042 -27 011 degrees QTc Int : 423 ms Sinus rhythm with sinus arrhythmia with occasional Premature ventricular complexes Minimal voltage criteria for LVH, may be normal variant ( R in aVL ) Nonspecific T wave abnormality Abnormal ECG Confirmed by Joey Cerrato ([id number]), art editor CADEN HOLCOMB ([id number]) on 10/05/2023 2:06:33 PM Referred By: Confirmed By:Joey Cerrato
--- NOTE | 2023-10-04 09:15 | CT_ITS ---
STUDY: CT ABDOMEN AND PELVIS WITH CONTRAST REASON FOR EXAM: Male, 88 years old. LLQ pain. Patient has a history of leukemia. Recent chemotherapy. RADIATION DOSAGE (If Supplied By Facility): CTDIvol = ( 14.89 ) mGy, DLP = ( 1057.14 ) mGycm TECHNIQUE: Transaxial images were obtained from the dome of the diaphragm to the symphysis pubis without oral contrast. IV 100mL Isovue-300 was administered. Sagittal and coronal images were reconstructed. Individualized dose optimization techniques were used for this CT. COMPARISON: None. FINDINGS: There are increased linear markings at the lung bases suggestive of scarring coronary artery calcification. Normal liver. Normal gallbladder and extrahepatic biliary system. There are multiple benign calcified granulomata of the spleen. Normal pancreas. Normal bilateral adrenal glands. The right kidney is enlarged. Multiple cysts are seen. The largest cyst measures 6.4 cm x 6.1 cm. Nonobstructive calculi are seen in the right kidney. The largest is in the posterior midpole calyx and measures 6.7 mm. Multiple cysts are also seen in the left kidney. The largest cyst measures 6.1 cm x 7.8 cm. This is in the lower pole. Nonobstructive left intrarenal calculi. There is evidence of a moderate degree of left hydronephrosis due to 2, adjacent calculi measuring a 5.1 mm in the proximal portion of the left ureter . There is a small hiatal hernia. Normal small intestine. There are multiple colonic diverticula consistent with diverticulosis. The appendix is visualized and appears normal. There is diffuse atherosclerotic calcification of the abdominal aorta and its major visceral branches, without a demonstrated aneurysm. Normal inferior vena cava. Normal retroperitoneum. Normal urinary bladder. There is heterogeneous enlargement of the prostate. The prostate measures 6 cm x 7.2 cm. Calcifications are seen within it. There is indentation of the bladder base. There is enlargement of the seminal vesicles bilaterally. Calcified phleboliths are seen in the pelvis. There is a left-sided inguinal hernia containing adipose tissue. There are diffuse degenerative changes of the visualized lumbar spine. Minimal anterior listhesis of L4 on L5 due to facet joint osteoarthritis. CT/Abdomen/Pelvis W IV Cont ONLY IMPRESSION: Multiple bilateral renal cysts and nonobstructive intrarenal calculi. There are 2 adjacent 5.1 mm calculi in the proximal portion of the left ureter causing a moderate degree of left hydronephrosis. Heterogeneous enlargement of the prostate with indentation at the bladder base. Sigmoid diverticulosis. Electronically Signed: Jamari Livingston MD at 11:16 EDT ,
--- NOTE | 2023-10-04 09:22 | EX.ED.DYSGE1 ---
HPI History of Present Illness Chief Complaint: Nausea/Vomiting Narrative Narrative: Patient is a 88-year-old male with a past medical history of lymphoma currently undergoing chemotherapy last round was Wednesday and of this past week, CHF, DVT, pulmonary hypertension, DVT and PE on Xarelto who presented to the emergency department with chief complaint of not feeling well in general. Patient states that he has had nausea and dry heaves but denies any vomiting. He states that he is not feeling himself and generalized not feeling well prompting him to come here for further evaluation and management. Patient denies any recent sick contacts. [facility] Medical History Wears glasses Cancer Non-smoker DVT (deep venous thrombosis) Diastolic dysfunction without heart failure Pulmonary hypertension Syncope Ejection fraction < 50% Pulmonary embolism B-cell lymphoblastic leukemia Retraction of blood clot History of kidney stones Home Medications ?Medication ?Instructions ?Recorded ?Last Taken ?Type pantoprazole 40 mg tablet,delayed 40 mg PO DAILY 12/12/21 10/03/23 History release rivaroxaban 20 mg tablet (Xarelto) 20 mg PO DAILY #90 tabs 02/03/23 10/02/23 Rx sertraline 25 mg tablet 25 mg PO DAILY 03/24/23 10/03/23 History allopurinol 300 mg tablet 300 mg PO DAILY 10/04/23 10/03/23 History donepezil 10 mg tablet 10 mg PO DAILY 10/04/23 10/03/23 History prochlorperazine maleate 10 mg 10 mg PO Q6H PRN nausea and 10/04/23 10/03/23 History tablet vomiting Allergy/AdvReac Type Severity Reaction Status Date / Time No Known Allergies Allergy Verified 10/04/23 09:08 Family History Other Heart disease Surgical History Hx of knee surgery History of back surgery Social History Smoking Status: Never smoker alcohol intake: current alcohol intake frequency: holidays/special occasions only substance use type: does not use caffeine: Yes ROS ROS ED ROS Narrative Constitutional: Denies any fevers, chills, headaches, lightheadedness, dizziness Eyes: Denies change in vision double vision blurry vision Cardiovascular: Denies chest pain or palpitations Respiratory: Denies coughing wheezing shortness of breath Abdomen: Complains of nausea denies vomiting or diarrhea : Denies any painful urination, hematuria polyuria Neurological: Denies numbness, weakness, tingling Musculoskeletal: Denies any back pain Skin: Denies rashes or lesions EXAM Physical Exam Narrative Exam Narrative: General: Patient lying in bed rest comfortably did not appear to be in acute distress Head: Atraumatic, normocephalic Eyes: Pupils equal round reactive to light bilaterally, extraocular muscles intact bilaterally, no conjunctival injection noted Neck: Soft, supple, trachea midline Cardiovascular: Regular rate and rhythm no murmurs gallops rubs noted Respiratory: Clear to auscultation bilaterally Abdomen: Soft, nondistended, tenderness palpation in the left lower quadrant no rebound or guarding on exam Extremities: +5/5 strength noted in the bilateral upper and lower extremities, no pedal edema on exam Neurological: Patient following commands knew that he was at [facility] year is 2023 Skin: Warm, dry, intact Const Vital Signs: 10/04/23 09:05 10/04/23 11:02 10/04/23 12:49 Temperature 97.6 F L Temperature Source Temporal Pulse Rate 65 73 78 Respiratory Rate 20 H 18 24 H Blood Pressure 168/91 H 169/92 H 186/104 H Blood Pressure Mean 116 117 131 Pulse Ox 92 95 99 Oxygen Delivery Method Room Air Room Air Room Air 10/04/23 13:02 Temperature 97.8 F Temperature Source Pulse Rate 73 Respiratory Rate 23 H Blood Pressure 188/103 H Blood Pressure Mean 131 Pulse Ox 97 Oxygen Delivery Method MDM MDM MDM Narrative Medical decision making narrative: Patient is a 88-year-old male who presented to the emerged part with chief complaint of generalized not feeling well nausea. Patient will have a workup performed here on the differential diagnosis includes but not limited to diverticulitis, COVID-19, viral gastroenteritis secondary to another viral etiology. Once workup is obtained reviewed he will be reevaluated Patient CBC was significant leukocytosis of 14,000, hemoglobin stable 13.7, platelet count was noted be low at 67 he is chronically thrombocytopenic according to previous blood draws, potassium was 3.4, sodium normal 139, creatinine was elevated indicating acute kidney injury at 1.31, lipase normal at 44. Patient urinalysis showed 250 urine occult blood however negative for leukocyte esterase and nitrates. Will no white blood cells seen with no bacteria noted either. Patient's CT abdomen pelvis with IV contrast reviewed showed multiple bilateral renal cysts and nonobstructive intrarenal calculi. There are 2 adjacent 5.1 mm calculi in the proximal portion of the left ureter causing moderate degree of left hydronephrosis. Heterogeneous enlargement of the prostate and in attention of the bladder base sigmoid diverticulosis. I went in and reevaluated the patient and his daughter arrived at bedside and notified me at 1228 that at 5 PM yesterday evening he developed slurred speech which was abnormal for him. Reevaluated him and he was noted to have some dysarthria given NIH of 1 GCS 15. Patient was able to complete finger-nose test bilaterally without difficulty. She notes that he is still having some slurred speech and is slightly better. A stroke alert was paged at that point in time. Patient is not a tenecteplase candidate as he is outside of the 4 and half hour window and is on Xarelto. Patient's CT head and brain showed chronic involutional changes of the brain. Did discuss the case with telestroke physician Dr. Medeiros who is recommending given his low NIH scale to be admitted to the hospital with MRI and aspirin given. Aspirin was ordered. Did discuss the case with hospitalist who will accept patient for admission. Patient in for members were notified with all question concerns answered bedside. Critical care time 40 minutes Lab Data Labs: Laboratory Results - last 24 hr 10/04/23 10/04/23 09:28 10:03 WBC 14.7 H RBC 4.47 L Hgb 13.7 Hct 41.0 MCV 91.7 MCH 30.6 MCHC 33.4 RDW Std Deviation 43.5 RDW Coeff of Omer 13.1 Plt Count 67 L MPV 11.4 Neut % (Auto) Not Reportable Absolute Neuts (auto) 14.2 H Absolute Lymphs (auto) 0.44 L Total Counted 100 Neutrophils % (Manual) 96 H Band Neutrophils % 1 Lymphocytes % (Manual) 3 L Toxic Granulation 2+ Toxic Vacuolation 2+ Dohle Bodies 1+ Platelet Estimate MOD DEC Ovalocytes 1+ Sodium 139 Potassium 3.4 L Chloride 105 Carbon Dioxide 25.0 Anion Gap 9 BUN 19 H Creatinine 1.31 H Estim Creat Clear Calc 41.51 Est GFR (MDRD) Af Amer 66 Est GFR (MDRD) Non-Af 55 L BUN/Creatinine Ratio 14.5 Glucose 112 H Calcium 9.1 Total Bilirubin 2.00 H AST 35 ALT 26 Alkaline Phosphatase 113 Troponin I High Sens 22 Total Protein 7.2 Albumin 3.5 Globulin 3.7 Albumin/Globulin Ratio 0.9 Lipase 44 Urine Color Yellow Urine Clarity Sl. Cloudy Urine pH 7.0 Ur Specific [place] 1.010 Urine Protein 30 H Urine Glucose (UA) Normal Urine Ketones 5 H Urine Occult Blood 250 H Urine Nitrite Negative Urine Bilirubin Negative Urine Urobilinogen Normal Ur Leukocyte Esterase Negative Urine RBC 25-50 SEEN Urine WBC 0 SEEN Ur Squamous Epith Cells 0 SEEN Urine Bacteria 0 SEEN Urine Mucus 0 SEEN Radiography Diagnostic Testing: Clinical Impression(s) from Imaging Studies Abdomen/Pelvis CT 10/04/23 09:15 IMPRESSION: Multiple bilateral renal cysts and nonobstructive intrarenal calculi. There are 2 adjacent 5.1 mm calculi in the proximal portion of the left ureter causing a moderate degree of left hydronephrosis. Heterogeneous enlargement of the prostate with indentation at the bladder base. Sigmoid diverticulosis. Electronically Signed: Jamari Livingston MD at 11:16 EDT , Brain CT 10/04/23 12:27 IMPRESSION: Chronic involutional changes of the brain. N.B. : The above Results were Read Back by Jamari Livingston MD to Dayron Polanco DO, and understanding confirmed on 10/04/2023 12:45:12 (ET). Electronically Signed: Jamari Livingston MD at 12:46 EDT , ADDENDUM: 10/04/23 1253 IMPRESSION: Chronic involutional changes of the brain. N.B. : The above Results were Read Back by Jamari Livingston MD to Dayron Polanco DO, and understanding confirmed on 10/04/2023 12:45:12 (ET). Electronically Signed: Jamari Livingston MD at 12:46 EDT , Head/Neck CTA 10/04/23 12:27 IMPRESSION: Minimal plaque formation at the origin of the right and left internal carotid arteries. N.B. : The above Results were Read Back by Jamari Livingston MD to Dayron Polanco DO, and understanding confirmed on 10/04/2023 12:53:50 (ET). Electronically Signed: Jamari Livingston MD at 12:55 EDT , ADDENDUM: 10/04/23 1302 IMPRESSION: Minimal plaque formation at the origin of the right and left internal carotid arteries. N.B. : The above Results were Read Back by Jamari Livingston MD to Dayron Polanco DO, and understanding confirmed on 10/04/2023 12:53:50 (ET). Electronically Signed: Jamari Livingston MD at 12:55 EDT , Discharge Plan Disposition Disposition: Acute Care Hospital [facility] Discharge Date/Time: 10/04/23 13:41
[2023-10-04] MEDS: Ondansetron 4 MG/2 ML Vial IV (09:26)
[2023-10-04] MEDS: 0.9% Normal Saline (1000mL) 1,000 ML 999 ML IV (09:27)
--- NOTE | 2023-10-04 09:30 | ED.RN ---
pt reports blood in urine with known kidney stone but no pain.
[2023-10-04 09:37] LABS: Hemoglobin 13.7 g/dL (13.0-16.5); Mean Corp Hgb Conc 33.4 g/dL (32-36); Mean Corpuscular Hgb 30.6 pg (27.0-32.0); Mean Corpuscular Volume 91.7 fL (80-94); Mean Platelet Vol. 11.4 fl (6.2-12.0); POSITIVE COUNT YES; POSITIVE DIFFERENTIAL YES; POSITIVE MORPHOLOGY YES; Platelet Count 67 K/mm3 (150-450); RBC Distribution Width CV 13.1 % (11.6-14.6); RBC Distribution Width SD 43.5 fl (35.1-43.9); Red Blood Count 4.47 M/mm3 (4.6-6.2); White Blood Count 14.7 K/mm3 (4.4-11.0)
[2023-10-04 09:44] LABS: Differential Indicated MANUAL DIFF
[2023-10-04 09:58] LABS: ALB/GLOB Ratio 0.9 RATIO (0.9-2.4); AST(SGOT) 35 U/L (15-37); Alanine Aminotransfer ALT/SGPT 26 U/L (16-61); Albumin, Serum 3.5 g/dL (3.2-5.0); Alkaline Phosphatase 113 U/L (45-117); Anion Gap 9 (5-15); BUN 19 mg/dL (7-18); BUN/Creat Ratio 14.5 RATIO (10-20); Calcium,Total 9.1 mg/dL (8.5-10.1); Chloride 105 mmol/L (98-107); Creatinine, Serum 1.31 mg/dL (0.70-1.30); EST Glomerular Filtration Rate 55 mL/min (>60); Est Glom Filt Rate - Afr Amer 66 mL/min (>60); Estimated Creatinine Clearance 41.51 ml/min; Globulin 3.7 g/dL (2.2-4.2); Glucose 112 mg/dL (74-106); Lipase 44 U/L (13-75); Potassium 3.4 mmol/L (3.5-5.1); Protein, Total 7.2 g/dL (6.4-8.2); Sodium Level 139 mmol/L (136-145); Troponin-I HS 22 pg/mL (3.0-78.0)
[2023-10-04 10:52] LABS: Lymphocyte 3 % (19-41); Neutrophil-Band 1 % (0-5); Neutrophil-Segmented 96 % (47-70); Total Cells Counted 100 (MANUAL DIFF)
[2023-10-04 10:53] LABS: Absolute Lymphocyte Count 0.44 X10^3/uL (0.83-4.51); Absolute Neutrophil Count 14.2 X10^3/uL (2.0-7.7)
[2023-10-04 10:54] LABS: Dohle Bodies 1+; Platelet Estimate MOD DEC (ADEQ); Toxic Granulation 2+; Vacuolated Cells 2+
[2023-10-04 10:55] LABS: Ovalocyte 1+
[2023-10-04 11:06] LABS: Bacteria 0 SEEN /hpf (None Seen); Mucous, Urine 0 SEEN /hpf (<or=2+); Squamous Epithelial Cells - UA 0 SEEN /hpf (0-5); White Blood Cells 0 SEEN /hpf (0-5)
[2023-10-04 11:14] LABS: Color, Urine Yellow (Yellow); Glucose, Dipstick Normal (Normal); Ketone-Dipstick 5 mg/dl (Negative); Leukocyte Esterase-Dipstick Negative /ul (Negative); Nitrite-Dipstick Negative (Negative); Occult Blood-Urine 250 /ul (Negative); Protein-Dipstick 30 mg/dl (Negative); Urine Bilirubin Dipstick Negative (Negative); Urine Clarity Sl. Cloudy (Clear); Urine Urobilinogen Normal (Normal)
[2023-10-04 11:25] LABS: Red Blood Cells-Urine 25-50 SEEN /hpf (0-5)
--- NOTE | 2023-10-04 12:27 | CT_ITS ---
STUDY: CTA HEAD AND NECK WITH CONTRAST REASON FOR EXAM: Male, 88 years old. Slurred speech RADIATION DOSAGE (If Supplied By Facility): CTDIvol = ( 19.62 ) mGy, DLP = ( 766.34 ) mGycm TECHNIQUE: CT angiography was performed with a multi-detector CT scanner. Data acquisition was obtained from the skull base through the vertex following intravenous administration of IV 100mL Isovue-370. MIP images were reconstructed from the axial data set. Post-processing of the angiographic images was performed, with multiplanar reformation and 3D reconstruction. Individualized dose optimization techniques were used for this CT. COMPARISON: No relevant priors. FINDINGS: Normal bilateral petrous carotid arteries. Normal right cavernous carotid artery with a normal supraclinoid bifurcation. There is calcified plaque formation of the left cavernous carotid artery, without a cross-sectional luminal stenosis. Normal right A1 segments of the anterior cerebral artery. Normal left A1 segments of the anterior cerebral artery. Normal intact anterior communicating artery (ACOM). Normal bilateral A2 segments of the anterior cerebral arteries. Normal right M1 and M2 segments of the middle cerebral arteries, with a normal M1 bifurcation. Normal left M1 and M2 segments of the middle cerebral arteries, with a normal M1 bifurcation. There is a persistent origin of the right posterior cerebral artery with absence of the posterior communicating artery (PCOM). Normal left posterior communicating artery (PCOM). Normal bilateral vertebral arteries. Normal basilar artery with a normal basilar bifurcation. The visualized bilateral superior cerebellar (SCA) arteries are normal. Normal bilateral P1, P2 and visualized P3 segments of the posterior cerebral arteries. There is no demonstrated aneurysm of the [place]. AORTIC ARCH: There is mild degree of atherosclerotic calcific plaque formation of the aortic arch and great vessels arising from the aortic arch, without a hemodynamically significant stenosis. There is a normal origin of the brachiocephalic, left common carotid, and left subclavian arteries. RIGHT CAROTID ARTERIES: Normal right common carotid artery (CCA). Normal right common carotid bulb. There is minimal atherosclerotic plaque formation of the origin of the right internal carotid artery with less than 50% cross sectional diameter stenosis. Normal visualized cervical portion of the right internal carotid artery. Normal origin of the right external carotid artery (ECA). LEFT CAROTID ARTERIES: Normal left common carotid artery (CCA). Normal left common carotid bulb. There is mild atherosclerotic plaque formation of the origin of the left internal carotid artery with less than 50% cross sectional diameter stenosis. Normal visualized cervical portion of the left internal carotid artery. Normal origin of the left external carotid artery (ECA). VERTEBRAL ARTERIES: Normal bilateral vertebral arteries. CT/STROKE CTA Head AND Neck W/Con IMPRESSION: Minimal plaque formation at the origin of the right and left internal carotid arteries. N.B. : The above Results were Read Back by Jamari Livingston MD to Dayron Polanco DO, and understanding confirmed on 10/04/2023 12:53:50 (ET). Electronically Signed: Jamari Livingston MD at 12:55 EDT ,
--- NOTE | 2023-10-04 12:27 | CT_ITS ---
STUDY: CT HEAD STROKE PROTOCOL W/O CONTRAST INJECTION REASON FOR EXAM: Male, 88 years old. Slurred speech RADIATION DOSAGE (If Supplied By Facility): CTDIvol = ( 44.99 ) mGy, DLP = ( 863.6 ) mGycm TECHNIQUE: Transaxial CT imaging of the brain was performed without administration of intravenous contrast material. Individualized dose optimization techniques were used for this CT. COMPARISON: Comparison is made with prior study November 28, 2022. FINDINGS: Normal soft tissue structures. Normal calvarium. There is mild cerebral atrophy with widening of the extra-axial spaces and ventricular dilatation. There are areas of decreased attenuation within the white matter tracts of the supratentorial brain, consistent with microvascular disease changes. Normal basal ganglia and thalami. Normal brainstem. Normal cerebellum. There is no intracranial hemorrhage. There are no findings of an acute ischemic infarction. Contrast is seen within the intracerebral vasculature due to the IV contrast given for the CT scan of the abdomen and pelvis. Normal visualized paranasal sinuses. ASPECT score: 10 CT/STROKE Brain/Head without Cont IMPRESSION: Chronic involutional changes of the brain. N.B. : The above Results were Read Back by Jamari Livingston MD to Dayron Polanco DO, and understanding confirmed on 10/04/2023 12:45:12 (ET). Electronically Signed: Jamari Livingston MD at 12:46 EDT ,
[2023-10-04] MEDS: Aspirin 325 MG Tablet PO (13:06)
--- NOTE | 2023-10-04 13:22 | ECHOD_ITS ---
Version 2 Reason For Study: TIA/STROKE Procedure This was a 2D Doppler, Color Flow transthoracic echocardiogram. Exam performed portable in patient room. Left Ventricle Normal LV size. Left ventricular systolic function is normal. Stage 1 diastolic dysfunction. The left ventricular ejection fraction is 60 %. No regional wall motion abnormalities noted. Right Ventricle Normal RV size. cannot exclude right ventricular noncompaction. Normal systolic function. Atria Normal left atrium. Normal right atrium. Bubble contrast study negative for right to left interatrial shunt. Mitral Valve Normal mitral valve. Tricuspid Valve Normal tricuspid valve. Mild (1+) tricuspid valve insufficiency. Pulmonary artery systolic pressure is 44 mmHg. Aortic Valve Normal aortic valve. Pulmonic Valve Normal pulmonic valve. Great Vessels Mildly dilated aortic root. The pulmonary artery is normal size. Normal inferior vena cava. Pericardium/Pleural No pericardial effusion. Medication Performed a rapid injection of agitated mix of 9 cc saline and 1cc air to assess for atrial septal defect. MMode/2D Measurements & Calculations LVIDd: 4.7 cm IVSd: 1.3 cm LVOT diam: 2.1 cm LVIDs: 2.4 cm LVPWd: 1.2 cm RVDd: 4.6 cm FS: 48.2 % LVOT area: 3.4 cm2 Ao root diam: 4.1 cm LAV(MOD-bp): 65.0 ml LVAd ap4: 29.1 cm2 LAV(MOD-bp) Indexed: 31.2 ml/m2 LVLd ap4: 8.9 cm LAV(MOD-sp2): 89.5 ml EDV(MOD-sp4): 81.7 ml LAV(MOD-sp4): 45.5 ml EDV(sp4-el): 81.3 ml LVAs ap4: 16.6 cm2 LVLs ap4: 7.2 cm ESV(MOD-sp4): 32.8 ml ESV(sp4-el): 32.4 ml EF(MOD-sp4): 59.8 % EF(sp4-el): 60.2 % LVAd ap2: 30.2 cm2 SV(MOD-sp4): 48.9 ml SV(MOD-sp2): 49.0 ml LVLd ap2: 8.9 cm EDV(MOD-sp2): 86.6 ml EDV(sp2-el): 87.1 ml LVAs ap2: 18.4 cm2 LVLs ap2: 8.1 cm ESV(MOD-sp2): 37.7 ml ESV(sp2-el): 35.6 ml EF(MOD-sp2): 56.5 % SV(sp4-el): 48.9 ml LA dimension(2D): 3.8 cm LA A4 area: 17.8 cm2 RA A4 area: 17.2 cm2 TAPSE: 1.9 cm Time Measurements MV dec time: 0.37 sec Doppler Measurements & Calculations MV E max keo: 42.9 cm/sec Lat Peak E' Keo: 5.1 cm/sec Med Peak E' Keo: 4.9 cm/sec MV A max keo: 74.3 cm/sec E/E' lat: 8.3 E/E' med: 8.8 MV E/A: 0.58 Ao V2 max: 115.2 cm/sec LV V1 max: 86.9 cm/sec MV dec slope: 114.7 cm/sec2 Ao max P.3 mmHg LV V1 max P.0 mmHg Ao V2 mean: 82.6 cm/sec LV V1 mean P.0 mmHg Ao mean P.1 mmHg LV V1 mean: 68.0 cm/sec Ao V2 VTI: 27.0 cm LV V1 VTI: 18.4 cm AV (velocity ratio): 0.68 ESTEBAN(I,D): 2.3 cm2 ESTEBAN(V,D): 2.6 cm2 SV(LVOT): 62.6 ml PA V2 max: 67.3 cm/sec TR max keo: 319.9 cm/sec PA max PG (full): 0.93 mmHg TR max P.9 mmHg ECHO/Echo Complete Interpretation Summary Normal LV size. Left ventricular systolic function is normal. cannot exclude right ventricular noncompaction. Bubble contrast study negative for right to left interatrial shunt. Stage 1 diastolic dysfunction. The left ventricular ejection fraction is 60 %. Ordering Physician: Danish Genao Performed By: Kristina Ray RDCS
--- NOTE | 2023-10-04 13:24 | HP.PCM.HOS_ITS ---
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 Patient has dementia history was therefore limited. Patient's daughter who does not live with the patient but presented to the emergency department given the history. Patient is also reported to have developed nausea vomiting and diarrhea following his chemo. CTA of the head obtained was negative for large vessel occlusion. Decision was made to admit patient to a monitored bed for possible stroke workup [facility] Medical History Wears glasses Cancer Non-smoker DVT (deep venous thrombosis) Diastolic dysfunction without heart failure Pulmonary hypertension Syncope Ejection fraction < 50% Pulmonary embolism B-cell lymphoblastic leukemia Retraction of blood clot History of kidney stones Home Medications ?Medication ?Instructions ?Recorded ?Last Taken ?Type pantoprazole 40 mg tablet,delayed 40 mg PO DAILY 12/12/21 Unknown History release rivaroxaban 20 mg tablet (Xarelto) 20 mg PO DAILY #90 tabs 02/03/23 Unknown Rx sertraline 25 mg tablet 25 mg PO DAILY 03/24/23 Unknown History allopurinol 300 mg tablet mg 10/04/23 Unknown History donepezil 10 mg tablet mg 10/04/23 Unknown History prochlorperazine maleate 10 mg mg 10/04/23 Unknown History tablet Allergy/AdvReac Type Severity Reaction Status Date / Time No Known Allergies Allergy Verified 10/04/23 09:08 Family History Other Heart disease Surgical History Hx of knee surgery History of back surgery Social History Smoking Status: Never smoker alcohol intake: current alcohol intake frequency: holidays/special occasions only substance use type: does not use caffeine: Yes ROS ROS Narrative GENERAL: denies fever, chills, night sweats, weight loss, anorexia HEENT: denies headache, sinus congestion, or drainage, dysphagia RESPIRATORY: denies cough, sputum production, shortness of breath, CARDIAC: denies chest pain, palpitations, orthopnea, PND GASTROINTESTINAL: Nausea vomiting and diarrhea GENITOURINARY: denies dysuria, urgency, frequency, heamaturia EXTREMITY: denies swelling MUSCULOSKELETAL: Right hip pain NEUROLOGIC: Slurred speech HEMATOLOGIC: denies easy bruising and/or hemorrhage INTEGUMENT: denies rashes PSYCHIATRIC: denies suicidal or homicidal ideation Vital Signs Vital Signs Vital Signs: 10/04/23 09:05 10/04/23 11:02 10/04/23 12:49 Temperature 97.6 F L Temperature Source Temporal Pulse Rate 65 73 78 Respiratory Rate 20 H 18 24 H Blood Pressure 168/91 H 169/92 H 186/104 H Blood Pressure Mean 116 117 131 Pulse Ox 92 95 99 Oxygen Delivery Method Room Air Room Air Room Air 10/04/23 13:02 Temperature 97.8 F Temperature Source Pulse Rate 73 Respiratory Rate 23 H Blood Pressure 188/103 H Blood Pressure Mean 131 Pulse Ox 97 Oxygen Delivery Method Weight Weight: 88.9 kg Body Mass Index (BMI) 27.3 Physical Exam Narrative GENERAL: cooperative HEENT: Atraumatic; normocephalic EYES; Anicteric, Normal Conjunctiva NECK; supple, normal thyroid, RESPIRATORY: Diminished to auscultation CARDIOVASCULAR: Regular S1 S2, GI: soft, normoactive bowel sounds, : No Renal angle tenderness; EXTREMITIES: No edema, no clubbing, MUSCULOSKELETAL: Discoloration on the right hip NEURO: Awake; no lateralizing signs. SKIN: No Rash PSYCH; Flat affect Results Lab / Micro Data 10/04/23 09:28 10/04/23 09:28 Labs: Laboratory Results - last 24 hr 10/04/23 09:28: WBC 14.7 H, RBC 4.47 L, Hgb 13.7, Hct 41.0, MCV 91.7, MCH 30.6, MCHC 33.4, RDW Std Deviation 43.5, RDW Coeff of Omer 13.1, Plt Count 67 L, MPV 11.4, Neut % (Auto) Not Reportable, Absolute Neuts (auto) 14.2 H, Absolute Lymphs (auto) 0.44 L, Total Counted 100, Neutrophils % (Manual) 96 H, Band Neutrophils % 1, Lymphocytes % (Manual) 3 L, Toxic Granulation 2+, Toxic Vacuolation 2+, Dohle Bodies 1+, Platelet Estimate MOD DEC, Ovalocytes 1+, Sodium 139, Potassium 3.4 L, Chloride 105, Carbon Dioxide 25.0, Anion Gap 9, BUN 19 H, Creatinine 1.31 H, Estim Creat Clear Calc 41.51, Est GFR (MDRD) Af Amer 66, Est GFR (MDRD) Non-Af 55 L, BUN/Creatinine Ratio 14.5, Glucose 112 H, Calcium 9.1, Total Bilirubin 2.00 H, AST 35, ALT 26, Alkaline Phosphatase 113, Troponin I High Sens 22, Total Protein 7.2, Albumin 3.5, Globulin 3.7, Albumin/Globulin Ratio 0.9, Lipase 44 10/04/23 10:03: Urine Color Yellow, Urine Clarity Sl. Cloudy, Urine pH 7.0, Ur Specific [place] 1.010, Urine Protein 30 H, Urine Glucose (UA) Normal, Urine Ketones 5 H, Urine Occult Blood 250 H, Urine Nitrite Negative, Urine Bilirubin Negative, Urine Urobilinogen Normal, Ur Leukocyte Esterase Negative, Urine RBC 25-50 SEEN, Urine WBC 0 SEEN, Ur Squamous Epith Cells 0 SEEN, Urine Bacteria 0 SEEN, Urine Mucus 0 SEEN Micro: Microbiology 10/04/23 09:30 Mucosa - Nose SARS-CoV-2, Influenza & RSV (PCR) - Final Imaging Radiology Impression Abdomen/Pelvis CT 10/04/23 09:15 IMPRESSION: Multiple bilateral renal cysts and nonobstructive intrarenal calculi. There are 2 adjacent 5.1 mm calculi in the proximal portion of the left ureter causing a moderate degree of left hydronephrosis. Heterogeneous enlargement of the prostate with indentation at the bladder base. Sigmoid diverticulosis. Electronically Signed: Jamari Livingston MD at 11:16 EDT , Brain CT 10/04/23 12:27 IMPRESSION: Chronic involutional changes of the brain. N.B. : The above Results were Read Back by Jamari Livingston MD to Dayron Polanco DO, and understanding confirmed on 10/04/2023 12:45:12 (ET). Electronically Signed: Jamari Livingston MD at 12:46 EDT , ADDENDUM: 10/04/23 1253 IMPRESSION: Chronic involutional changes of the brain. N.B. : The above Results were Read Back by Jamari Livingston MD to Dayron Polanco DO, and understanding confirmed on 10/04/2023 12:45:12 (ET). Electronically Signed: Jamari Livingston MD at 12:46 EDT , Head/Neck CTA 10/04/23 12:27 IMPRESSION: Minimal plaque formation at the origin of the right and left internal carotid arteries. N.B. : The above Results were Read Back by Jamari Livingston MD to Dayron Polanco DO, and understanding confirmed on 10/04/2023 12:53:50 (ET). Electronically Signed: Jamari Livingston MD at 12:55 EDT , ADDENDUM: 10/04/23 1302 IMPRESSION: Minimal plaque formation at the origin of the right and left internal carotid arteries. N.B. : The above Results were Read Back by Jamari Livingston MD to Dayron Polanco DO, and understanding confirmed on 10/04/2023 12:53:50 (ET). Electronically Signed: Jamari Livingston MD at 12:55 EDT , Assessment & Plan Assessment/Plan (1) Dysarthria: PLAN: Plan Patient is an 88-year-old gentleman presenting with dysarthria 1. Dysarthria ? Patient admitted to a monitored bed currently being worked up for possible CVA. Patient was placed on every 4 neurochecks, aspirin as well as atorvastatin. Initial head CTA obtained was negative for large vessel occlusion and MRI has been ordered for subsequent evaluation (pending clearance from radiology patient has a loop recorder). Also ordered 2D echo and consult placed to teleneuro 2. B-cell lymphoblastic leukemia ? Patient is on chemo follows up at the Coumadin clinic 3. History of pulmonary embolism ? Patient is on rivaroxaban 4. Nephrolithiasis ? CT of the abdomen and pelvis obtained did show multiple bilateral renal cysts and nonobstructive intrarenal calculi. There are 2 adjacent 5.1 mm calculi in the proximal portion of the left u reter causing a moderate degree of left hydronephrosis. Heterogeneous enlargement of the prostate with indentation at the bladder base.. Plan for patient to follow-up as outpatient for urology referral 5. Paroxysmal A-fib rate controlled 6. Recurrent syncopal episode ? Patient has a loop recorder 5. BPH ? Patient is on doxazosin plan is to resume once home meds have been reconciled 8. GERD ? On PPI 9. Dementia ? Patient is on donepezil 10. Depression with anxiety ? Patient is on SSRI 11. DVT prophylaxis ? Patient already on systemic anticoagulation with rivaroxaban Time spent in the patient's overall evaluation,decision-making process, review of diagnostic data, adjustment of management, discussion with other providers, nursing nursing and ancillary staff involved in patient's care documentation, 75 minutes Advance planning; did discuss with the patient and family regarding advanced directives as well as CODE STATUS. Did explain the various scenarios involved ( FULL CODE, DNR CCA, DNR CCA with no intubation, and DNR CC and what each meant) family decision is for patient to remain full code with CPR and intubation if needed. Order was placed. Time spent on discussion 16 minutes. Charges/Coding Visit Charges Inpatient E&M: 85244 Init Hosp L3 Procedures Hospitalists Procedures: [id number] Advncd Care Plan 30 Min
[2023-10-04 14:14] LABS: Hemoglobin A1c 5.3 % (3.8-5.6)
[2023-10-04 14:17] LABS: AST(SGOT) 34 U/L (15-37); Alanine Aminotransfer ALT/SGPT 26 U/L (16-61); Albumin, Serum 3.5 g/dL (3.2-5.0); Alkaline Phosphatase 112 U/L (45-117); Bilirubin, Direct 0.41 mg/dL (0.00-0.30); Globulin 3.6 g/dL (2.2-4.2); Protein, Total 7.1 g/dL (6.4-8.2); Thyroid Stim Hormone (TSH) 1.49 uIU/mL (0.358-3.74)
[2023-10-04] MEDS: 0.9% Normal Saline (1000mL) 1,000 ML 125 ML IV ×2 (14:18→21:58)
[2023-10-04] MEDS: Ensure Plus High Protein 120 ML LIQUID PO (18:17)
[2023-10-04] MEDS: Atorvastatin Calcium 40 MG Tablet PO (21:57)
[2023-10-05] VITALS (8 sets, daily range): BP systolic 118–158; BP diastolic 70–80; PULSE 58–70; RESP 16–18; TEMP 36.2–36.6; O2SAT 95–98; BMI 26.9; BMI 26.7
--- NOTE | 2023-10-05 05:55 | CT_ITS ---
INDICATION: CVA EXAMINATION: CT BRAIN - CT Head or Brain W/O Contrast Injection TECHNIQUE: Multiple axial images were obtained of the head without intravenous contrast. A radiation dose optimization technique was used for this scan. IV Contrast dosage and agent: None. RADIATION DOSAGE (If Supplied By Facility): CTDIvol = ( 44.99 ) mGy, DLP = ( 950.78 ) mGycm COMPARISON: Prior study dated: 10/04/2023 FINDINGS: BRAIN PARENCHYMA: No intra- or extra-axial hemorrhage. No evidence of acute infarct. No intracranial mass or mass effect. There is preservation of the campbell/white matter interface. Posterior fossa structures are unremarkable. Patchy periventricular and deep white matter hypoattenuation is consistent with mild small vessel ischemic change. CSF SPACES: Proportional prominence of the ventricles and sulcal spaces is consistent with mild cerebral volume loss. No hydrocephalus. Basal cisterns are patent. CALVARIUM, SKULL BASE, PARANASAL SINUSES AND MASTOID AIR CELLS: Small mucous retention cysts of the left maxillary sinus. The mastoid air cells and visualized paranasal sinuses are otherwise well aerated. The calvarium is intact. No discrete lytic or blastic abnormalities. ORBITS: Both globes, extraocular muscles, optic nerves and retrobulbar fat appear unremarkable. CT/Brain/Head without Contrast IMPRESSION: No acute intracranial finding. Electronically Signed: Rolando Donato MD at 7:29 EDT ,
[2023-10-05 07:07] LABS: Absolute Lymphocyte Count 0.84 X10^3/uL (0.83-4.51); Absolute Neutrophil Count 13.1 X10^3/uL (2.0-7.7); Basophil# 0.02 X10^3/uL; Basophil% 0.1 % (0-1); Eosinophil# 0.02 X10^3/uL; Eosinophils% 0.1 % (0-5); Hematocrit 37.9 % (40-54); Hemoglobin 12.5 g/dL (13.0-16.5); Lymphocyte # 0.84 X10^3/ul (0.83-4.51); Lymphocyte % 5.8 % (19-41); Mean Corpuscular Hgb 30.6 pg (27.0-32.0); Mean Corpuscular Volume 92.7 fL (80-94); Mean Platelet Vol. 11.4 fl (6.2-12.0); Monocyte# 0.35 X10^3/uL; Monocyte% 2.4 % (0-10); NRBC Flagged by Analyzer 0 % (0-5); Neutrophil # 13.12 X10^3/uL (2.7-7.7); Neutrophil % 91.5 % (47-70); POSITIVE COUNT YES; POSITIVE MORPHOLOGY YES; Platelet Count 64 K/mm3 (150-450); RBC Distribution Width CV 13.2 % (11.6-14.6); RBC Distribution Width SD 44.6 fl (35.1-43.9); Red Blood Count 4.09 M/mm3 (4.6-6.2); White Blood Count 14.4 K/mm3 (4.4-11.0)
[2023-10-05 07:33] LABS: Anion Gap 5 (5-15); BUN 18 mg/dL (7-18); BUN/Creat Ratio 16.2 RATIO (10-20); Calcium,Total 8.2 mg/dL (8.5-10.1); Chloride 110 mmol/L (98-107); Cholesterol 102 mg/dL (200); Creatinine, Serum 1.11 mg/dL (0.70-1.30); EST Glomerular Filtration Rate 66 mL/min (>60); Est Glom Filt Rate - Afr Amer 80 mL/min (>60); Estimated Creatinine Clearance 48.99 ml/min; Glucose 93 mg/dL (74-106); High Density Lipoprotein 47 mg/dL; Magnesium 2.1 mg/dL (1.6-2.6); Potassium 3.6 mmol/L (3.5-5.1); Sodium Level 141 mmol/L (136-145); Triglycerides 79 mg/dL; Very Low Density Lipoprotein 16 mg/dL (5-40)
[2023-10-05 07:42] LABS: Differential Indicated SCAN CRITERIA MET
[2023-10-05] MEDS: Aspirin 81 MG TAB.CHEW PO (09:08)
[2023-10-05] MEDS: 0.9% Saline Lock 10 ML Syringe IV (09:09)
[2023-10-05] MEDS: Ensure Plus High Protein 120 ML LIQUID PO (10:09)
[2023-10-05] MEDS: Pantoprazole Sodium 40 MG Tablet PO (10:09)
[2023-10-05] MEDS: Allopurinol 300 MG Tablet PO (10:10)
[2023-10-05] MEDS: Donepezil HCl 10 MG Tablet PO (10:10)
[2023-10-05] MEDS: Sertraline 50 MG Tablet 25 MG PO (10:10)
--- NOTE | 2023-10-05 10:57 | WOUNDNOTE ---
wound photo: right hip
--- NOTE | 2023-10-05 13:10 | NEURO.CONS ---
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 History is limited as patient does not recall the event. Per chart review patient received chemo and following felt nauseas, vomited, had diarrhea and then lost consciousness. Apparently in the ED his speech did not sound normal and stroke evaluation was called. Per patient he was back to normal after event. Transient episode of LOC after chemo,vomiting,diarrhea could be vasovagal/orthostatic syncope. If there was some slurred speech likely could be toxicmetabolic in the setting of chemo. Already on statin, AP and AC. No need for further adjustment and meds and just continue to ensure CV risk factors are optimized. Cannot get MRI due to AICD but 2 CTs no obvious stroke. Diagnosis: vasovagal/orthostatic syncope Plan: - Cont his home AP, AC and statin - Cont CV risk factor optimization - No further recs, neurovasc to sign off I personally attended this patient and spent a total time of 30 minutes evaluating this patient including clinical assessment, review of chart, medical history imaging, and determining appropriate treatment and workup. 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 History is limited as patient does not recall the event. Per chart review patient received chemo and following felt nauseas, vomited, had diarrhea and then lost consciousness. Apparently in the ED his speech did not sound normal and stroke evaluation was called. Per patient he was back to normal after event. Transient episode of LOC after chemo,vomiting,diarrhea could be vasovagal/orthostatic syncope. If there was some slurred speech likely could be toxicmetabolic in the setting of chemo. Already on statin, AP and AC. No need for further adjustment and meds and just continue to ensure CV risk factors are optimized. [facility] Medical History Wears glasses Cancer Non-smoker DVT (deep venous thrombosis) Diastolic dysfunction without heart failure Pulmonary hypertension Syncope Ejection fraction < 50% Pulmonary embolism B-cell lymphoblastic leukemia Retraction of blood clot History of kidney stones Home Medications ?Medication ?Instructions ?Recorded ?Last Taken ?Type pantoprazole 40 mg tablet,delayed 40 mg PO DAILY 12/12/21 10/03/23 History release rivaroxaban 20 mg tablet (Xarelto) 20 mg PO DAILY #90 tabs 02/03/23 10/02/23 Rx sertraline 25 mg tablet 25 mg PO DAILY 03/24/23 10/03/23 History allopurinol 300 mg tablet 300 mg PO DAILY 10/04/23 10/03/23 History donepezil 10 mg tablet 10 mg PO DAILY 10/04/23 10/03/23 History prochlorperazine maleate 10 mg 10 mg PO Q6H PRN nausea and 10/04/23 10/03/23 History tablet vomiting Allergy/AdvReac Type Severity Reaction Status Date / Time No Known Allergies Allergy Verified 10/04/23 09:08 Family History Other Heart disease Surgical History Hx of knee surgery History of back surgery Social History Smoking Status: Never smoker alcohol intake: current alcohol intake frequency: holidays/special occasions only substance use type: does not use caffeine: Yes Vital Signs Vital Signs Vital Signs: 10/04/23 13:24 10/04/23 13:30 10/04/23 14:06 Temperature 97.2 F L Temperature Source Temporal Pulse Rate 71 73 66 Respiratory Rate 17 17 18 Respiratory Effort Respiratory Depth Respiratory Pattern Blood Pressure 189/106 H 179/101 H 175/97 H Blood Pressure Mean 133 127 123 Blood Pressure Source Monitor Blood Pressure Position Semi-Fowlers Blood Pressure Location Right Arm Pulse Ox 96 97 94 Oxygen Delivery Method Room Air Room Air Room Air 10/04/23 14:30 10/04/23 14:30 10/04/23 16:06 Temperature 97.9 F Temperature Source Temporal Pulse Rate 77 Respiratory Rate 18 Respiratory Effort Normal Non-Labored Respiratory Depth Normal Respiratory Pattern Normal Blood Pressure 179/98 H Blood Pressure Mean 125 Blood Pressure Source Monitor Blood Pressure Position Semi-Fowlers Blood Pressure Location Right Arm Pulse Ox 96 97 Oxygen Delivery Method Room Air Room Air Room Air 10/04/23 17:00 10/04/23 18:00 10/04/23 19:18 Temperature 97.9 F Temperature Source Temporal Pulse Rate 70 Respiratory Rate 18 Respiratory Effort Respiratory Depth Respiratory Pattern Blood Pressure 177/97 H Blood Pressure Mean 123 Blood Pressure Source Monitor Blood Pressure Position Semi-Fowlers Blood Pressure Location Right Arm Pulse Ox 95 98 98 Oxygen Delivery Method Room Air Room Air Room Air 10/04/23 21:58 10/04/23 22:00 10/05/23 02:00 Temperature 97.9 F 97.9 F Temperature Source Temporal Temporal Pulse Rate 65 58 L Respiratory Rate 16 16 Respiratory Effort Normal Non-Labored Respiratory Depth Normal Respiratory Pattern Normal Blood Pressure 122/76 H 125/74 H Blood Pressure Mean 91 91 Blood Pressure Source Monitor Monitor Blood Pressure Position Semi-Fowlers Semi-Fowlers Blood Pressure Location Left Arm Left Arm Pulse Ox 95 95 Oxygen Delivery Method Room Air Room Air Room Air 10/05/23 02:06 10/05/23 06:00 10/05/23 07:41 Temperature 97.9 F Temperature Source Temporal Pulse Rate 61 Respiratory Rate 18 Respiratory Effort Normal Non-Labored Respiratory Depth Normal Respiratory Pattern Normal Blood Pressure 128/78 H Blood Pressure Mean 94 Blood Pressure Source Monitor Blood Pressure Position Semi-Fowlers Blood Pressure Location Left Arm Pulse Ox 98 97 Oxygen Delivery Method Room Air Room Air 10/05/23 09:00 10/05/23 09:00 10/05/23 09:55 Temperature 97.1 F L Temperature Source Temporal Pulse Rate 62 62 Respiratory Rate 18 Respiratory Effort Normal Non-Labored Respiratory Depth Normal Respiratory Pattern Normal Blood Pressure 132/77 H Blood Pressure Mean 95 Blood Pressure Source Monitor Blood Pressure Position Sitting Blood Pressure Location Left Arm Pulse Ox 97 97 98 Oxygen Delivery Method Room Air Room Air Room Air 10/05/23 12:50 Temperature 97.8 F Temperature Source Oral Pulse Rate 59 L Respiratory Rate 16 Respiratory Effort Respiratory Depth Respiratory Pattern Blood Pressure 158/80 H Blood Pressure Mean 106 Blood Pressure Source Monitor Blood Pressure Position Semi-Fowlers Blood Pressure Location Left Arm Pulse Ox 98 Oxygen Delivery Method Room Air Weight Weight: 87.1 kg Body Mass Index (BMI) 26.7 NIHSS NIHSS Nursing Documentation NIHSS Nursing Documentation: NIH Stroke Scale Start: 10/04/23 13:08 Freq: Status: Discharge Protocol: Activity Type Activity Date Activity User E-sign Co-sign Detail Recorded Client Recorded Date Recorded By Document 10/04/23 13:29 KP [id number] 10/04/23 13:30 KP 10/04/23 13:29 NIH Stroke Scale [NIHSS] A score of 0 is normal or asymptomatic . Total possible score is 42. Inpatient: RN or Physician to activate a stroke alert for onset of new stroke symptoms or with NIHSS increase >/= 3 points. Following change in neurological status, NIHSS will be performed per physician order or more frequently PRN. -1a. Level of Consciousness Alert; keenly responsive -1b. LOC Questions Answers one question correctly. -1c. LOC Commands Performs both tasks correctly . -2. Best Gaze Normal -3. Visual No visual loss -4. Facial Palsy Minor paralysis (flattened nasolabial fold , asymmetry on smiling) -5a. Left Arm No drift; arm holds 90 (or 45 ) degrees for full 10 seconds -5b. Right Arm No drift; arm holds 90 (or 45 ) degrees for full 10 seconds -6a. Left Leg No drift; leg holds 30-degree position for full 5 seconds -6b. Right Leg No drift; leg holds 30-degree position for full 5 seconds -7. Limb Ataxia Absent -8. Sensory Normal; no sensory loss -9. Best Language Mild-to- moderate aphasia; -10. Dysarthria Normal -11. Extinction and Inattention No abnormality -Total 3 Query Text:A score of 0 is normal or asymptomatic. Total possible score is 42 . ED: Notify Physician for NIHSS increase by > / = 3 points. Inpatient: RN or Physician to activate a stroke alert for NIHSS increase of > / = 3 points. NIHSS: Ischemic Stroke/TIA Start: 10/04/23 13:57 Text: For PCU Patients: NIH and Neuro Check every 4 Status: Active hours, PRN and with change in RN caregiver. Freq: [id number] Protocol: Activity Type Activity Date Activity User E-sign Co-sign Detail Recorded Client Recorded Date Recorded By Document 10/05/23 12:50 MG Desktop 10/05/23 13:00 MG 10/05/23 12:50 -1a. Level of Consciousness Alert; keenly responsive -1b. LOC Questions Answers one question correctly. -1c. LOC Commands Performs both tasks correctly . -2. Best Gaze Normal -3. Visual No visual loss -4. Facial Palsy Minor paralysis (flattened nasolabial fold , asymmetry on smiling) -5a. Left Arm No drift; arm holds 90 (or 45 ) degrees for full 10 seconds -5b. Right Arm No drift; arm holds 90 (or 45 ) degrees for full 10 seconds -6a. Left Leg No drift; leg holds 30-degree position for full 5 seconds -6b. Right Leg No drift; leg holds 30-degree position for full 5 seconds -7. Limb Ataxia Absent -8. Sensory Normal; no sensory loss -9. Best Language No aphasia; normal -10. Dysarthria Normal -11. Extinction and Inattention No abnormality -Total 2 Query Text:A score of 0 is normal or asymptomatic. Total possible score is 42 . ED: Notify Physician for NIHSS increase by > / = 3 points. Inpatient: RN or Physician to activate a stroke alert for NIHSS increase of > / = 3 points. Coma Scale [Assess] -Eye Opening Spontaneous -Motor Obeys Commands -Verbal Oriented [Total] -Coma Scale Total 15 Physical Exam Narrative Mental Status: AAOX4 & following simple commands. Speech: Clear and fluent with good repetition, comprehension, & naming. No aphasia or dysarthria CN II: Visual karimi are full to confrontation. PERRL. CN III, IV, : EOMI, no gaze preference, no nystagmus, no ptosis CN V: Facial sensation is intact to light touch throughout. CN VII: right bells CN VII: Hearing is grossly normal to conversational speech. CN IX, X: Palate elevates symmetrically and no uvula deviation? CN XI: Head turning, and shoulder shrug are intact. CN XII: Tongue is midline with normal movements and no atrophy. Motor:?Able to sustain all limbs .?? Sensation: Normal to light touch bilaterally.? Coordination: Normal rapid alternating movements, FTN & HTS. No abn movements seen.?. Lab / Micro Data 10/05/23 06:26 10/05/23 06:26 Labs: Laboratory Results - last 24 hr 10/04/23 09:28: Hemoglobin A1c 5.3, Total Bilirubin 2.00 H, Direct Bilirubin 0.41 H, AST 34, ALT 26, Alkaline Phosphatase 112, Total Protein 7.1, Albumin 3.5, Globulin 3.6, TSH 1.49 10/05/23 06:26: WBC 14.4 H, RBC 4.09 L, Hgb 12.5 L, Hct 37.9 L, MCV 92.7, MCH 30.6, MCHC 33.0, RDW Std Deviation 44.6 H, RDW Coeff of Omer 13.2, Plt Count 64 L, MPV 11.4, Immature Gran % (Auto) 0.100, Neut % (Auto) 91.5 H, Lymph % (Auto) 5.8 L, [place] % (Auto) 2.4, Eos % (Auto) 0.1, Baso % (Auto) 0.1, Absolute Neuts (auto) 13.1 H, Absolute Lymphs (auto) 0.84, Nucleated RBC % 0, Sodium 141, Potassium 3.6, Chloride 110 H, Carbon Dioxide 26.0, Anion Gap 5, BUN 18, Creatinine 1.11, Estim Creat Clear Calc 48.99, Est GFR (MDRD) Af Amer 80, Est GFR (MDRD) Non-Af 66, BUN/Creatinine Ratio 16.2, Glucose 93, Calcium 8.2 L, Magnesium 2.1, Triglycerides 79, Cholesterol 102, LDL Cholesterol 39, VLDL Cholesterol 16, HDL Cholesterol 47 Micro: Microbiology 10/04/23 09:30 Mucosa - Nose SARS-CoV-2, Influenza & RSV (PCR) - Final Imaging Radiology Impression Echocardiogram 10/04/23 13:22 Interpretation Summary Normal LV size. Left ventricular systolic function is normal. cannot exclude right ventricular noncompaction. Bubble contrast study negative for right to left interatrial shunt. Stage 1 diastolic dysfunction. The left ventricular ejection fraction is 60 %. Ordering Physician: Danish Genao Performed By: Kristina Ray RDCS Brain CT 10/05/23 05:55 IMPRESSION: No acute intracranial finding. Electronically Signed: Rolando Donato MD at 7:29 EDT , Active Medications Active Medications Active Medications: Current Medications Generic Name Dose Route Start Last Admin Trade Name Freq PRN Reason Stop Dose Admin Acetaminophen 650 mg 10/04/23 13:57 Acetaminophen 325 Mg Tablet PO Q6H PRN PRN Pain 1-10 Or Fever>100.7 Albuterol Sulfate 2.5 mg 10/04/23 13:57 Albuterol 2.5 Mg/3 Ml Vial.Neb. INHALATION Q2H PRN PRN SOB &/OR WHEEZING Allopurinol 300 mg 10/05/23 10:00 10/05/23 10:10 Allopurinol 300 Mg Tablet PO 300 mg DAILY ZBIGNIEW Administration Aspirin 81 mg 10/05/23 08:00 10/05/23 09:08 Aspirin 81 Mg Tab.Chew PO 81 mg BREAKFAST ZBIGNIEW Administration Atorvastatin Calcium 40 mg 10/04/23 22:00 10/04/23 21:57 Atorvastatin Calcium 40 Mg Tablet PO 40 mg QHS ZBIGNIEW Administration Donepezil HCl 10 mg 10/05/23 10:00 10/05/23 10:10 Donepezil Hcl 10 Mg Tablet PO 10 mg DAILY ZBIGNIEW Administration Guaifenesin 20 ml 10/04/23 13:57 Guaifenesin 10 Ml Udc (200mg/10ml) PO Q4H PRN PRN COUGH Hydralazine HCl 5 mg 10/04/23 13:57 Hydralazine 20 Mg/Ml Vial IV 10/05/23 13:57 Q30M PRN maintain BP parameters with HR <60 Sodium Chloride 500 mls @ 15 mls/hr 10/04/23 14:02 IV PRN PRN Blood Transfusion Sodium Chloride 250 mls @ 15 mls/hr 10/04/23 14:02 IV .[id number] PRN Additional IVPB Infusion Sodium Chloride 250 mls @ 15 mls/hr 10/04/23 14:02 IV .[id number] PRN Saline Flush Melatonin 3 mg 10/04/23 13:57 Melatonin 3 Mg Tablet PO QHS PRN PRN INSOMNIA Nitroglycerin 0.4 mg 10/04/23 13:57 Nitroglycerin (Inpatient Use) 0.4 Mg Tab.Subl SL Q5M PRN CARDIAC/CHEST PAIN Ondansetron HCl 4 mg 10/04/23 13:57 Ondansetron 4 Mg/2 Ml Vial IV Q8H PRN PRN NAUSEA/VOMITING Pantoprazole Sodium 40 mg 10/05/23 10:00 10/05/23 10:09 Pantoprazole Sodium 40 Mg Tablet PO 40 mg DAILY ZBIGNIEW Administration Rivaroxaban 20 mg 10/05/23 17:00 Rivaroxaban 20 Mg Tablet PO DAILY@[facility] Senna/Docusate Sodium 2 tablet 10/04/23 13:57 Senna/Docusate Sodium 1 Tablet PO BID PRN PRN Constipation Sertraline HCl 25 mg 10/05/23 10:00 10/05/23 10:10 Sertraline 50 Mg Tablet PO 25 mg DAILY ZBIGNIEW Administration Sodium Chloride 10 - 40 ml 10/04/23 14:02 10/05/23 09:09 0.9% Saline Lock 10 Ml Syringe IV 20 ml UD PRN Administration SALINE FLUSH
--- NOTE | 2023-10-05 13:20 | CHAPLAIN ---
Type of Pastoral Visit _x__ Initial Visit ___ Follow-up Visit ___ On-call Visit ___ General Patient Visit ___ Spiritual Assessment ___ Family Conference ___ Bereavement ___ Rapid Response ___ Code Blue ___ Other (describe below) Pastoral Care Referral From _x__ Patient ___ Family ___ Nurse ___ Physician ___ Dance Costume Designer ___ Burn Nurse ___ Other (describe below) Sacrament/Intervention _x__ Active listening ___ Anointing ___ Protestant ___ Bereavement ___ Communion _x__ Bhargavi exploration ___ _x__ Life review _x__ Prayer ___ Reconciliation ___ Sacrament of Sick ___ Supportive presence ___ Wedding ___ Other (describe below) Pastoral Comments patient is doing well at this moment and is looking forward to leaving hospital today; pt is willing to talk and share about his life; pt gives some life review and how he assisted at his former zoroastrianism; pt has moved back to [place] after a long time away and is pleased with the community; pt is a member of the [employer];
--- NOTE | 2023-10-05 14:18 | CASEMGMT ---
SW did not complete a PHQ9 for patient as patient is only alert and oriented X2. Clara Huff [employer]CHOR
--- NOTE | 2023-10-05 14:50 | CASEMGMT ---
RN CM Face to Face with patient for initial transition planning/care coordination assessment. RN CM introduced self and role at [facility]. Patient sitting in chair, alert and oriented. Patient willing to participate in assessment and is able to answer all questions appropriately. Care providers, pharmacy, and demographics verified. Lace: 10 Strata: 3 PCP: [place] Specialists: Karen, oncologist; Preferred Pharmacy:[facility] Insurance: [employer] [facility] Prescription Benefit: yes Living Will/HPOA: yes, daughter Mary Arora LNOK: daughters, significant other Living Arrangements: Patient lives with significant other in a first floor condo with no steps to enter. Patient is independent at home. Transportation: significant other, Liz DME/HHC: Patient states he has shower chair at home. No previous HHC or SNF Patient wishes to discharge home, denies need for home health at this time. Patient states he has no further needs or concerns at this time. CM to follow for discharge planning needs that may arise. Disposition Plan: Patient to discharge home with family support and follow-up plans in place. Carolin WATERMAN, RN, CM
--- NOTE | 2023-10-05 15:12 | PN_ITS ---
Subjective Subjective Patient seen and examined. He had no complaints. He was admitted with slurred speech which has now resolved. Review of systems is otherwise negative. He is awaiting MRI. He has remained hemodynamically stable. Objective Data Objective Data Vital Signs: Vital Signs Temp Pulse Resp BP Pulse Ox O2 Del Method 97.8 F 59 L 16 158/80 H 98 Room Air 10/05/23 12:50 10/05/23 12:50 10/05/23 12:50 10/05/23 12:50 10/05/23 12:50 10/05/23 12:50 Oxygen Delivery Method Room Air Weight: 192 lb 0.362 oz Body Mass Index (BMI) 26.7 Intake & Output: Intake and Output for Last 24 Hours 10/03/23 10/04/23 10/05/23 23:59 23:59 23:59 Intake Total 2358.33 / 2358.33 1680 / 1680 Balance 2358.33 / 2358.33 1680 / 1680 Lab / Micro Data 10/05/23 06:26 10/05/23 06:26 Labs: Laboratory Results - last 24 hr 10/05/23 06:26: WBC 14.4 H, RBC 4.09 L, Hgb 12.5 L, Hct 37.9 L, MCV 92.7, MCH 30.6, MCHC 33.0, RDW Std Deviation 44.6 H, RDW Coeff of Omer 13.2, Plt Count 64 L , MPV 11.4, Immature Gran % (Auto) 0.100, Neut % (Auto) 91.5 H, Lymph % (Auto) 5.8 L, Gall[place] % (Auto) 2.4, Eos % (Auto) 0.1, Baso % (Auto) 0.1, Absolute Neuts (auto) 13.1 H, Absolute Lymphs (auto) 0.84, Nucleated RBC % 0, Sodium 141, Potassium 3.6, Chloride 110 H, Carbon Dioxide 26.0, Anion Gap 5, BUN 18, Creatinine 1.11, Estim Creat Clear Calc 48.99, Est GFR (MDRD) Af Amer 80, Est GFR (MDRD) Non-Af 66, BUN/Creatinine Ratio 16.2, Glucose 93, Calcium 8.2 L, Magnesium 2.1, Triglycerides 79, Cholesterol 102, LDL Cholesterol 39, VLDL Cholesterol 16, HDL Cholesterol 47 Micro: Microbiology 10/04/23 09:30 Mucosa - Nose SARS-CoV-2, Influenza & RSV (PCR) - Final Radiography Diagnostic Testing: Radiology Impression Echocardiogram 10/04/23 13:22 Interpretation Summary Normal LV size. Left ventricular systolic function is normal. cannot exclude right ventricular noncompaction. Bubble contrast study negative for right to left interatrial shunt. Stage 1 diastolic dysfunction. The left ventricular ejection fraction is 60 %. Ordering Physician: Danish Genao Performed By: Kristina Ray RDCS Brain CT 10/05/23 05:55 IMPRESSION: No acute intracranial finding. Electronically Signed: Rolando Donato MD at 7:29 EDT Reading Location ID and State: [facility] / [place] Tel , Service support , Physical Exam Const alert, oriented x3, no apparent distress and well nourished General Appearance: cooperative and well developed HEENT normocephalic, head/scalp atraumatic, moist oral mucous membranes and oropharynx normal Eyes PERRL and EOMs intact bilaterally Neck no lymphadenopathy and supple Lymph Lymphatic: no lymphadenopathy noted and no lymphedema noted Resp normal respiratory effort, normal air movement and clear to auscultation bilaterally Cardio regular rate, regular rhythm, S1 normal heart sound, S2 normal heart sound and no murmurs GI normal to inspection, nondistended, normoactive bowel sounds, soft to palpation, non-tender and non-distended Extremity normal capillary refill General Extremity: no tenderness to palpation of joints or extremities Skin General Skin Exam: no breakdown Neuro CN's II-XII intact bilaterally, no focal motor deficits, no sensory deficits noted and deep tendon reflexes 2+ bilaterally Motor Exam: strength 5/5 throughout and general weakness Psych thought process normal, cooperative and affect normal Appearance: appropriate Assessment & Plan Assessment/Plan (1) Dysarthria: PLAN: Plan #Dysarthria, to rule out a stroke * dysarthria has resolved and he feels well * CT of the brain showed no acute intracranial pathology * MRI ordered and pending * CT of the brain showed minimal plaque formation at the origin of the right and left internal carotid artery * 2D echo showed EF of 60% with LV systolic function and negative bubble study as well as stage 1 diastolic dysfunction. * PT/OT on board * fall precautions * neurology on board * On aspirin and high intensity statin. #History of B-cell lymphoblastic leukemia: Patient on chemotherapy. Follows up with oncology. #History of pulm embolism: On Xarelto #Kidney stones * CT of the abdomen and pelvis showed multiple bilateral renal cyst and nonobstructive intrarenal calculi with 2 adjacent 5.1 mm calculi in the proximal portion of the left ureter causing a moderate amount of left hydronephrosis with heterogeneous enlargement of the prostate and indentation of the bladder base. * Patient of Ramirez catheter inserted and follow-up with urology on outpatient basis. * #Paroxysmal afib: stable. On xarelto.-Implantable loop recorder in place #GERD: on PPI #BPH: on doxazosin #Depression with anxiety: on soloft #Dementia: On Zoloft DVT prophylaxis: already on xarelto Charges/Coding Visit Charges Inpatient E&M: 50195 Subs Hosp L2
--- NOTE | 2023-10-05 18:58 | CON.PCM.NE_ITS ---
Assessment and Plan: Neuro Assessment/Plan ERROR ENTRY HPI Consult Data Date of Consult: 10/05/23 HPI Narrative HPI Narrative: PIOTR PARKS, is a 88 M who presents [facility] Medical History Wears glasses Cancer Non-smoker DVT (deep venous thrombosis) Diastolic dysfunction without heart failure Pulmonary hypertension Syncope Ejection fraction < 50% Pulmonary embolism B-cell lymphoblastic leukemia Retraction of blood clot History of kidney stones Home Medications ?Medication ?Instructions ?Recorded ?Last Taken ?Type pantoprazole 40 mg tablet,delayed 40 mg PO DAILY 12/12/21 10/03/23 History release rivaroxaban 20 mg tablet (Xarelto) 20 mg PO DAILY #90 tabs 02/03/23 10/02/23 Rx sertraline 25 mg tablet 25 mg PO DAILY 03/24/23 10/03/23 History allopurinol 300 mg tablet 300 mg PO DAILY 10/04/23 10/03/23 History donepezil 10 mg tablet 10 mg PO DAILY 10/04/23 10/03/23 History prochlorperazine maleate 10 mg 10 mg PO Q6H PRN nausea and 10/04/23 10/03/23 History tablet vomiting Allergy/AdvReac Type Severity Reaction Status Date / Time No Known Allergies Allergy Verified 10/04/23 09:08 Family History Other Heart disease Surgical History Hx of knee surgery History of back surgery Social History Smoking Status: Never smoker alcohol intake: current alcohol intake frequency: holidays/special occasions only substance use type: does not use caffeine: Yes Vital Signs Vital Signs Vital Signs: 10/04/23 19:18 10/04/23 21:58 10/04/23 22:00 Temperature 97.9 F Temperature Source Temporal Pulse Rate 65 Respiratory Rate 16 Respiratory Effort Normal Non-Labored Respiratory Depth Normal Respiratory Pattern Normal Blood Pressure 122/76 H Blood Pressure Mean 91 Blood Pressure Source Monitor Blood Pressure Position Semi-Fowlers Blood Pressure Location Left Arm Pulse Ox 98 95 Oxygen Delivery Method Room Air Room Air Room Air 10/05/23 02:00 10/05/23 02:06 10/05/23 06:00 Temperature 97.9 F 97.9 F Temperature Source Temporal Temporal Pulse Rate 58 L 61 Respiratory Rate 16 18 Respiratory Effort Normal Non-Labored Respiratory Depth Normal Respiratory Pattern Normal Blood Pressure 125/74 H 128/78 H Blood Pressure Mean 91 94 Blood Pressure Source Monitor Monitor Blood Pressure Position Semi-Fowlers Semi-Fowlers Blood Pressure Location Left Arm Left Arm Pulse Ox 95 98 Oxygen Delivery Method Room Air Room Air Room Air 10/05/23 07:41 10/05/23 09:00 10/05/23 09:00 Temperature 97.1 F L Temperature Source Temporal Pulse Rate 62 62 Respiratory Rate 18 Respiratory Effort Normal Non-Labored Respiratory Depth Normal Respiratory Pattern Normal Blood Pressure 132/77 H Blood Pressure Mean 95 Blood Pressure Source Monitor Blood Pressure Position Sitting Blood Pressure Location Left Arm Pulse Ox 97 97 97 Oxygen Delivery Method Room Air Room Air 10/05/23 09:55 10/05/23 12:50 10/05/23 14:00 Temperature 97.8 F Temperature Source Oral Pulse Rate 59 L Respiratory Rate 16 Respiratory Effort Normal Non-Labored Respiratory Depth Normal Respiratory Pattern Normal Blood Pressure 158/80 H Blood Pressure Mean 106 Blood Pressure Source Monitor Blood Pressure Position Semi-Fowlers Blood Pressure Location Left Arm Pulse Ox 98 98 Oxygen Delivery Method Room Air Room Air Room Air 10/05/23 16:30 Temperature 97.8 F Temperature Source Oral Pulse Rate 60 Respiratory Rate 16 Respiratory Effort Respiratory Depth Respiratory Pattern Blood Pressure 119/72 Blood Pressure Mean 87 Blood Pressure Source Monitor Blood Pressure Position Sitting Blood Pressure Location Left Arm Pulse Ox 97 Oxygen Delivery Method Room Air Weight Weight: 87.1 kg Body Mass Index (BMI) 26.7 EEG Results Procedure Details EEG Procedure Details: PIOTR PARKS is a 88 year old M with a past medical history of , who presents for evaluation of Electroencephalogram on DATE at TIME NIHSS NIHSS Nursing Documentation NIHSS Nursing Documentation: NIH Stroke Scale Start: 10/04/23 13:08 Freq: Status: Discharge Protocol: Activity Type Activity Date Activity User E-sign Co-sign Detail Recorded Client Recorded Date Recorded By Document 10/04/23 13:29 [id number] 10/04/23 13:30 KP 10/04/23 13:29 NIH Stroke Scale [NIHSS] A score of 0 is normal or asymptomatic . Total possible score is 42. Inpatient: RN or Physician to activate a stroke alert for onset of new stroke symptoms or with NIHSS increase >/= 3 points. Following change in neurological status, NIHSS will be performed per physician order or more frequently PRN. -1a. Level of Consciousness Alert; keenly responsive -1b. LOC Questions Answers one question correctly. -1c. LOC Commands Performs both tasks correctly . -2. Best Gaze Normal -3. Visual No visual loss -4. Facial Palsy Minor paralysis (flattened nasolabial fold , asymmetry on smiling) -5a. Left Arm No drift; arm holds 90 (or 45 ) degrees for full 10 seconds -5b. Right Arm No drift; arm holds 90 (or 45 ) degrees for full 10 seconds -6a. Left Leg No drift; leg holds 30-degree position for full 5 seconds -6b. Right Leg No drift; leg holds 30-degree position for full 5 seconds -7. Limb Ataxia Absent -8. Sensory Normal; no sensory loss -9. Best Language Mild-to- moderate aphasia; -10. Dysarthria Normal -11. Extinction and Inattention No abnormality -Total 3 Query Text:A score of 0 is normal or asymptomatic. Total possible score is 42 . ED: Notify Physician for NIHSS increase by > / = 3 points. Inpatient: RN or Physician to activate a stroke alert for NIHSS increase of > / = 3 points. NIHSS: Ischemic Stroke/TIA Start: 10/04/23 13:57 Text: For PCU Patients: NIH and Neuro Check every 4 Status: Complete hours, PRN and with change in RN caregiver. Freq: [id number] Protocol: Activity Type Activity Date Activity User E-sign Co-sign Detail Recorded Client Recorded Date Recorded By Document 10/05/23 16:30 MG Desktop 10/05/23 16:40 MG 10/05/23 16:30 -1a. Level of Consciousness Alert; keenly responsive -1b. LOC Questions Answers one question correctly. -1c. LOC Commands Performs both tasks correctly . -2. Best Gaze Normal -3. Visual No visual loss -4. Facial Palsy Minor paralysis (flattened nasolabial fold , asymmetry on smiling) -5a. Left Arm No drift; arm holds 90 (or 45 ) degrees for full 10 seconds -5b. Right Arm No drift; arm holds 90 (or 45 ) degrees for full 10 seconds -6a. Left Leg No drift; leg holds 30-degree position for full 5 seconds -6b. Right Leg No drift; leg holds 30-degree position for full 5 seconds -7. Limb Ataxia Absent -8. Sensory Normal; no sensory loss -9. Best Language No aphasia; normal -10. Dysarthria Normal -11. Extinction and Inattention No abnormality -Total 2 Query Text:A score of 0 is normal or asymptomatic. Total possible score is 42 . ED: Notify Physician for NIHSS increase by > / = 3 points. Inpatient: RN or Physician to activate a stroke alert for NIHSS increase of > / = 3 points. Coma Scale [Assess] -Eye Opening Spontaneous -Motor Obeys Commands -Verbal Oriented [Total] -Coma Scale Total 15 Lab / Micro Data 10/05/23 06:26 10/05/23 06:26 Labs: Laboratory Results - last 24 hr 10/05/23 06:26: WBC 14.4 H, RBC 4.09 L, Hgb 12.5 L, Hct 37.9 L, MCV 92.7, MCH 30.6, MCHC 33.0, RDW Std Deviation 44.6 H, RDW Coeff of Omer 13.2, Plt Count 64 L , MPV 11.4, Immature Gran % (Auto) 0.100, Neut % (Auto) 91.5 H, Lymph % (Auto) 5.8 L, [place] % (Auto) 2.4, Eos % (Auto) 0.1, Baso % (Auto) 0.1, Absolute Neuts (auto) 13.1 H, Absolute Lymphs (auto) 0.84, Nucleated RBC % 0, Sodium 141, Potassium 3.6, Chloride 110 H, Carbon Dioxide 26.0, Anion Gap 5, BUN 18, Creatinine 1.11, Estim Creat Clear Calc 48.99, Est GFR (MDRD) Af Amer 80, Est GFR (MDRD) Non-Af 66, BUN/Creatinine Ratio 16.2, Glucose 93, Calcium 8.2 L, Magnesium 2.1, Triglycerides 79, Cholesterol 102, LDL Cholesterol 39, VLDL Cholesterol 16, HDL Cholesterol 47 Imaging Radiology Impression Echocardiogram 10/04/23 13:22 Interpretation Summary Normal LV size. Left ventricular systolic function is normal. cannot exclude right ventricular noncompaction. Bubble contrast study negative for right to left interatrial shunt. Stage 1 diastolic dysfunction. The left ventricular ejection fraction is 60 %. Ordering Physician: Danish Genao Performed By: Kristina Ray, LUIS Brain CT 10/05/23 05:55 IMPRESSION: No acute intracranial finding. Electronically Signed: Rolando Donato MD at 7:29 EDT Reading Location ID and State: [address] [place] [address] Tel , Service support , Active Medications Active Medications Active Medications: Current Medications Generic Name Dose Route Start Last Admin Trade Name Freq PRN Reason Stop Dose Admin Acetaminophen 650 mg 10/04/23 13:57 Acetaminophen 325 Mg Tablet PO Q6H PRN PRN Pain 1-10 Or Fever>100.7 Albuterol Sulfate 2.5 mg 10/04/23 13:57 Albuterol 2.5 Mg/3 Ml Vial.Neb. INHALATION Q2H PRN PRN SOB &/OR WHEEZING Allopurinol 300 mg 10/05/23 10:00 10/05/23 10:10 Allopurinol 300 Mg Tablet PO 300 mg DAILY ZBIGNIEW Administration Aspirin 81 mg 10/05/23 08:00 10/05/23 09:08 Aspirin 81 Mg Tab.Chew PO 81 mg BREAKFAST ZBIGNIEW Administration Atorvastatin Calcium 40 mg 10/04/23 22:00 10/04/23 21:57 Atorvastatin Calcium 40 Mg Tablet PO 40 mg QHS ZBIGNIEW Administration Donepezil HCl 10 mg 10/05/23 10:00 10/05/23 10:10 Donepezil Hcl 10 Mg Tablet PO 10 mg DAILY ZBIGNIEW Administration Guaifenesin 20 ml 10/04/23 13:57 Guaifenesin 10 Ml Udc (200mg/10ml) PO Q4H PRN PRN COUGH Sodium Chloride 500 mls @ 15 mls/hr 10/04/23 14:02 IV PRN PRN Blood Transfusion Sodium Chloride 250 mls @ 15 mls/hr 10/04/23 14:02 IV .[id number] PRN Additional IVPB Infusion Sodium Chloride 250 mls @ 15 mls/hr 10/04/23 14:02 IV .[id number] PRN Saline Flush Melatonin 3 mg 10/04/23 13:57 Melatonin 3 Mg Tablet PO QHS PRN PRN INSOMNIA Nitroglycerin 0.4 mg 10/04/23 13:57 Nitroglycerin (Inpatient Use) 0.4 Mg Tab.Subl SL Q5M PRN CARDIAC/CHEST PAIN Ondansetron HCl 4 mg 10/04/23 13:57 Ondansetron 4 Mg/2 Ml Vial IV Q8H PRN PRN NAUSEA/VOMITING Pantoprazole Sodium 40 mg 10/05/23 10:00 10/05/23 10:09 Pantoprazole Sodium 40 Mg Tablet PO 40 mg DAILY ZBIGNIEW Administration Rivaroxaban 20 mg 10/05/23 17:00 10/05/23 17:27 Rivaroxaban 20 Mg Tablet PO Not Given DAILY@DINNER ZBIGNIEW Senna/Docusate Sodium 2 tablet 10/04/23 13:57 Senna/Docusate Sodium 1 Tablet PO BID PRN PRN Constipation Sertraline HCl 25 mg 10/05/23 10:00 10/05/23 10:10 Sertraline 50 Mg Tablet PO 25 mg DAILY ZBIGNIEW Administration Sodium Chloride 10 - 40 ml 10/04/23 14:02 10/05/23 09:09 0.9% Saline Lock 10 Ml Syringe IV 20 ml UD PRN Administration SALINE FLUSH
[2023-10-05] MEDS: Atorvastatin Calcium 40 MG Tablet PO (21:45)
[2023-10-06 03:50] VITALS: BP 116/72; PULSE 62; RESP 16; TEMP 36.6; O2SAT 95
[2023-10-06 04:34] VITALS: BMI 26.9
[2023-10-06 07:11] LABS: Absolute Lymphocyte Count 0.98 X10^3/uL (0.83-4.51); Basophil# 0.05 X10^3/uL; Basophil% 0.6 % (0-1); Eosinophil# 0.02 X10^3/uL; Eosinophils% 0.2 % (0-5); Hemoglobin 12.5 g/dL (13.0-16.5); Lymphocyte # 0.98 X10^3/ul (0.83-4.51); Lymphocyte % 11.3 % (19-41); Mean Corp Hgb Conc 32.9 g/dL (32-36); Mean Corpuscular Hgb 30.3 pg (27.0-32.0); Mean Platelet Vol. 10.6 fl (6.2-12.0); Monocyte# 0.55 X10^3/uL; Monocyte% 6.4 % (0-10); NRBC Flagged by Analyzer 0 % (0-5); Neutrophil # 7.02 X10^3/uL (2.7-7.7); Neutrophil % 81.2 % (47-70); POSITIVE COUNT YES; POSITIVE MORPHOLOGY YES; Platelet Count 60 K/mm3 (150-450); RBC Distribution Width CV 13.2 % (11.6-14.6); RBC Distribution Width SD 44.3 fl (35.1-43.9); Red Blood Count 4.13 M/mm3 (4.6-6.2); White Blood Count 8.7 K/mm3 (4.4-11.0)
[2023-10-06 07:29] LABS: Anion Gap 3 (5-15); BUN 19 mg/dL (7-18); Calcium,Total 8.4 mg/dL (8.5-10.1); Chloride 109 mmol/L (98-107); Creatinine, Serum 0.79 mg/dL (0.70-1.30); EST Glomerular Filtration Rate 98 mL/min (>60); Est Glom Filt Rate - Afr Amer 119 mL/min (>60); Estimated Creatinine Clearance 67.98 ml/min; Glucose 94 mg/dL (74-106); Potassium 3.6 mmol/L (3.5-5.1); Sodium Level 139 mmol/L (136-145)
[2023-10-06 07:36] LABS: Differential Indicated SCAN CRITERIA MET
[2023-10-06 07:51] VITALS: O2SAT 96
[2023-10-06 08:16] LABS: Platelet Estimate MKD DEC (ADEQ)
[2023-10-06 08:17] LABS: Differential Comment SCANNED
[2023-10-06] MEDS: Sertraline 50 MG Tablet 25 MG PO (08:18)
[2023-10-06] MEDS: Donepezil HCl 10 MG Tablet PO (08:18)
[2023-10-06] MEDS: Allopurinol 300 MG Tablet PO (08:18)
[2023-10-06] MEDS: Aspirin 81 MG TAB.CHEW PO (08:18)
[2023-10-06] MEDS: Pantoprazole Sodium 40 MG Tablet PO (08:18)
[2023-10-06 08:24] VITALS: BP 163/93; PULSE 61; RESP 12; TEMP 36.6; O2SAT 97
--- NOTE | 2023-10-06 10:10 | DCINST_ITS ---
Discharge Instructions Diet Discharge Diet: Low fat / Low cholesterol Activity Discharge Activity: Return to Normal Activity Weight Bearing Status: Weight bearing as tolerated Dressing / Incision Call your doctor if you observe: Fever of 101 or Higher, Shortness of breath, Dizziness, Swelling in the ankles and Chest pain Follow Up Care Test Results: Test results from this visit will be discussed in further detail at your follow- up appointment, if applicable. Discharge Plan Admission Admit Date/Time: 10/04/23 12:57 Primary Reason for Your Visit: dysarthria Attending Provider: Laly Thornton Primary Care Provider: Kishor Coleman Consulting Providers: Fabien Lee; Katalina Gu; Promise Tracy; Loni Munson; Deysi Gaines; Carlos Jimenes; Tara Flores; Vitor Dempsey; Charly Winchester; Santos Javier; Dolores Clark; Carlos Forrest; Ally Yi; Drake Medeiros; Mike Wells; Randy Irene; Xiomara Richards; Corky Romero; Kesha Russell; Jessica Nichols; Danish Genao Instructions Patient Instructions: What Is Dysarthria, Dysarthria: Improving Speech Additional Instructions / Restrictions: you are now on aspirin and xarelto. If you see any evidence of bleeding, please stop the aspirin and xarelto immediately and call your PCP or come to the ED. Keep BP log at home and check your BP twice daily. Show BP log to your PCP to deterine if you should be started on blood pressure medication. Discharge Orders/Prescriptions Prescriptions: New atorvastatin 40 mg Tablet 40 mg PO QHS Qty: 30 2RF aspirin 81 mg Tablet,Chewable 81 mg PO BREAKFAST Qty: 30 1RF Continued sertraline 25 mg tablet 25 mg PO DAILY Patient Comments: TAKE 1 TABLET BY MOUTH EVERY DAY pantoprazole 40 mg tablet,delayed release (DR/EC) 40 mg PO DAILY donepezil 10 mg tablet 10 mg PO DAILY prochlorperazine maleate 10 mg tablet 10 mg PO Q6H PRN (Reason: nausea and vomiting) allopurinol 300 mg tablet 300 mg PO DAILY Xarelto 20 mg tablet 20 mg PO DAILY Qty: 90 3RF Rx Instructions: must administer with evening meal Referrals / Follow Up: Leilani Banda MARKETING PROJECT LEAD, MARKETING PROJECT LEAD-C [Non-Staff] - 10/13/23 1:00 pm Disposition Disposition (needs filled in before D/C Order can be placed): Home, Self Care
--- NOTE | 2023-10-06 10:18 | DS.PCM_ITS ---
Providers Date of Admission: 10/04/23 Date of Discharge: 10/06/23 Primary Care Physician: Dr. Kishor Coleman MD Consultations 10/04/23 13:57 Consult: Tele-Neurology Routine Consulting Provider: [facility] Reason for Consult: Acute Ischemic Stroke/TIA EMERGENT Consult: No MD Notified: Yes Date Notified: 10/04/23 Time Notified: 12:59 Method of Notification: Answering Service Nursing Unit Staff Notify [facility] of Tele-Neurology Consult: Yes 10/04/23 17:42 Consult: Onc/Wound/beer cooler Routine Comment: Reason For Visit: SUSPECTED CVA Diagnosis Discharge Diagnosis (1) Dysarthria: Status: Acute Code(s): R47.1 - Dysarthria and anarthria Plan #Dysarthria, to rule out a stroke * dysarthria has resolved and he feels well * CT of the brain showed no acute intracranial pathology * MRI ordered and pending * CT of the brain showed minimal plaque formation at the origin of the right and left internal carotid artery * 2D echo showed EF of 60% with LV systolic function and negative bubble study as well as stage 1 diastolic dysfunction. * PT/OT on board * fall precautions * neurology on board * On aspirin and high intensity statin. #History of B-cell lymphoblastic leukemia: Patient on chemotherapy. Follows up with oncology. #History of pulm embolism: On Xarelto #Kidney stones * CT of the abdomen and pelvis showed multiple bilateral renal cyst and nonobstructive intrarenal calculi with 2 adjacent 5.1 mm calculi in the proximal portion of the left ureter causing a moderate amount of left hydronephrosis with heterogeneous enlargement of the prostate and indentation of the bladder base. * Patient of Ramirez catheter inserted and follow-up with urology on outpatient basis. * #Paroxysmal afib: stable. On xarelto.-Implantable loop recorder in place #GERD: on PPI #BPH: on doxazosin #Depression with anxiety: on soloft #Dementia: On Zoloft DVT prophylaxis: already on xarelto Medications at Discharge Home Medications pantoprazole 40 mg tablet,delayed release 40 mg PO DAILY acid reflux 12/12/21 rivaroxaban 20 mg tablet (Xarelto) 20 mg PO DAILY blood thinner #90 tabs 02/03/23 sertraline 25 mg tablet 25 mg PO DAILY mood 03/24/23 allopurinol 300 mg tablet 300 mg PO DAILY gout 10/04/23 donepezil 10 mg tablet 10 mg PO DAILY memory 10/04/23 prochlorperazine maleate 10 mg tablet 10 mg PO Q6H PRN nausea and vomiting 10/04/23 aspirin 81 mg chewable tablet 81 mg PO BREAKFAST #30 tabs 10/06/23 atorvastatin 40 mg tablet 40 mg PO QHS #30 tabs 10/06/23 Hospital Course Operations None Procedures 2-D Echocardiogram Summary of Care Provided Minutes Spent on Discharge: 55 Hospital Course: Patient is an 88-year-old male with a past medical history as outlined which include diffuse large B-cell lymphoma undergoing chemotherapy as well as paroxysmal A-fib and history of pulmonary embolism was admitted through the ED on 10/04/2023 with a complaint of slurred speech. Patient could not give much history otherwise in light of underlying dementia. CT of the brain showed no acute intracranial pathology and CT of the head and neck showed no evidence of large vessel occlusion. He was admitted for stroke workup. Patient could not have an MRI done due to him having a loop recorder in place. 2D echo showed EF of 60% with left ventricular systolic function and negative bubble study as well as 81 diastolic dysfunction. Patient was placed on aspirin and high intensity statin. Neurology was consulted and recommended that patient continue the antiplatelet and high intensity statin. Patient remained stable and was discharged home on 10/06/2023. He was discharged on aspirin and was counseled about the increased risk of bleeding as well as also on Xarelto for history of PE and paroxysmal A-fib. He was counseled that he should call his PCP or go to the nearest ED and stop taking the aspirin and Xarelto if he had any bleeding. He was also discharged on high intensity statin. He is follow-up with his primary care doctor within 1 to 2 weeks. Patient seen and examined prior to discharge. He had no active complaints and had an uneventful night. Review of systems otherwise negative. Labs and vitals reviewed. Medications reviewed and reconciled. Physical Exam Const alert, oriented x3, no apparent distress and well nourished General Appearance: cooperative, comfortable and well developed Orientation / Consciousness: awake HEENT normocephalic, head/scalp atraumatic, hearing grossly normal bilaterally, moist oral mucous membranes and oropharynx normal Mouth: oral and palatal mucosa normal Eyes PERRL, EOMs intact bilaterally and conjunctivae normal Neck no lymphadenopathy and supple Lymph Lymphatic: no lymphadenopathy noted and no lymphedema noted Resp normal respiratory effort, normal air movement and clear to auscultation bilaterally Cardio regular rate, regular rhythm, S1 normal heart sound, S2 normal heart sound and no murmurs GI normal to inspection, nondistended, normoactive bowel sounds, soft to palpation, non-tender and non-distended Extremity normal to inspection, full ROM, normal capillary refill and no clubbing, cyanosis or edema General Extremity: no tenderness to palpation of joints or extremities Skin no rashes or lesions noted General Skin Exam: no breakdown Neuro oriented x3, CN's II-XII intact bilaterally, moves all extremities, no focal motor deficits, no sensory deficits noted and deep tendon reflexes 2+ bilaterally Sensorium / Orientation: awake and alert Motor Exam: strength 5/5 throughout and general weakness Psych thought process normal, cooperative and affect normal Appearance: appropriate Weight / BMI Weight Weight: 192 lb 10.944 oz Body Mass Index (BMI) 26.9 ABG / Lab / Microbiology Data 10/06/23 06:45 10/06/23 06:45 Laboratory: Laboratory Results - last 24 hr 10/06/23 06:45: WBC 8.7, RBC 4.13 L, Hgb 12.5 L, Hct 38.0 L, MCV 92.0, MCH 30.3, MCHC 32.9, RDW Std Deviation 44.3 H, RDW Coeff of Omer 13.2, Plt Count 60 L, MPV 10.6, Immature Gran % (Auto) 0.300, Neut % (Auto) 81.2 H, Lymph % (Auto) 11.3 L, [place] % (Auto) 6.4, Eos % (Auto) 0.2, Baso % (Auto) 0.6, Absolute Neuts (auto) 7.0, Absolute Lymphs (auto) 0.98, Nucleated RBC % 0, Differential Comment SCANNED, Platelet Estimate MKD DEC, Sodium 139, Potassium 3.6, Chloride 109 H, Carbon Dioxide 27.0, Anion Gap 3 L, BUN 19 H, Creatinine 0.79, Estim Creat Clear Calc 67.98, Est GFR (MDRD) Af Amer 119, Est GFR (MDRD) Non-Af 98, BUN/Creatinine Ratio 24.0 H, Glucose 94, Calcium 8.4 L Microbiology: Microbiology 10/04/23 09:30 Mucosa - Nose SARS-CoV-2, Influenza & RSV (PCR) - Final Radiography Diagnostic Testing: Radiology Impression Echocardiogram 10/04/23 13:22 Interpretation Summary Normal LV size. Left ventricular systolic function is normal. cannot exclude right ventricular noncompaction. Bubble contrast study negative for right to left interatrial shunt. Stage 1 diastolic dysfunction. The left ventricular ejection fraction is 60 %. Ordering Physician: Danish Genao Performed By: Kristina Ray RDCS D/C Instructions Discharge Diet: Low fat / Low cholesterol Discharge Activity: Return to Normal Activity Weight Bearing Status: Weight bearing as tolerated Call your doctor if you observe: Fever of 101 or Higher, Shortness of breath, Dizziness, Swelling in the ankles and Chest pain Meaningful Use Info Meaningful Use Meaningful Use Diagnoses (Choose all that apply): None applicable Ischemic Stroke Statin Dosing Therapy Reference: STATIN DOSE THERAPY REFERENCE: * Patients > 75 years receive moderate or high dose statin therapy. * Patients 75 years or YOUNGER should receive HIGH intensity statin dose unless contraindicated. You will be required to document reason for non-treatment if statin daily dose does not meet guidelines. HIGH DOSE STATIN THERAPY DAILY Atorvastatin > than or = to 40 mg Rosuvastatin > than or = to 20 mg Amlodipine + Atorvastatin > than or = to 2.5/40 mg Ezetimibe + Simvastatin 10/80 mg Simvastatin 80mg Discharge Plan Admission Admit Date/Time: 10/04/23 12:57 Primary Reason for Your Visit: dysarthria Attending Provider: Laly Thornton Primary Care Provider: Kishor Coleman Consulting Providers: Fabien Lee; Katalina Gu; Promise Trayc; Loni Munson; Deysi Gaines; Carlos Jimenes; Tara Flores; Vitor Dempsey; Charly Winchester; Santos Javier; Dolores Clark; Carlos Forrest; Ally Yi; Drake Medeiros; Mike Wells; Randy Irene; Xiomara Richards; Corky Romero; Kesha Russell; Jessica Nichols; Danish Genao Instructions Patient Instructions: What Is Dysarthria, Dysarthria: Improving Speech Additional Instructions / Restrictions: you are now on aspirin and xarelto. If you see any evidence of bleeding, please stop the aspirin and xarelto immediately and call your PCP or come to the ED. Keep BP log at home and check your BP twice daily. Show BP log to your PCP to deterine if you should be started on blood pressure medication. Discharge Orders/Prescriptions Prescriptions: New atorvastatin 40 mg Tablet 40 mg PO QHS Qty: 30 2RF aspirin 81 mg Tablet,Chewable 81 mg PO BREAKFAST Qty: 30 1RF Continued sertraline 25 mg tablet 25 mg PO DAILY Patient Comments: TAKE 1 TABLET BY MOUTH EVERY DAY pantoprazole 40 mg tablet,delayed release (DR/EC) 40 mg PO DAILY donepezil 10 mg tablet 10 mg PO DAILY prochlorperazine maleate 10 mg tablet 10 mg PO Q6H PRN (Reason: nausea and vomiting) allopurinol 300 mg tablet 300 mg PO DAILY Xarelto 20 mg tablet 20 mg PO DAILY Qty: 90 3RF Rx Instructions: must administer with evening meal Referrals / Follow Up: Leilani Banda NP, HOUSING MANAGEMENT OFFICER-C [Non-Staff] - 10/13/23 1:00 pm Disposition Disposition (needs filled in before D/C Order can be placed): Home, Self Care Charges/Coding Visit Charges Inpatient E&M: 99587 Disch Hosp >30min
--- NOTE | 2023-10-06 10:54 | CASEMGMT ---
Patient has order for discharge. RN CM in to discuss needs at discharge. Patient denies needs or help at discharge. Patient had no further questions or concerns.
--- NOTE | 2023-10-06 10:56 | NURSING ---
Called dtr in attempts to update that patient is ready for d/c, patient to be d/c to home w/ SO. SO called and notified he is ready for D/C. Will call when at front door to transport patient to front door.
--- NOTE | 2023-10-06 11:12 | PHA.DC.MC.R ---
Pharmacy [facility] has performed discharge medication reconciliation and counseling for this patient. 1. ASPIRIN 81MG PO BREAKFAST 2. ATORVASTATIN 40MG PO QHS The patient's discharge medication list was reviewed for discrepancies and discrepancies were resolved. The patient was counseled on the following discharge medications and changes in medications for homegoing were reviewed. The Reason for Use, instructions for use, and potential side effects were reviewed for all new medications. The patient's questions regarding all of their medications were answered. The patient was able to verbally demonstrate an understanding of their discharge medications. Medications at Discharge Home Medications pantoprazole 40 mg tablet,delayed release 40 mg PO DAILY acid reflux 12/12/21 rivaroxaban 20 mg tablet (Xarelto) 20 mg PO DAILY blood thinner #90 tabs 02/03/23 sertraline 25 mg tablet 25 mg PO DAILY mood 03/24/23 allopurinol 300 mg tablet 300 mg PO DAILY gout 10/04/23 donepezil 10 mg tablet 10 mg PO DAILY memory 10/04/23 prochlorperazine maleate 10 mg tablet 10 mg PO Q6H PRN nausea and vomiting 10/04/23 aspirin 81 mg chewable tablet 81 mg PO BREAKFAST #30 tabs 10/06/23 atorvastatin 40 mg tablet 40 mg PO QHS #30 tabs 10/06/23
== END 2023-10-06 11:18 | disposition home or self-care (01) | DRG 92 ==
LOC: ED 10:22 → PCU 13:15
PROVIDERS: Admitting Provider Internal Medicine; Emergency Provider Emergency Medicine; PCP Family Medicine; Visit Provider Student in an Organized Health Care Education/Training Program
DX: R47.1 Dysarthria and anarthria (principal); C83.30 Diffuse large B-cell lymphoma, unspecified site; I50.32 Chronic diastolic (congestive) heart failure; N13.2 Hydronephrosis with renal and ureteral calculous obstruction; F03.90 Unspecified dementia, unspecified severity, without behavioral disturbance, psychotic disturbance, mood disturbance, and anxiety; I48.0 Paroxysmal atrial fibrillation; F41.8 Other specified anxiety disorders; R55 Syncope and collapse; K21.9 Gastro-esophageal reflux disease without esophagitis; Z79.01 Long term (current) use of anticoagulants; Z92.21 Personal history of antineoplastic chemotherapy; Z79.899 Other long term (current) drug therapy; Z86.711 Personal history of pulmonary embolism; N40.0 Benign prostatic hyperplasia without lower urinary tract symptoms; Z95.818 Presence of other cardiac implants and grafts
CPT/HCPCS: 36415; 36592; 70450; 70496; 70498; 74177; 80048; 80053; 80061; 80076; 81001; 83036; 83690; 83735; 84443; 84484; 85025; 87631; 93005; 93306; 94668; 94762; 97165; 97802; 99285; J7030; Q9967; A4216; J2405